=== PATIENT | female | born 1945 | race Caucasian/White ===

== ENCOUNTER 2017-07-04 23:52 | Inpatient (IN) | payer MEDICARE ==
[2017-07-05 00:59] LABS: Bilirubin Negative (Negative); Blood, Urine Negative (Negative); Clarity CLEAR (Clear); Glucose, Urine (Dipstick) Negative (Negative); Leukocyte Small (Negative); Nitrite Positive (Negative); Protein, Urine (Dipstick) Negative (Neg-Trace); Specific Gravity, Urine 1.017 (1.002-1.036); Urobilinogen 0.2 mg/dL (0.2-1.0); pH, Urine 5.5 (5.0-9.0)
[2017-07-05 01:02] LABS: Bacteria/HPF 4+ HPF (None Seen); Hyaline Casts/LPF 0-3 HYALINE CAST LPF (0-3 Hyaline); RBC/HPF 0-3 HPF (0-3); Squamous Epithelial None Seen HPF (0-3); WBC/HPF 0-3 HPF (0-3)
[2017-07-05] MEDS ORDERED: Dextrose 5% in Water 1,000 ML IV PRN (02:03)
[2017-07-05] MEDS ORDERED: HumaLOG 300 UNITS/3 ML VIAL SC PRN (02:03)
[2017-07-05] MEDS ORDERED: Dextrose 50% Abboject 50 ML SYRINGE SLOW IVP PRN ×2 (02:03)
[2017-07-05] MEDS ORDERED: Ondansetron ODT 4 MG TAB PO PRN (02:03)
[2017-07-05] MEDS ORDERED: Ondansetron HCl/PF 4 MG/2 ML Vial IVP PRN ×2 (02:03→17:43)
[2017-07-05] MEDS ORDERED: Acetaminophen 1,000 MG in Premix Bag 1 BAG IVPB SCH (02:03)
[2017-07-05] MEDS ORDERED: Ketorolac Tromethamine 30 MG/ML VIAL IVP SCH (02:03)
[2017-07-05 02:21] VITALS: BMI 56.6
[2017-07-05 02:21] LABS: #Lymphocytes 0.7 thou/uL (1.20-3.40); #Monocytes 1.2 thou/uL (0.11-0.59); %Basophils 0.1 % (0.0-1.0); %Eosinophils 0.2 % (0.0-10.0); %Lymphocytes 3.8 % (21.0-51.0); %Monocytes 6.8 % (0.0-10.0); %Neutrophils 89.1 % (42.0-75.0); Hemoglobin 11.3 g/dL (12.0-16.0); Mean Corpuscular HGB CONC 32.8 g/dL (32.0-36.0); Mean Corpuscular Hemoglobin 30.3 pg (27.0-31.0); Mean Corpuscular Volume 92.6 fl (81.0-99.0); Mean Platelet Volume 6.5 fL (7.4-10.4); Platelet Count 178 thou/uL (130-400); RBC Distribution Width 13.4 % (11.5-14.5); Red Blood Cell (RBC) Count 3.73 mill/uL (4.20-5.40)
--- NOTE | 2017-07-05 02:22 | HP ---
DATE OF ADMISSION: 07/04/2017 REQUESTING PHYSICIAN: Dr. Claudine Banerjee. ATTENDING SURGEON: Dr. Adam. CONSULTATIONS: Orthopedics, Dr. Lazaro. HISTORY OF PRESENT ILLNESS: Patient is a 72-year-old woman who was at home who ambulates w ith a walker when she was getting out of her chair to move to her walker. She was unable to get her feet properly when she fell, landing on her left lower extremity. The patient experienced immediate pain to her left ankle and knee. She was able to summon her son, who was in the house with her, who called EMS and the patient was brought to [facility] in [place], where she underwent evaluation and examination was noted to have a distal femur fracture on the left and a left bimalleolar ankle fr acture, at which time she was transferred to our facility for admission by the Trauma Service and [facility] evaluation. The patient denied loss of consciousness, shortness of breath, chest pain, or sy ncopal symptoms causing her fall. ALLERGIES: No drug allergies. CURRENT MEDICATIONS: 81 mg aspirin, biotin, Coreg, vitamin B12, ergocalciferol, iron supplement, Las ix, lisinopril, MiraLax, tramadol, vitamin D3. PAST MEDICAL HISTORY: Hyperlipidemia, heart murmur, polyarticular osteoarthritis, chronic leg pain, morbid obesity, tricuspid valve regurgitation, thyroid nodule, hypertension, hypertriglyceridemia, se asonal allergies, menopause, fibrocystic breast disease, heart valvular disease, coronary artery dise ase, and aortic stenosis. PAST SURGICAL HISTORY: Tonsillectomy and adenoidectomy, aortic valve replacement, cardiac pacemaker placement. SOCIAL HISTORY: Patient denies smoking, alcohol, or drug use. She currently lives at home with ernestina moran and ambulates with a walker. FAMILY HISTORY: Coronary artery disease. REVIEW OF SYSTEMS: Ten-point review of systems negative as otherwise stated. PHYSICAL EXAMINATION: VITAL SIGNS: Blood pressure 160/54, heart rate 82, respirations 20, temperature is 98.3, oxygen satu ration is 93% on 2 liters via nasal cannula. GENERAL: The patient is resting comfortably in bed. She is awake, alert, and oriented x3. Jessica coma scale is 15. HEENT: Head is normocephalic, atraumatic. Eyes: Extraocular motion intact. PERRLA bilaterally. E ars are atraumatic without discharge. Nose atraumatic without discharge. Oropharynx is clear. NECK: Nontender. Trachea is midline. No JVD. CHEST: Clear to auscultation with good inspiratory and expiratory effort. HEART: Regular rate and rhythm. ABDOMEN: Soft, flat, nontender with active bowel sounds. Pelvis is stable. EXTREMITIES: Bilateral upper extremities are neurovascularly intact and show full range of motion. There is a small contusion to the left wrist with minimal tenderness to palpation. Left lower extrem ity tenderness to palpation to the left knee consistent with her distal femur fracture. Remainder of her lower extremities immobilized in a posterior splint. She is able to wiggle her toes and has sen sation distally. The right lower extremity is unremarkable and neurovascularly intact. BACK: By history is reported as nontender and atraumatic. LABORATORY FINDINGS: White blood cell count 8.4, hemoglobin 12.6, hematocrit 40.7, platelets 207. I NR 1.0. Sodium 140, potassium 5.8, chloride 111, CO2 of 17, BUN 51, creatinine 1.47. LFTs are unrem arkable. Glucose 216. Cardiac enzymes are pending. RADIOGRAPHIC REPORTS: Two views of the left hip showed no acute left hip abnormality. Two views of the left ankle showed an acute minimally displaced fracture of the left distal fibula and medial mall eolus. Three views of the left knee showed acute comminuted fracture of the left distal femur fractu re. AP chest x-ray here shows no acute abnormalities. ASSESSMENT AND PLAN: 1. Status post ground level fall. 2. Acute pain secondary to trauma. 3. Closed distal left femur fracture. 4. Closed left bimalleolar fracture. 5. Hyperglycemia. 6. History of coronary artery disease. PLAN: We will be to admit the patient to the surgical floor for pain management. She will remain n. p.o. pulmonary toilet, gastritis prophylaxis, mechanical DVT prophylaxis. Orthopedic evaluation in t morning, Dr. Lazaro was notified prior to the patient's arrival. Patient will remain splinted. We will have physical and occupational therapy evaluate the patient postoperatively and most likely the patient will require inpatient rehabilitation. The evaluation, examination, radiographic, and la boratory findings will be discussed with Dr. Adam after this dictation.
[2017-07-05] MEDS: Sodium Chloride 0.9% 1,000 ML IV SCH ×3 (02:37→20:16)
[2017-07-05 02:46] LABS: CKMB 3.3 ng/mL (0-6.6); Troponin I Less than 0.010 ng/mL (< 0.028)
[2017-07-05 03:35] LABS: Anion Gap 12 mmol/L (10-20); BUN (Urea Nitrogen) 50 mg/dL (9.8-20.1); Calc. Creatinine Clearance 106 mL/min (70-130); Calcium 8.9 mg/dL (7.8-10.44); Carbon Dioxide 22 mmol/L (23-31); Chloride 112 mmol/L (98-107); Estimated GFR-MDRD 43; Glucose 196 mg/dL (83-110); Potassium 5.4 mmol/L (3.5-5.1); Sodium 141 mmol/L (136-145)
[2017-07-05] MEDS: Ketorolac Tromethamine 30 MG/ML VIAL IVP SCH ×3 (05:30→18:39)
--- NOTE | 2017-07-05 07:39 | RAD ---
CHEST 1 VIEW: Date: 07/05/17 HISTORY: Injury. COMPARISON: Chest 1 view dated 12/25/13. FINDINGS: The heart size is upper limits of normal. Mild pulmonary venous congestion. Mild prominence of the hi lum bilaterally. No pneumothorax. Dual lead pacer is similar. IMPRESSION: Cardiac silhouette upper limits of normal with mild prominence of the hilum bilaterally suggesting pu lmonary arterial hypertension. POS: [facility]
[2017-07-05] MEDS ORDERED: ePHEDrine/0.9% NaCl/PF SYRINGE 50 mg/10 ml ONE (07:41)
[2017-07-05] MEDS ORDERED: Lidocaine 1% PF 5 ML VIAL ONE (07:41)
[2017-07-05] MEDS ORDERED: Propofol 200 MG/20 ML VIAL ONE (07:41)
[2017-07-05] MEDS ORDERED: PHENYLEPHRINE-NS 100 MCG/ML 10 ML SYRINGE ONE (07:41)
[2017-07-05] MEDS ORDERED: Ondansetron HCl/PF 4 MG/2 ML Vial ONE (07:41)
[2017-07-05] MEDS ORDERED: CEFAZOLIN/Water 2 GM/20 ML SYRINGE SLOW IVP SCH (08:00)
--- NOTE | 2017-07-05 08:12 | CON ---
DATE OF CONSULTATION: 07/05/2017 CONSULTING PHYSICIAN: Dr. Shon Lazaro We were asked by ER and Trauma to see the patient. The patient was seen in [facility] found to have a distal left femur fracture and a left bimalleolar fracture of the ankle. The nestor ent states that she was in her normal state of health, but she has very bad knees. She states she zamarripa s to get up and lock her knees to get moving. She was unable to do so and fell. She was not able to walk after the fall because of pain. She denies hitting her head or any loss of consciousness. She has some good sensations in her legs. She is able to move both legs, obviously right better than le ft, due to the pain and because of the fracture. She did have a cardiac procedure a few years ago, b ct now sees her waitangi tribunal member once a year, so her cardiac health is improved. She does have a primar y doctor at [facility]. ALLERGIES: P[place]APP[place]. CURRENT MEDICATIONS: Biotin, carvedilol, vitamin B12, ergocalciferol, ferrous gluconate, Lasix, dax nopril, Nitrostat, MiraLax, tramadol, and vitamin D. PAST MEDICAL HISTORY: Hyperlipidemia, heart murmur, polyarticular osteoarthritis, leg pain, obesity, tricuspid valve regurg, thyroid nodules, hypertension, hypertriglyceridemia, allergies and menopause , fibrocystic breast disease, valvular disease, coronary artery disease, heart block, aortic stenosis . PAST SURGICAL HISTORY: Tonsils, adenoids, aortic valve replacement, cardiac pacemaker placement. SOCIAL HISTORY: Resides in [place]. No alcohol or nicotine or drug use. ACTIVITIES: The patient is in the water 5 days a week, but due to her significant knee pain she is u nable to do a lot of walking around. She has gotten deconditioned over time. REVIEW OF SYSTEMS: Denies any chest pain, shortness of breath. She is very pleasant, happy, until w e move that left lower extremity. Her left lower extremity is the main positive review of systems. PHYSICAL EXAMINATION: GENERAL: Well-nourished female. Family at bedside. Speech clear, fluent, oriented x3. HEENT: Normal exam. NECK: Supple. EXTREMITIES: Upper extremities, IV in the right hand. Otherwise extremities, bilateral upper extrem ities well. They are equal size, shape, symmetry, normal bulk and tone. Right lower extremity movin g well. DP, PT pulses intact. Left lower extremity, not in a knee immobilizer, but leg is bent and shortened. This is comfortable for her. She does have a splint on her left lower extremity. Sensat ions to the toes are intact and she is moving well. ASSESSMENT: Fall with ensuing left distal femur fracture and left bimalleolar fracture of the ankle. PLAN: I spoke with patient and family. Would like to get her set up for ORIF of both today. We hav e discussed risks and benefits of surgery and the patient is amenable to go forth with surgery as is family. The plan is to put a plate on the distal fibula and plate and screws at the ankle. We are w marking for Trauma to see if patient is medically cleared via Trauma and she may possibly need to see Cardiology.
[2017-07-05] MEDS: Famotidine 20 MG TAB PO SCH ×2 (10:10→20:17)
--- NOTE | 2017-07-05 10:11 | RAD ---
THREE VIEWS LEFT KNEE: Date: 07-05-17 History: Fracture. FINDINGS: There is a comminuted fracture involving the distal left femoral metadiaphysis with apex lateral and dorsal angulation of the fracture fragments. On the AP projection, the distal fracture fragment is di splaced laterally by approximately 3 cm. Osseous detail is limited on the AP and obliquely oriented v iews as these images were obtained with cross table imaging. There is osteoarthritis involving the le ft knee. There is narrowing of the medial joint compartment. Dense vascular calcifications are seen posterior to the knee. IMPRESSION: 1. Comminuted angulated and displaced fracture involving the distal left femoral metadiaphysis. 2. Diffuse osteopenia. 3. Osteoarthritis left knee. 4. Dense vascular calcifications. POS: [facility]
[2017-07-05] MEDS: Acetaminophen 1,000 MG in Premix Bag 1 BAG IVPB SCH ×3 (10:16→20:16)
--- NOTE | 2017-07-05 10:21 | RAD ---
LEFT ANKLE THREE VIEWS: History: Ankle injury. FINDINGS: Bones are demineralized. There is a obliquely oriented distal fibular shaft fracture which is nondisp laced. There also appears to be a posterior malleolar fracture and there is an obliquely oriented med ial malleolar fracture present. Overlying splint is seen. There are vascular and skin calcifications seen. IMPRESSION: Diffuse bony demineralization with a nondisplaced trimalleolar fracture. POS: [facility]
--- NOTE | 2017-07-05 10:56 | RAD ---
TWO VIEWS OF THE LEFT FEMUR: Date: 07-05-17 History: Trauma. Fracture left femur. FINDINGS: As noted on views of the left knee also obtained on this date, there is a comminuted fracture involvi ng the distal left femoral metadiaphysis with separation and displacement of fracture fragments, also described on views of the left knee. There is osteoarthritis involving the left knee with diffuse os teopenia. No additional fracture is appreciated. Dense vascular calcifications are seen in the iliac, femoral, and popliteal arteries. IMPRESSION: 1. Comminuted, displaced, and fracture involving the distal left femoral metadiaphysis. 2. Osteoarthritis left knee. POS: [facility]
[2017-07-05] MEDS ORDERED: CEFAZOLIN/Water 2 GM/20 ML SYRINGE ONE (12:27)
[2017-07-05] MEDS ORDERED: Fentanyl 250 MCG/5 ML VIAL ONE (12:51)
[2017-07-05] MEDS ORDERED: Atracurium 100 MG/10 ML VIAL ONE (12:52)
[2017-07-05] MEDS ORDERED: Levofloxacin 500 mg/D5W 100 ml Premix Bag ONE (13:27)
[2017-07-05] MEDS ORDERED: Albumin 25% 100 ML ONE (16:16)
[2017-07-05 16:42] LABS: #Monocytes 1.3 thou/uL (0.11-0.59); #Neutrophils 9.5 thou/uL (1.40-6.50); %Basophils 0.1 % (0.0-1.0); %Eosinophils 0.4 % (0.0-10.0); %Lymphocytes 8.7 % (21.0-51.0); %Monocytes 11.1 % (0.0-10.0); %Neutrophils 79.7 % (42.0-75.0); Mean Corpuscular HGB CONC 31.8 g/dL (32.0-36.0); Mean Corpuscular Hemoglobin 29.5 pg (27.0-31.0); Mean Corpuscular Volume 92.7 fl (81.0-99.0); Mean Platelet Volume 7.1 fL (7.4-10.4); Platelet Count 162 thou/uL (130-400); RBC Distribution Width 13.3 % (11.5-14.5); White Blood Cell (WBC) Count 11.9 thou/uL (4.8-10.8)
[2017-07-05 16:53] LABS: Anion Gap 11 mmol/L (10-20); BUN (Urea Nitrogen) 54 mg/dL (9.8-20.1); Calc. Creatinine Clearance 95 mL/min (70-130); Calcium 7.9 mg/dL (7.8-10.44); Carbon Dioxide 22 mmol/L (23-31); Chloride 113 mmol/L (98-107); Estimated GFR-MDRD 38; Glucose 187 mg/dL (83-110); Potassium 5.7 mmol/L (3.5-5.1); Sodium 140 mmol/L (136-145)
--- NOTE | 2017-07-05 16:58 | PRG ---
DATE OF SERVICE: 07/05/2017 ATTENDING PHYSICIAN: Dr. Jakob Adam. SUBJECTIVE: The patient is a 72-year-old female who was at home when she suffered a ground level fal l leading to a left bimalleolar ankle fracture and a left distal femur fracture. She was transferred to [place] on 07/04/2017 and admitted by Trauma Service and evaluated by Orthopedics. She is madhuri eduled to go to the OR today. On exam this morning, she vocalizes no complaints and reports that her pain is adequately controlled. OBJECTIVE: VITAL SIGNS: BP 124/67, pulse 89, temperature 98.5, respirations 20, O2 saturation 97% on room air. GENERAL: Patient is an elderly adult female resting in bed in no acute distress. HEENT: Normocephalic and atraumatic. LUNGS: Clear to auscultation bilaterally with normal effort respiration. CARDIOVASCULAR: Has a regular rate and rhythm. ABDOMEN: Soft and nontender with normal bowel sounds. EXTREMITIES: She is neurovascularly intact x4. LABORATORY DATA: Hematology: White blood cells 18.0, hemoglobin 11.3, hematocrit 34.5, platelets 17 8. Chemistry: Sodium 141, potassium 5.4, chloride 112, bicarbonate 22, BUN 50, creatinine 1.23. Ur inalysis positive for urine nitrites and leukocyte esterase with 4+ bacteria. Microbiology: Her uri ne culture was positive for presumably E. coli with greater than 100,000 colony forming units per mL. ASSESSMENT: 1. Status post ground level fall. 2. Acute traumatic pain. 3. Distal left femur fracture. 4. Left bimalleolar fracture. 5. Urinary tract infection. 6. Hyperglycemia. 7. History of coronary artery disease. PLAN: 1. OR today for surgical fixation of her left bimalleolar fracture and left distal femur fracture. 2. Patient will be started on Bactrim-DS for urinary tract infection. We will do a.m. labs to trend her white blood cell count. 2. Patient will have her pain control optimized postoperatively. We will encourage pulmonary toilet ing and begin a chemical deep venous prophylaxis as appropriate per orthopedic recommendations. 3. Rehab screen postoperatively. This patient was seen and examined along with Dr. Jakob Adam on rounds and agrees with the assessm ent and plan.
--- NOTE | 2017-07-05 17:35 | RAD ---
LEFT ANKLE INTRAOPERATIVE FLUOROSCOPY THREE VIEWS: 07/05/17 HISTORY: Left ankle fracture. FINDINGS/IMPRESSION: Intraoperative fluoroscopy was provided for internal fixation as performed by Dr. Lazaro. Spot fluo roscopic images show compression plate and multiple screws transfixing the lateral malleolus and a si ngle long screw transfixing the lateral malleolus. Alignment is anatomic. Skin rere are in place. There is dense calcifications of the arterial structures. FLUORO TIME: 6 seconds. POS: [facility]
--- NOTE | 2017-07-05 17:36 | RAD ---
LEFT FEMUR INTRAOPERATIVE FLUOROSCOPY TWO VIEWS 07/05/17 HISTORY: Fracture. FINDINGS/IMPRESSION: Intraoperative fluoroscopy was provided for internal fixation as performed by Dr. Lazaro. Spot fluo roscopic images show long lateral side plate transfixing the distal femur, in anatomic alignment. Mul tiple screws are in place. POS: [facility]
[2017-07-05] MEDS ORDERED: Nitroglycerin 0.4 MG TAB (25 Tab Bottle) SL PRN (17:48)
[2017-07-05 19:37] LABS: Hemoglobin 8.6 g/dL (12.0-16.0)
[2017-07-05] MEDS: Sulfameth/Trimethoprim DS 800-160mg TAB PO SCH (20:17)
[2017-07-05] MEDS: Ferrous Sulfate 325 MG TAB PO SCH (20:17)
[2017-07-05] MEDS: CEFAZOLIN/Water 2 GM/20 ML SYRINGE SLOW IVP SCH (20:23)
[2017-07-05] MEDS ORDERED: Carvedilol 6.25 MG TAB PO SCH (21:00)
[2017-07-05] MEDS: traMADol HCl 50 MG TAB PO SCH (23:53)
[2017-07-06] MEDS: Acetaminophen 1,000 MG in Premix Bag 1 BAG IVPB SCH (03:28)
[2017-07-06] MEDS: CEFAZOLIN/Water 2 GM/20 ML SYRINGE SLOW IVP SCH ×2 (03:28→13:11)
[2017-07-06] MEDS: traMADol HCl 50 MG TAB PO SCH ×3 (05:41→18:15)
[2017-07-06 05:52] LABS: Anion Gap 11 mmol/L (10-20); BUN (Urea Nitrogen) 56 mg/dL (9.8-20.1); Calc. Creatinine Clearance 81 mL/min (70-130); Calcium 7.6 mg/dL (7.8-10.44); Carbon Dioxide 23 mmol/L (23-31); Chloride 112 mmol/L (98-107); Estimated GFR-MDRD 32; Glucose 137 mg/dL (83-110); Magnesium 2.2 mg/dL (1.6-2.6); Phosphorus 4.9 mg/dL (2.3-4.7); Potassium 5.4 mmol/L (3.5-5.1); Sodium 141 mmol/L (136-145)
[2017-07-06 06:21] LABS: #Eosinphils 0.1 thou/uL (0.0-0.7); #Lymphocytes 1.2 thou/uL (1.20-3.40); #Monocytes 1.5 thou/uL (0.11-0.59); #Neutrophils 10.5 thou/uL (1.40-6.50); %Basophils 0.1 % (0.0-1.0); %Eosinophils 0.6 % (0.0-10.0); %Lymphocytes 8.8 % (21.0-51.0); %Monocytes 11.4 % (0.0-10.0); %Neutrophils 79.1 % (42.0-75.0); Hemoglobin 7.5 g/dL (12.0-16.0); Mean Corpuscular HGB CONC 32.3 g/dL (32.0-36.0); Mean Corpuscular Hemoglobin 31.1 pg (27.0-31.0); Mean Corpuscular Volume 96.4 fl (81.0-99.0); Mean Platelet Volume 7.5 fL (7.4-10.4); Platelet Count 120 thou/uL (130-400); RBC Distribution Width 13.5 % (11.5-14.5); Red Blood Cell (RBC) Count 2.39 mill/uL (4.20-5.40); White Blood Cell (WBC) Count 13.2 thou/uL (4.8-10.8)
[2017-07-06] MEDS ORDERED: Sodium Chloride 0.9% 500 ML IV ONE (08:10)
[2017-07-06] MEDS: Cyanocobalamin (Vitamin B-12) 1,000 MCG TAB PO SCH (08:35)
[2017-07-06] MEDS: Acetaminophen 500 MG TAB PO SCH ×3 (08:35→20:45)
[2017-07-06] MEDS: Famotidine 20 MG TAB PO SCH ×2 (08:36→20:45)
[2017-07-06] MEDS: Ferrous Sulfate 325 MG TAB PO SCH ×2 (08:36→20:45)
[2017-07-06] MEDS: Sulfameth/Trimethoprim DS 800-160mg TAB PO SCH ×2 (08:44→20:45)
[2017-07-06] MEDS: Heparin 5,000 UNITS/ML VIAL SC SCH ×3 (08:55→20:45)
[2017-07-06] MEDS ORDERED: Biotin [Biotin] 2,500 MCG PO SCH (09:00)
[2017-07-06] MEDS ORDERED: Lisinopril 20 MG TAB PO SCH (09:00)
[2017-07-06] MEDS ORDERED: Polyethylene Glycol 3350 17 GM Packet PO SCH ×2 (09:00→12:45)
[2017-07-06] MEDS: Ascorbic Acid 500 mg Chewable Tablet PO SCH ×2 (11:18→20:45)
[2017-07-06] MEDS: Senokot S 8.6-50 MG TAB PO SCH ×2 (11:19→20:45)
[2017-07-06] MEDS: Sodium Chloride 0.9% 1,000 ML IV SCH ×2 (16:52→20:44)
--- NOTE | 2017-07-06 16:57 | PRG ---
DATE OF SERVICE: 07/06/2017 ATTENDING PHYSICIAN: Jakob Adam DO SUBJECTIVE: The patient is a 72-year-old female who was at home when she suffered a ground level fal l leading to a left bimalleolar ankle fracture and a left distal femur fracture. She is now postop d ay #1 status post open reduction internal fixation. She has been tolerating a solid diet and voices no complaints this morning. She reports that her pain control is currently adequate. OBJECTIVE: VITAL SIGNS: BP 133/62, pulse 84, temperature 97.6, respirations 16, O2 sat 100% on room air. GENERAL: The patient is an elderly adult female, resting in bed, in no acute distress. HEENT: Normocephalic and atraumatic. LUNGS: Breath sounds are clear to auscultation bilaterally with normal effort. CARDIOVASCULAR: Has regular rate and rhythm. ABDOMEN: Soft, nontender with normal bowel sounds. EXTREMITIES: She is neurovascularly intact x4. LABORATORY DATA: Hematology: WBC is 13.2, hemoglobin 7.5, hematocrit 23.1, platelets 120. Chemistr y: Sodium 141, potassium 5.4, chloride 112, bicarbonate 23, BUN 56, creatinine 1.6, glucose 137, susana cium 7.6, phosphorus 4.9. Microbiology: Urine culture significant for E. coli. RADIOGRAPHIC FINDINGS: There are no images to review today. ASSESSMENT: 1. Status post ground level fall. 2. Acute traumatic pain. 3. Distal left femur fracture. 4. Left bimalleolar fracture. 5. Urinary tract infection. 6. Hyperglycemia. 7. Acute blood loss anemia. 8. Acute kidney injury. 9. History of coronary artery disease. PLAN: 1. Continue pain control as currently ordered. 2. We will get the patient one 500 mL bolus of fluid this morning as well as a unit of packed red bl ood cells. We will also continue to trend labs and monitor strict I's and O's. 3. Continue Bactrim-DS for urinary tract infection. 4. Patient has been evaluated by rehab and judged to be a good candidate for long term. Case management following to assist in placement and discharge planning. This patient was seen and examined along with Dr. Jakob Adam on rounds, who agrees with the assess ment and plan.
[2017-07-06] MEDS ORDERED: CEFAZOLIN SLOW IVP SCH (20:00)
[2017-07-06] MEDS ORDERED: STERILE WATER SLOW IVP SCH (20:00)
[2017-07-07] MEDS: Acetaminophen 500 MG TAB PO SCH ×5 (00:55→21:52)
[2017-07-07] MEDS: traMADol HCl 50 MG TAB PO SCH ×4 (00:55→18:05)
[2017-07-07] MEDS: Sodium Chloride 0.9% 1,000 ML IV SCH (05:33)
[2017-07-07 06:03] LABS: #Eosinphils 0.3 thou/uL (0.0-0.7); #Monocytes 1.4 thou/uL (0.11-0.59); #Neutrophils 7.5 thou/uL (1.40-6.50); %Basophils 0.3 % (0.0-1.0); %Eosinophils 2.5 % (0.0-10.0); %Lymphocytes 10.1 % (21.0-51.0); %Monocytes 13.9 % (0.0-10.0); %Neutrophils 73.2 % (42.0-75.0); Hemoglobin 7.6 g/dL (12.0-16.0); Mean Corpuscular HGB CONC 32.9 g/dL (32.0-36.0); Mean Corpuscular Hemoglobin 30.5 pg (27.0-31.0); Mean Corpuscular Volume 92.6 fl (81.0-99.0); Mean Platelet Volume 7.1 fL (7.4-10.4); Platelet Count 102 thou/uL (130-400); RBC Distribution Width 13.5 % (11.5-14.5); White Blood Cell (WBC) Count 10.3 thou/uL (4.8-10.8)
[2017-07-07 06:34] LABS: Anion Gap 9 mmol/L (10-20); BUN (Urea Nitrogen) 48 mg/dL (9.8-20.1); Calc. Creatinine Clearance 87 mL/min (70-130); Calcium 7.6 mg/dL (7.8-10.44); Carbon Dioxide 24 mmol/L (23-31); Chloride 112 mmol/L (98-107); Estimated GFR-MDRD 34; Glucose 126 mg/dL (83-110); Magnesium 2.2 mg/dL (1.6-2.6); Phosphorus 3.5 mg/dL (2.3-4.7); Sodium 140 mmol/L (136-145)
[2017-07-07] MEDS: Polyethylene Glycol 3350 17 GM Packet PO SCH (08:24)
[2017-07-07] MEDS: Ascorbic Acid 500 mg Chewable Tablet PO SCH ×2 (08:24→21:53)
[2017-07-07] MEDS: Senokot S 8.6-50 MG TAB PO SCH ×2 (08:25→21:53)
[2017-07-07] MEDS: Cyanocobalamin (Vitamin B-12) 1,000 MCG TAB PO SCH (08:26)
[2017-07-07] MEDS: Famotidine 20 MG TAB PO SCH ×2 (08:26→21:52)
[2017-07-07] MEDS: Ferrous Sulfate 325 MG TAB PO SCH ×2 (08:26→21:53)
[2017-07-07] MEDS: Sulfameth/Trimethoprim DS 800-160mg TAB PO SCH ×2 (08:26→21:53)
[2017-07-07] MEDS: Heparin 5,000 UNITS/ML VIAL SC SCH ×3 (08:26→21:53)
--- NOTE | 2017-07-07 11:53 | PRG ---
DATE OF SERVICE: 07/07/2017 ATTENDING PHYSICIAN: Dr. Salomon. SUBJECTIVE: The patient is a 72-year-old female who was diagnosed with a left bimalleolar ankle frac ture and left distal femur fracture after suffering a ground level fall 2 days ago. She is now posto p day #2 status post open reduction and internal fixation. She has been tolerating a solid diet and reports adequate pain control this morning. She voices no other complaints this morning. OBJECTIVE: VITAL SIGNS: BP 120/67, pulse 80, temperature 98.2, respirations 18, O2 sat 92% on 1 liter. GENERAL APPEARANCE: Patient is an elderly adult female resting in bed in no acute distress. HEENT: Normocephalic, atraumatic. RESPIRATORY: Breath sounds are clear to auscultation bilaterally with normal effort. CARDIOVASCULAR: She has regular rate and rhythm with no murmurs, gallops or rubs. ABDOMEN: Soft, nontender and nondistended. She has normal bowel sounds. EXTREMITIES: She is neurovascularly intact x4. LABORATORY DATA: Hematology; WBC is 10.3, hemoglobin 7.6, hematocrit 23.1, and platelets 102. Chemi stry: Sodium 140, potassium 5.0, chloride 112, bicarbonate 24, BUN 48, creatinine 1.5, glucose 126, and calcium 7.6. IMAGING: There are no images to review today. ASSESSMENT: 1. Status post ground level fall. 2. Distal left femur fracture. 3. Left bimalleolar fracture. 4. Urinary tract infection. 5. Acute blood loss anemia. 6. Acute kidney injury. 7. Acute traumatic pain. 8. Hyperglycemia. 9. History of coronary artery disease, present on admission. PLAN: 1. We will continue current pain control regimen which is adequate. The patient's urinary output zamarripa s improved since yesterday. She has put out a liter over the last 24 hours, which is double which deepti padilla put out the day before. We will continue maintenance IV fluids and monitor her urine output. Flui d boluses as appropriate. Continue to trend her kidney function. 2. We will hold off on further blood products this morning until the patient works with PT and OT. If she becomes symptomatic during this activity, then we will consider giving her an additional unit of PRBCs. 3. Continue Bactrim DS for urinary tract infection. 4. Case management following to assist with discharge planning. The [facility] next week. This patient was discussed over the phone with Dr. Jakob Adam who agrees with the assessment and p
[2017-07-08] MEDS: traMADol HCl 50 MG TAB PO SCH ×4 (00:42→17:51)
[2017-07-08] MEDS: Acetaminophen 500 MG TAB PO SCH ×4 (03:59→21:40)
[2017-07-08 05:17] LABS: #Eosinphils 0.3 thou/uL (0.0-0.7); #Monocytes 1.4 thou/uL (0.11-0.59); #Neutrophils 7.3 thou/uL (1.40-6.50); %Basophils 0.2 % (0.0-1.0); %Eosinophils 2.8 % (0.0-10.0); %Lymphocytes 9.9 % (21.0-51.0); %Monocytes 13.6 % (0.0-10.0); %Neutrophils 73.5 % (42.0-75.0); Hemoglobin 7.3 g/dL (12.0-16.0); Mean Corpuscular Hemoglobin 30.1 pg (27.0-31.0); Mean Corpuscular Volume 94.1 fl (81.0-99.0); Mean Platelet Volume 7.2 fL (7.4-10.4); Platelet Count 129 thou/uL (130-400); RBC Distribution Width 13.5 % (11.5-14.5); Red Blood Cell (RBC) Count 2.42 mill/uL (4.20-5.40)
[2017-07-08 05:37] LABS: Anion Gap 8 mmol/L (10-20); BUN (Urea Nitrogen) 42 mg/dL (9.8-20.1); Calc. Creatinine Clearance 101 mL/min (70-130); Calcium 7.8 mg/dL (7.8-10.44); Carbon Dioxide 23 mmol/L (23-31); Chloride 112 mmol/L (98-107); Estimated GFR-MDRD 41; Glucose 120 mg/dL (83-110); Magnesium 2.3 mg/dL (1.6-2.6); Phosphorus 2.9 mg/dL (2.3-4.7); Potassium 5.3 mmol/L (3.5-5.1); Sodium 138 mmol/L (136-145)
[2017-07-08] MEDS: Heparin 5,000 UNITS/ML VIAL SC SCH ×3 (09:00→21:43)
[2017-07-08] MEDS: Polyethylene Glycol 3350 17 GM Packet PO SCH (09:00)
[2017-07-08] MEDS: Sulfameth/Trimethoprim DS 800-160mg TAB PO SCH ×2 (09:03→21:44)
[2017-07-08] MEDS: Ferrous Sulfate 325 MG TAB PO SCH ×2 (09:03→21:44)
[2017-07-08] MEDS: Cyanocobalamin (Vitamin B-12) 1,000 MCG TAB PO SCH (09:03)
[2017-07-08] MEDS: Senokot S 8.6-50 MG TAB PO SCH ×2 (09:03→21:43)
[2017-07-08] MEDS: Famotidine 20 MG TAB PO SCH ×2 (09:04→21:44)
[2017-07-08] MEDS: Ascorbic Acid 500 mg Chewable Tablet PO SCH ×2 (09:05→21:44)
[2017-07-08] MEDS: Sodium Chloride 0.9% 1,000 ML IV SCH (10:30)
--- NOTE | 2017-07-08 17:19 | PRG ---
DATE OF SERVICE: 07/08/2017 ATTENDING PHYSICIAN: Dr. Salomon. SUBJECTIVE: The patient is a 72-year-old female with a left bimalleolar fracture and left distal fem ur fracture. She got after suffering a ground level fall on 07/05/2017. She is now postop day #3 st atus post open reduction internal fixation. She has been tolerating solid diet and reports adequate pain control. She reports no complaints on exam this morning. OBJECTIVE: VITAL SIGNS: BP 143/62, pulse 88, temperature 98.7, respirations 16, O2 sat 93% on room air. GENERAL: The patient is an elderly adult female resting in bed in no acute distress. HEENT: Normocephalic, atraumatic. RESPIRATORY: Her breath sounds are clear to auscultation bilaterally with normal effort. CARDIOVASCULAR: She has a regular rate and rhythm with no murmurs, gallops or rubs. ABDOMEN: Soft, nontender, nondistended. She has normal bowel sounds. EXTREMITIES: She is neurovascularly intact x4. LABORATORY DATA: WBC is 4.0, hemoglobin 7.3, hematocrit 22.8, platelets 129. Chemistry: Sodium 138 , potassium 5.3, chloride 112, bicarbonate 23, BUN 42, creatinine 1.29, glucose 120, calcium 7.8, ingrid sphorus 2.9, magnesium 2.3. IMAGING: There are no images to review today. ASSESSMENT: 1. Status post ground level fall. 2. Distal left femur fracture. 3. Left bimalleolar fracture. 4. Urinary tract infection. 5. Acute blood loss anemia. 6. Acute kidney injury. 7. Acute traumatic pain. 8. Hyperglycemia. 9. History of coronary artery disease, present on admission. PLAN: 1. Continue pain control as currently ordered. 2. The patient continues to have good urine output. We will continue to hold Lasix given her acute kidney injury; however, this seems to be improving. 3. Continue Bactrim for UTI. 4. The patient has a stable hemoglobin and hematocrit. These values are low, but given that she is asymptomatic, we will hold off on repeating blood products for the moment. 5. Case management following this discharge planning. The patient will be discharged to [facility] early next week. The patient was discussed over the phone with Dr. Jakob Adam who agrees with the assessment and pl an.
[2017-07-09] MEDS: traMADol HCl 50 MG TAB PO SCH ×4 (00:16→17:46)
[2017-07-09] MEDS: Acetaminophen 500 MG TAB PO SCH ×4 (03:16→22:04)
[2017-07-09 05:40] LABS: #Basophils 0.1 thou/uL (0.0-0.2); #Eosinphils 0.3 thou/uL (0.0-0.7); #Monocytes 1.4 thou/uL (0.11-0.59); #Neutrophils 7.5 thou/uL (1.40-6.50); %Basophils 0.6 % (0.0-1.0); %Eosinophils 2.6 % (0.0-10.0); %Lymphocytes 9.6 % (21.0-51.0); %Monocytes 13.6 % (0.0-10.0); %Neutrophils 73.6 % (42.0-75.0); Hemoglobin 7.7 g/dL (12.0-16.0); Mean Corpuscular HGB CONC 30.9 g/dL (32.0-36.0); Mean Platelet Volume 6.9 fL (7.4-10.4); Platelet Count 200 thou/uL (130-400); RBC Distribution Width 13.2 % (11.5-14.5); Red Blood Cell (RBC) Count 2.65 mill/uL (4.20-5.40); White Blood Cell (WBC) Count 10.2 thou/uL (4.8-10.8)
[2017-07-09 06:05] LABS: Anion Gap 10 mmol/L (10-20); BUN (Urea Nitrogen) 32 mg/dL (9.8-20.1); Calc. Creatinine Clearance 114 mL/min (70-130); Calcium 8.3 mg/dL (7.8-10.44); Carbon Dioxide 24 mmol/L (23-31); Chloride 111 mmol/L (98-107); Estimated GFR-MDRD 47; Glucose 128 mg/dL (83-110); Magnesium 2.2 mg/dL (1.6-2.6); Phosphorus 2.5 mg/dL (2.3-4.7); Potassium 5.5 mmol/L (3.5-5.1); Sodium 139 mmol/L (136-145)
[2017-07-09] MEDS: Polyethylene Glycol 3350 17 GM Packet PO SCH (08:21)
[2017-07-09] MEDS: Cyanocobalamin (Vitamin B-12) 1,000 MCG TAB PO SCH (08:22)
[2017-07-09] MEDS: Furosemide 20 MG TAB PO SCH (08:22)
[2017-07-09] MEDS: Senokot S 8.6-50 MG TAB PO SCH ×2 (08:23→22:05)
[2017-07-09] MEDS: Sulfameth/Trimethoprim DS 800-160mg TAB PO SCH ×2 (08:24→22:05)
[2017-07-09] MEDS: Heparin 5,000 UNITS/ML VIAL SC SCH ×3 (08:24→22:05)
[2017-07-09] MEDS: Famotidine 20 MG TAB PO SCH ×2 (08:24→22:04)
[2017-07-09] MEDS: Ascorbic Acid 500 mg Chewable Tablet PO SCH ×2 (08:24→22:04)
[2017-07-09] MEDS: Ferrous Sulfate 325 MG TAB PO SCH ×2 (08:24→22:05)
[2017-07-09] MEDS: Bisacodyl 10 MG SUPP PR SCH (09:10)
--- NOTE | 2017-07-09 17:11 | PRG ---
DATE OF SERVICE: 07/09/2017 ATTENDING PHYSICIAN: Jakob Adam DO SUBJECTIVE: The patient is a 72-year-old female with a left bimalleolar fracture, left distal femur fracture, which she received after suffering a ground level fall on 07/05/2017. She is now postop da y #4 status post open reduction internal fixation. She is tolerating a solid diet and reports adequa te pain control. She has had her Post catheter out now and her home meds restarted. She voices no complaints this morning on exam. OBJECTIVE: VITAL SIGNS: BP 162/71, pulse 99, temperature 98.6, respirations 20, O2 sat 93% on room air. GENERAL APPERANCE: The patient is an elderly adult female resting in bed in no acute distress. HEENT: Normocephalic and atraumatic. RESPIRATORY: Breath sounds clear to auscultation bilaterally with normal effort. CARDIOVASCULAR: She has regular rate and rhythm with no murmurs, gallops, or rubs. ABDOMEN: Soft, nontender, nondistended. She has normal bowel sounds. EXTREMITIES: She is neurovascularly intact x4. NEUROLOGIC: Her GCS is 15. LABORATORY DATA: Hematology: WBC is 10.2, hemoglobin 7.7, hematocrit 24.9, platelets 200. Chemistr y: Sodium 139, potassium 5.5, chloride 111, bicarbonate 24, BUN 32, creatinine 1.14, glucose 128. IMAGING: There are no images to review today. ASSESSMENT: 1. Status post ground level fall. 2. Distal left femur fracture. 3. Left bimalleolar ankle fracture. 4. Urinary tract infection. 5. Acute blood loss anemia. 6. Acute kidney injury. 7. Acute traumatic pain. 8. Hyperglycemia. 9. History of coronary artery disease, present on admission. PLAN: 1. Continue pain control as currently ordered. 2. The patient has been making good urine and her creatinine has improved this morning. We will res tart her home Lasix. 3. Continue Bactrim for urinary tract infection. 4. The patient's hematocrit and hemoglobin are stable, but low. 5. Case management following for discharge planning. The patient will be discharged to a skilled [facility] facility pending approval. This patient was seen and examined along with Dr. Jakob Adam at rounds, who agrees with the assess ment and plan.
--- NOTE | 2017-07-09 20:30 | OP ---
DATE OF SURGERY: 07/05/2017 PREOPERATIVE DIAGNOSES: 1. Left supracondylar/intercondylar distal femur fracture. 2. Left trimalleolar ankle fracture. POSTOPERATIVE DIAGNOSES: 1. Left supracondylar/intercondylar distal femur fracture. 2. Left trimalleolar ankle fracture. SURGICAL PROCEDURES: 1. Open reduction and internal fixation of left supracondylar/intercondylar distal femur fracture. 2. Open reduction and internal fixation of left ankle. ANESTHESIA: General. SURGEON: Shon Lazaro M.D. INDUSTRIAL ARTS TEACHER: Antonio Wetzel PA-C ESTIMATED BLOOD LOSS: One liter. IMPLANTS: 1. Synthes 12-hole distal lateral femoral plate with combination of 5.0 and 4.5 mm screws. 2. Synthes 1/3 tubular 8-hole plate with small fragment screws for the left ankle. COMPLICATIONS: None. DRAINS: None. SPECIMEN: None. OUTCOME: Satisfactory. INDICATIONS: The patient is a 72-year-old lady status post fracture of left distal femur and left an kle. Both fractures displaced. The patient is also morbidly obese. After discussion with the patie nt including risks and benefits, we decided to proceed with open reduction and internal fixation of b oth fractures. Informed consent has been obtained. All questions answered. PROCEDURE IN DETAIL: The patient was brought to the operating room and a timeout performed followed by the induction of general anesthesia. The patient was positioned supine on the OR table then a radha rile prep and drape was performed of this left lower extremity. Next, a lateral incision was made at the knee. After the skin was sharply incised, dissection was carried down to the underlying IT band . This was split in line with the skin incision reflected anteriorly and posteriorly gaining access to the lateral aspect of the lateral femoral condyle. The surgical extension was then made further p roximally given the size of the leg. Next, with longitudinal traction, a femoral distractor was appl ied with pin placed in the femur and another into the tibia to apply traction, which resulted in reas onably good alignment of the fracture. A 12-hole plate was then passed along the lateral cortex of t he femur in a sub and periosteal fashion. Next, an attempt was made to apply a K-wire into the proxi mal most limb of the plate; however, due to the girth of the leg, percutaneous technique was not poss ible and the jig for the proximal screw placement could not fit outside the skin due to the girth of the leg. As such, this jig was removed and then the incision made proximally to allow for palpation of the lateral cortex of the femur. Once this was accomplished, an initial pin was placed through th e center hole distally in the epicondylar axis and then a second pin was applied proximally. Next, a cortical screw was applied proximally to get compression of the plate against the femur. This was t hen followed by placement of multiple locking screws distally and then additional cortical screws pro ximally through this rather sizeable incision. Once all hardware was placed, she was found to have a natomic alignment on the AP view, but a slight step off on lateral view; however, it is felt to be ac ceptable given the size of this leg and the difficulty in achieving an anatomic reduction. Next, the wound was irrigated with 3 liters of normal saline using Pulsavac and then closed in layers with #1 Vicryl for the IT band, and tensor fascia, 0 Vicryl for Sonido's fascia, 2-0 Vicryl and rere for t he skin. Next, attention was placed at the left ankle. She did have a trimalleolar ankle fracture. First, at tention was placed laterally. An incision was made over the distal fibula. After skin was sharply i ncised, dissection was carried down bluntly to the underlying fracture. The fracture was reduced and held in place with bone tenaculum and then an 8-hole 1/3 tubular plate was applied to the lateral co rtex of the distal fibula. This was held in place with a combination of 3.5 mm cortical screws and f ully threaded cancellous screws. At the completion of this, AP and lateral C-arm images were obtaine d, which showed good alignment of the fracture on AP view and the small posterior malleolar fragment felt to be acceptably aligned. Next, attention was placed medially. A second incision was made over the medial malleolus. Open reduction was performed of the malleolar fragment and then a single scre w was placed in this fragment due to the significant comminution more posteriorly. Final AP, lateral and mortise x-rays were obtained in the operating room and then these wounds were closed as well aft er bulb syringe was used for irrigation. They were closed in layers with 0 Vicryl deep followed by 2 -0 Vicryl and then rere for the skin. Xeroform gauze, Webril, and a sugar tong splint was applied to the ankle. The thigh was dressed with Xeroform gauze and Webril with an Dave wrap overwrapping. At the completion of this, the patient was transferred to recovery room in stable condition. There w ere no complications. She tolerated the procedure well.
[2017-07-10] MEDS: traMADol HCl 50 MG TAB PO SCH ×4 (01:01→18:14)
[2017-07-10] MEDS: Acetaminophen 500 MG TAB PO SCH ×4 (05:16→20:48)
[2017-07-10 05:48] LABS: Anion Gap 9 mmol/L (10-20); BUN (Urea Nitrogen) 29 mg/dL (9.8-20.1); Calc. Creatinine Clearance 127 mL/min (70-130); Calcium 8.2 mg/dL (7.8-10.44); Carbon Dioxide 25 mmol/L (23-31); Chloride 109 mmol/L (98-107); Estimated GFR-MDRD 53; Glucose 140 mg/dL (83-110); Magnesium 1.9 mg/dL (1.6-2.6); Phosphorus 2.4 mg/dL (2.3-4.7); Potassium 4.8 mmol/L (3.5-5.1); Sodium 138 mmol/L (136-145)
[2017-07-10] MEDS: Ascorbic Acid 500 mg Chewable Tablet PO SCH ×2 (08:01→20:48)
[2017-07-10] MEDS: Famotidine 20 MG TAB PO SCH ×2 (08:01→20:48)
[2017-07-10] MEDS: Cyanocobalamin (Vitamin B-12) 1,000 MCG TAB PO SCH (08:02)
[2017-07-10] MEDS: Ferrous Sulfate 325 MG TAB PO SCH ×2 (08:02→20:47)
[2017-07-10] MEDS: Furosemide 20 MG TAB PO SCH (08:02)
[2017-07-10] MEDS: Sulfameth/Trimethoprim DS 800-160mg TAB PO SCH ×2 (08:02→20:48)
[2017-07-10] MEDS: Bisacodyl 10 MG SUPP PR SCH (08:03)
[2017-07-10] MEDS: Polyethylene Glycol 3350 17 GM Packet PO SCH (08:03)
[2017-07-10] MEDS: Senokot S 8.6-50 MG TAB PO SCH ×2 (08:03→20:49)
[2017-07-10] MEDS: Heparin 5,000 UNITS/ML VIAL SC SCH ×3 (08:03→20:49)
--- NOTE | 2017-07-10 08:06 | RAD ---
AP VIEW OF CHEST: Date: 07/10/17 INDICATION: Atelectasis. COMPARISON: Prior study dated 07/05/17. FINDINGS: Mild cardiomegaly and dual lead pacemaker is unchanged. No air space consolidation or pleural effusio n is evident. Diffuse interstitial prominence is stable. No acute osseous abnormality is evident. IMPRESSION: Stable exam. POS: CLAIR
--- NOTE | 2017-07-10 18:41 | PRG ---
DATE OF SERVICE: 07/10/2017 ATTENDING PHYSICIAN: Dr. Jakob Adam. SUBJECTIVE: The patient is a 72-year-old female status post ORIF of left bimalleolar and left distal femur fracture. She has had adequate pain control. She is tolerating a regular diet and she is working with physical and occupational therapy. OBJECTIVE: VITAL SIGNS: Temperature 99.7, pulse 104, respirations 16, O2 sat 92% on room air, blood pressure 119/47. GENERAL: Elderly female sitting in the bed in no acute distress. HEENT: Normocephalic, atraumatic. RESPIRATORY: No respiratory distress. Even unlabored. CARDIOVASCULAR: Regular rate and rhythm. No complaints of chest pain. ABDOMEN: Soft, nontender, nondistended. EXTREMITIES: Splint left lower extremity. All extremities are neurovascularly intact. Cap refill brisk. NEUROLOGIC: Awake, alert, oriented x3. GCS 15. LABORATORY DATA: Chemistry: Sodium 138, potassium 4.8 down from 5.5 yesterday , chloride 109, carbon dioxide 25, BUN 29, down from 32 yesterday, creatinine is 1.02 down from 1.14 yesterday. Glucose is 140. ASSESSMENT: 1. Status post ground level fall. 2. Status post ORIF left bimalleolar ankle fracture, left distal femur fracture. 3. Urinary tract infection, treated with Bactrim. 4. Acute kidney injury, resolving. 5. Acute traumatic pain, well controlled. PLAN: 1. Continue current oral analgesia as ordered. 2. Continue mobilizing with PT, OT. 3. Bactrim for urinary tract infection, we will stop tonight after 2100 dose as she has been on it for a total of 5 days. 4. Case management following for discharge planning. The patient pending insurance approval for SNF placement. The patient was seen and examined with Dr. Adam who agrees with the assessment and plan. [facility]
[2017-07-10] MEDS ORDERED: Magnesium 2 GM/NS 0.9% 100 ML 2 GM in Premix Bag 1 BAG IVPB SCH (19:30)
[2017-07-11] MEDS: traMADol HCl 50 MG TAB PO SCH ×4 (00:04→17:20)
[2017-07-11] MEDS: Acetaminophen 500 MG TAB PO SCH ×4 (05:52→21:21)
[2017-07-11 06:08] LABS: Band 1 % (5-11); Eosinophils 2 % (0-10); Hemoglobin 8.5 g/dL (12.0-16.0); Lymphocytes 4 % (21-51); MDiff Complete? YES; Mean Corpuscular Hemoglobin 30.3 pg (27.0-31.0); Mean Corpuscular Volume 94.7 fl (81.0-99.0); Mean Platelet Volume 7.1 fL (7.4-10.4); Monocytes 17 % (0-10); Neutrophil 76 % (42-75); Platelet Count 270 thou/uL (130-400); RBC Distribution Width 13.5 % (11.5-14.5); Red Blood Cell (RBC) Count 2.82 mill/uL (4.20-5.40); White Blood Cell (WBC) Count 10.7 thou/uL (4.8-10.8)
[2017-07-11] MEDS ORDERED: Furosemide 20 MG/2 ML VIAL SLOW IVP SCH (08:15)
[2017-07-11 08:38] LABS: Anion Gap 10 mmol/L (10-20); BUN (Urea Nitrogen) 23 mg/dL (9.8-20.1); Calc. Creatinine Clearance 143 mL/min (70-130); Calcium 8.7 mg/dL (7.8-10.44); Carbon Dioxide 26 mmol/L (23-31); Chloride 105 mmol/L (98-107); Estimated GFR-MDRD 61; Glucose 146 mg/dL (83-110); Magnesium 1.9 mg/dL (1.6-2.6); Phosphorus 2.7 mg/dL (2.3-4.7); Potassium 4.5 mmol/L (3.5-5.1); Sodium 136 mmol/L (136-145)
[2017-07-11] MEDS: Lisinopril 20 MG TAB PO SCH (09:10)
[2017-07-11] MEDS: Bisacodyl 10 MG SUPP PR SCH (09:11)
[2017-07-11] MEDS: Polyethylene Glycol 3350 17 GM Packet PO SCH (09:11)
[2017-07-11] MEDS: Senokot S 8.6-50 MG TAB PO SCH ×2 (09:12→21:22)
[2017-07-11] MEDS: Famotidine 20 MG TAB PO SCH ×2 (09:12→21:21)
[2017-07-11] MEDS: Ascorbic Acid 500 mg Chewable Tablet PO SCH ×2 (09:13→21:21)
[2017-07-11] MEDS: Cyanocobalamin (Vitamin B-12) 1,000 MCG TAB PO SCH (09:13)
[2017-07-11] MEDS: Ferrous Sulfate 325 MG TAB PO SCH ×2 (09:13→21:21)
[2017-07-11] MEDS: Sulfameth/Trimethoprim DS 800-160mg TAB PO SCH ×2 (09:14→21:22)
[2017-07-11] MEDS: Heparin 5,000 UNITS/ML VIAL SC SCH ×3 (09:26→21:21)
[2017-07-11] MEDS ORDERED: Magnesium 2 GM/NS 0.9% 100 ML 2 GM in Premix Bag 1 BAG IVPB SCH (12:15)
--- NOTE | 2017-07-11 17:00 | PRG ---
DATE OF SERVICE: 07/11/2017 ATTENDING PHYSICIAN: Dr. Jakob Adam. SUBJECTIVE: The patient is a 72-year-old female status post ORIF of left bimalleolar and left distal femur fracture. She reports adequate pain control. She is tolerating a regular diet. She is mobil izing with physical and occupational therapy.
--- NOTE | 2017-07-11 17:28 | PRG ---
DATE OF SERVICE: 07/11/2017 ATTENDING PHYSICIAN: Jakob Adam DO SUBJECTIVE: The patient is a 72-year-old female status post ORIF of the left bimalleolar and left di stal femur fracture. She has reported adequate pain control and tolerating a regular diet. She is w orking with physical and occupational therapy while lying in bed. Last night, I was called to the me omt because the patient had tachycardia into the 120s. EKG was obtained, which showed sinus tachycar joaquina. EKG showed a bundle branch block, same as previous. She had no symptoms. She had no chest herminio n, no shortness of breath. She was transfused 1 unit of PRBCs. Magnesium was replaced. Her heart r ate subsequently came down to approximately 100. She reported no other problems through the night. OBJECTIVE: VITAL SIGNS: Temperature 98.5, pulse 100, O2 sats 95% on room air, respirations 14. GENERAL: Elderly female lying in bed in no acute distress. HEENT: Normocephalic, atraumatic. RESPIRATORY: No respiratory distress. Respirations are even and unlabored. Breath sounds are leonarda l. CARDIOVASCULAR: Regular rate and rhythm. No complaints of chest pain. Heart sounds are normal. ABDOMEN: Soft, nontender, nondistended. EXTREMITIES: Splint in left lower extremity. All extremities are neurovascularly intact. Cap refil l is brisk. NEUROLOGIC: Awake, alert, oriented x3. GCS 15. LABORATORY DATA: Hematology: WBC 10.7; RBC 2.82; hemoglobin 8.5, up from 7.7 yesterday; hematocrit 26.7, up from 24.9 yesterday; platelets 270. Chemistry: Sodium 136, potassium 4.5, chloride 105, ca rbon dioxide 26, BUN 23, creatinine 0.91, glucose 146, phosphorus 2.7, magnesium 1.9 from 1.9 yesterd ay. ASSESSMENT: 1. Status post ground level fall. 2. Status post open reduction internal fixation of left malleolar ankle fracture, left distal femur fracture. 3. Acute blood loss anemia. 4. Acute traumatic pain, well controlled. 5. Hypomagnesemia. PLAN: 1. Continue current oral analgesia as ordered. 2. Continue mobilizing with physical and occupational therapy. 3. Heparin 5000 mg t.i.d. should be increased to heparin 8000 mg t.i.d. based on patient's BMI. 4. Pepcid for PUD prophylaxis. 5. Case management following for discharge planning. The patient is pending insurance approval for SNF placement. ADDENDUM: This afternoon, I was notified of the patient's heart rate to the 130s. Magnesium has bee n replaced. The patient is completely asymptomatic. She denies chest pain, shortness of breath, or palpitations. She will be transferred to telemetry floor to monitor for paroxysmal atrial fibrillati on. The patient was seen and examined with Dr. Adam, who agrees with the assessment and plan.
[2017-07-12] MEDS: traMADol HCl 50 MG TAB PO SCH ×3 (00:12→12:54)
[2017-07-12] MEDS: Acetaminophen 500 MG TAB PO SCH ×2 (03:04→09:58)
[2017-07-12] MEDS ORDERED: Furosemide 20 MG/2 ML VIAL SLOW IVP SCH (06:00)
--- NOTE | 2017-07-12 06:21 | CON ---
DATE OF CONSULTATION: 07/11/2017 REASON FOR CONSULTATION: Tachycardia. HISTORY OF PRESENT ILLNESS: Ms. Phoenix is a very pleasant 72-year-old woman. She recently suff ered a fracture of her left ankle and had had repair. She has been here for several days. They were about to let her go home when they noted that her heart rate was variable, sometimes in the 120s and sometimes back to 90 or 100. Because of the variation in the heart rates, she was sent to telemetry for observation. She is not having chest pain or pressure. No shortness of breath. PAST MEDICAL HISTORY: The patient had transcutaneous aortic valve replacement done at [facility] in [place] about 2 years ago. Shortly after that, she required pacemaker insertion related to the tra nscutaneous aortic valve replacement. She has done well since then. She sees Dr. Kimb[place] and has done well. She said she does not think she has had an echocardiogram done in the last yea r or two. The pacemaker has been followed by Dr. Mensah at [facility]. MEDICATIONS AT HOME: 1. Tramadol. 2. Furosemide. 3. Carvedilol. 4. Lisinopril. ALLERGIES: PINEAPPLE. REVIEW OF SYSTEMS: Constitutional: No significant weight gain or loss. Vision: No changes. Heari ng: No changes. Pulmonary: No cough or wheezing. Gastrointestinal: No nausea, vomiting, diarrhea . Skin: No rashes. Neurologic: No unilateral weakness or numbness. Psychiatric: No unusual depr ession or anxiety. PHYSICAL EXAMINATION: GENERAL: This is a pleasant patient in no distress. VITAL SIGNS: Blood pressure 153/69, pulse has been variable at 100-125. HEENT: Eyes, sclerae are nonicteric. Mouth, mucous membranes moist. NECK: Supple. No lymphadenopathy. LUNGS: Clear. No wheezing, rales, or rhonchi. CARDIAC: Normal S1, normal S2. There is no murmur, rub, or gallop. ABDOMEN: Soft, nontender. No hepatosplenomegaly. EXTREMITIES: Warm, dry. No clubbing or cyanosis. There is 1+ edema. DIAGNOSTIC DATA: EKG revealed sinus rhythm with a left bundle branch block pattern. ASSESSMENT: 1. Recent orthopedic repair of ankle fracture as outlined above. 2. Intermittent tachycardia. 3. Previous transcutaneous aortic valve replacement. 4. Left bundle branch block. 5. Hypertension. PLAN: 1. Probably still somewhat volume overloaded. We will give her one more dose of furosemide in the m orning. 2. Echocardiogram. 3. Monitor overnight. 4. Have the [employer] people interrogate the device to see if she is having any significant tachycar joaquina; it may all be sinus tachycardia. We are going to monitor to see if there was any atrial arrhyth oralia.
[2017-07-12] MEDS ORDERED: Potassium Chloride 20 MEQ TAB PO SCH (08:00)
--- NOTE | 2017-07-12 09:02 | PRG ---
DATE OF SERVICE: 07/12/2017 Ms. Phoenix is doing better. She feels fine. No chest pain or pressure. PHYSICAL EXAMINATION: VITAL SIGNS: Blood pressure 146/67, pulse is 90. LUNGS: Clear. CARDIAC: Normal S1, normal S2, somewhat distant. ABDOMEN: Obese. EXTREMITIES: No significant edema. The pacemaker was checked it is functioning normally. She has intermittent complete heart block. Sh e has occasional SVT more than 6 seconds at a time. Otherwise, the patient is in paced rhythm or sin us rhythm. ASSESSMENT: 1. Previous transcutaneous aortic valve replacement. 2. Pacemaker working normally. 3. No significant supraventricular tachycardia. PLAN: Echocardiogram today. Can be released back to the [facility] to follow up with her primary hand slitter, Dr. Shankar.
[2017-07-12] MEDS: Sulfameth/Trimethoprim DS 800-160mg TAB PO SCH (09:56)
[2017-07-12] MEDS: Cyanocobalamin (Vitamin B-12) 1,000 MCG TAB PO SCH (09:57)
[2017-07-12] MEDS: Ferrous Sulfate 325 MG TAB PO SCH (09:58)
[2017-07-12] MEDS: Famotidine 20 MG TAB PO SCH (09:58)
[2017-07-12] MEDS: Senokot S 8.6-50 MG TAB PO SCH (09:58)
[2017-07-12] MEDS: Bisacodyl 10 MG SUPP PR SCH (09:59)
[2017-07-12] MEDS: Lisinopril 20 MG TAB PO SCH (09:59)
[2017-07-12] MEDS: Heparin 5,000 UNITS/ML VIAL SC SCH (09:59)
[2017-07-12] MEDS: Ascorbic Acid 500 mg Chewable Tablet PO SCH (09:59)
[2017-07-12] MEDS: Polyethylene Glycol 3350 17 GM Packet PO SCH (10:00)
--- NOTE | 2017-07-12 10:51 | PRG ---
DATE OF SERVICE: 07/12/2017 SUBJECTIVE: Ms. Phoenix is a 72-year-old woman who is postoperative day #7 status post open redu ction and internal fixation of her left supracondylar distal femur fracture and open reduction and in ternal fixation of left ankle. Yesterday, patient developed episodes of tachycardia in 130s. She wa s transferred to telemetry for monitoring. Pacemaker was interrogated this morning and finding of a normal functioning pacemaker. Overnight, the patient did not have any significant arrhythmias. This morning, she remains awake and alert. She reports adequate pain control. She denies any dyspne a, syncope or chest pain. She has been evaluated by Cardiology and released to be returned back to [facility] for inpatient rehabilitation. The patient is currently tolerating general diet and having nor mal bowel and urinary function. OBJECTIVE: VITAL SIGNS: This morning includes blood pressure 146/67, pulse 93, respiratory rate is 18, temperat ure is 98 degrees Fahrenheit, oxygen saturation 94% on room air. HEENT: Examination reveals normocephalic and atraumatic. HEART: Reveals regular rate and rhythm. No murmurs or gallops auscultated. LUNGS: Clear to auscultation bilaterally. Her breathing is regular and unlabored. ABDOMEN: Soft, nontender, nondistended. EXTREMITIES: Reveals 2+ radial and pedal pulses bilaterally. She has no ankle edema present. NEUROLOGIC: Examination reveals no focal deficits present. IMPRESSION AND PLAN: 1. Postop day 7, status post open reduction and internal fixation of distal femur and left ankle fra ctures. 2. Stable acute blood loss anemia. 3. Paroxysmal sinus tachycardia which is hemodynamically insignificant. The patient is otherwise he modynamically stable. She will be transferred to [facility] today for inpatient rehabilitation followin g completion of 2D echocardiogram sequestered by Cardiology. Both findings and plan discussed with t bud patient who indicates understanding of the information given. I have answered her questions.
[2017-07-12 12:37] VITALS: BP 151/68; TEMP 98.1
--- NOTE | 2017-07-12 17:38 | EKG ---
Test Reason : Blood Pressure : / mmHG Vent. Rate : 117 BPM Atrial Rate : 117 BPM P-R Int : 156 ms QRS Dur : 142 ms QT Int : 358 ms P-R-T Axes : 047 005 136 degrees QTc Int : 499 ms Sinus tachycardia Left bundle branch block Abnormal ECG When compared with ECG of 05-JUL-2017 00:12, Questionable change in QRS axis T wave inversion no longer evident in Inferior leads T wave inversion now evident in Lateral leads Confirmed by DR. Lynda CHÁVEZ ([id number]) on 07/12/2017 5:37:56 PM Referred By: JAQUI Confirmed By:DR. Lynda CHÁVEZ
--- NOTE | 2017-07-12 17:40 | EKG ---
Test Reason : Blood Pressure : / mmHG Vent. Rate : 095 BPM Atrial Rate : 095 BPM P-R Int : 160 ms QRS Dur : 150 ms QT Int : 394 ms P-R-T Axes : 062 015 129 degrees QTc Int : 495 ms Normal sinus rhythm Left bundle branch block Abnormal ECG When compared with ECG of 10-JUL-2017 18:27, (Unconfirmed) No significant change was found Confirmed by DR. Lynda CHÁVEZ ([id number]) on 07/12/2017 5:40:06 PM Referred By: KRYSTIN Confirmed By:DR. Lynda CHÁVEZ
--- NOTE | 2017-07-13 15:43 | DIS ---
DATE OF ADMISSION: 07/05/2017 DATE OF DISCHARGE: 07/12/2017 ADMITTING PHYSICIAN: Dr. Adam. DISCHARGING PHYSICIAN: Dr. Adam. CONSULTATION: Dr. Lazaro, Orthopedics. REASON FOR HOSPITALIZATION: Ground level fall with distal femur fracture. HOSPITAL DIAGNOSES: 1. Closed left distal femur fracture. 2. Closed left bimalleolar fracture. PROCEDURES: 1. ORIF left supracondylar intercondylar distal femur fracture. 2. ORIF left ankle. DATE OF SURGERY: 07/05/2017 SURGEON: Dr. Lazaro. DISCHARGE CONDITION: Good. DISCHARGE DISPOSITION: Discharged to Long-Term Facility. DISCHARGE MEDICATIONS: Acetaminophen 1000 mg every 6 hours, vitamin C 500 mg twice daily, Dulcolax 1 0 mg daily as needed, Pepcid 20 mg oral daily, heparin 8000 units subcutaneous 3 times daily, DuoNeb 3 mL nebulizer q.8 hours, Zestril 20 mg oral daily, MiraLax 17 grams oral daily, Senokot-S 2 tabs ora l daily, tramadol 100 mg oral q.6 hours. The patient may also continue all home medications, which i nclude AZO Cranberry tablets, vitamin D3, biotin, furosemide 20 mg oral every morning, iron 325 mg or al.
== END 2017-07-12 15:04 | DRG 481 ==
LOC: ERS 23:52 → SURG A 07-05 01:45 → 2NO 07-11 17:56
PROVIDERS: ADMIT Specialist; ATTEND Specialist
PROC: 0QSC04Z Reposition Left Lower Femur with Internal Fixation Device, Open Approach (ICD-10-PCS; principal; 2017-07-05)
PROC: 0QSK04Z Reposition Left Fibula with Internal Fixation Device, Open Approach (ICD-10-PCS; 2017-07-05)
PROC: 30233N1 Transfusion of Nonautologous Red Blood Cells into Peripheral Vein, Percutaneous Approach (ICD-10-PCS; 2017-07-10)
DX: S72.462A Displaced supracondylar fracture with intracondylar extension of lower end of left femur, initial encounter for closed fracture (principal); D62 Acute posthemorrhagic anemia; N17.9 Acute kidney failure, unspecified; Z68.43 Body mass index [BMI] 50.0-59.9, adult; D64.9 Anemia, unspecified; I44.7 Left bundle-branch block, unspecified; E66.01 Morbid (severe) obesity due to excess calories; N39.0 Urinary tract infection, site not specified; E83.42 Hypomagnesemia; I10 Essential (primary) hypertension; S82.402A Unspecified fracture of shaft of left fibula, initial encounter for closed fracture; I25.10 Atherosclerotic heart disease of native coronary artery without angina pectoris; S82.842A Displaced bimalleolar fracture of left lower leg, initial encounter for closed fracture; R00.0 Tachycardia, unspecified; Z95.2 Presence of prosthetic heart valve; Z95.0 Presence of cardiac pacemaker; R73.9 Hyperglycemia, unspecified; S82.852A Displaced trimalleolar fracture of left lower leg, initial encounter for closed fracture
CPT/HCPCS: 36415; 36416; 36430; 51702; 71045; 76001; 80048; 81003; 81015; 82553; 83735; 84100; 84484; 85025; 86850; 86900; 86901; 87077; 87086; 87186; 93005; 93010; 93306; 94640; 96374; A4216; C1713; G0390; G8978-GP-CL; G8978-GP-CN; G8979-GP-CJ; G8979-GP-CL; G8987-GO-CL; G8988-GO-CJ; J0131; J0690; J1644; J1885; J1940; J1956; J2001; J2270; J2405; J2704; J3010; J3475; J7620; P9016; P9047

== ENCOUNTER 2017-07-20 08:04 | Inpatient (IN) | payer MEDICARE ==
[2017-07-20 08:59] LABS: Mean Corpuscular HGB CONC 30.3 g/dL (32.0-36.0); Mean Corpuscular Hemoglobin 29.3 pg (27.0-31.0); Mean Corpuscular Volume 96.8 fl (81.0-99.0); Mean Platelet Volume 6.4 fL (7.4-10.4); Platelet Count 570 thou/uL (130-400); White Blood Cell (WBC) Count 34.5 thou/uL (4.8-10.8)
[2017-07-20] MEDS ORDERED: Clindamycin/D5W 900 mg/50 ml Premix Bag ONE (09:02)
[2017-07-20] MEDS ORDERED: Acetaminophen 500 MG TAB ONE (09:11)
--- NOTE | 2017-07-20 09:12 | RAD ---
PORTABLE CHEST 1 VIEW: Date: 07/20/17 Time: 0851 hours HISTORY: Fever. FINDINGS: Comparison made with exam of 07/10/17. The heart size is normal. Left-sided pacemaker device remains in place. No focal areas of consolidati on, pneumothoraces, alan pulmonary edema, or pleural effusions are seen. IMPRESSION: No acute process. POS: OFF
[2017-07-20] MEDS ORDERED: Piperacillin/Tazobactam 4.5 GM in Sodium Chloride 0.9% 100 ML IVPB SCH (09:15)
[2017-07-20 09:18] LABS: ALT (SGPT) 26 U/L (8-55); AST (SGOT) 19 U/L (5-34); Albumin 3.1 g/dL (3.4-4.8); Alkaline Phosphatase 125 U/L (40-150); Anion Gap 13 mmol/L (10-20); BUN (Urea Nitrogen) 15 mg/dL (9.8-20.1); Bilirubin, Total 0.8 mg/dL (0.2-1.2); Calc. Creatinine Clearance 0 mL/min (70-130); Carbon Dioxide 25 mmol/L (23-31); Chloride 100 mmol/L (98-107); Estimated GFR-MDRD 58; Globulin 3.3 g/dL (2.4-3.5); Glucose 147 mg/dL (83-110); Potassium 4.7 mmol/L (3.5-5.1); Protein, Total 6.4 g/dL (6.0-8.3); Sodium 133 mmol/L (136-145)
[2017-07-20 09:21] LABS: Band 4 % (5-11); Lymphocytes 4 % (21-51); MDiff Complete? YES; Monocytes 5 % (0-10); Neutrophil 86 % (42-75); PLT Morphology Comment Appears Increased; Polychromasia SLIGHT = 2-3 cells (100X) (0-2/hpf)
[2017-07-20 09:41] LABS: Bilirubin Negative (Negative); Blood, Urine Negative (Negative); Clarity CLEAR (Clear); Glucose, Urine (Dipstick) Negative (Negative); Leukocyte Negative (Negative); Nitrite Negative (Negative); Protein, Urine (Dipstick) Negative (Neg-Trace); Specific Gravity, Urine 1.016 (1.002-1.036); Urobilinogen 0.2 mg/dL (0.2-1.0)
--- NOTE | 2017-07-20 11:57 | CON ---
DATE OF CONSULTATION: 07/20/2017 CONSULTING PHYSICIAN: Vipin Delatorre M.D. HISTORY OF PRESENT ILLNESS: This is a 72-year-old white female who presented to the emergency depart ment today for complaints of fever and chills. She is status post left femur ORIF on 07/09/2017. Rivera padilla was discharged to [facility]. She states she has been at this facility since discha rge. She notes drainage from the left lateral wound since her discharge. She reports a fever starti ng last night around 8:00 p.m. with 102 fever. She also reports chills and dizziness starting last n ight. She denies any urinary symptoms, sore throat, flu-like symptoms or cough. She was initially s een and evaluated today at the bedside in the emergency department. ALLERGIES: PINEAPPLE. CURRENT MEDICATIONS: Biotin, carvedilol, vitamin B12, ergocalciferol, ferrous gluconate, Lasix, dax nopril, Nitrostat, MiraLax, tramadol, and vitamin D. PAST MEDICAL HISTORY: Significant for hyperlipidemia, heart murmur, polyarticular osteoarthritis, le g pain, obesity, tricuspid valve regurgitation, thyroid nodules, hypertension, hypertriglyceridemia, fibrocystic breast disease, valvular disease, coronary artery disease, heart block and aortic stenosi s. PAST SURGICAL HISTORY: Includes tonsils, adenoids aortic valve replacement, cardiac pacemaker placem ent and most recently ORIF to the left femur and left ankle. SOCIAL HISTORY: Patient resides in [place]. No alcohol or nicotine or drug use. REVIEW OF SYSTEMS: The patient denies any chest pain or shortness of breath. She denies any flu-lik e symptoms. She is very pleasant and cooperative with exam today. Her main complaints today are rel ated to her left lower extremity. PHYSICAL EXAMINATION: VITAL SIGNS: Blood pressure 105/43, pulse of 90, respiratory rate of 20, temperature of 99.6, and pa in level of 2 with oxygen saturation of 97 on 2 liters of oxygen. GENERAL: This is a well-nourished female. Daughter at bedside. She is awake, alert, and oriented x 3. HEENT: Head is normocephalic, atraumatic. NECK: Supple. EXTREMITIES: Left lower extremity shows surgical rere in the medial and lateral aspect of the lef t ankle. There are no signs concerning for wound infection, no surrounding erythema, no wound dehisc ence and no wound drainage. With regards to the left thigh, lateral surgical wound. There are stapl es intact. There does appear to be some surrounding erythema, more concentrated at the proximal aspe ct with some drainage visible on the bandage. Family states this was placed earlier today. No palpa ble fluid collection in the thigh. Distal neurovascular status is intact in the left lower extremity . LABORATORY FINDINGS: Include white blood cell count of 34.5, hemoglobin of 10.0, hematocrit of 33.0 and platelets of 570. Urinalysis is negative. Chest x-ray is negative for acute process. ASSESSMENT: Postoperative leukocytosis with fever and concerning infection to the left femur, status post open reduction and internal fixation. The patient will be taken directly to the operating room for incision and drainage of the left femur with Dr. Delatorre. PLAN: I have spoken with the patient and family. The patient was examined at bedside with Dr. Marlin wilkins as well. We will get her set up for this I and D today. We have discussed risks and benefits of s sujata and the patient is amenable to go forward with surgery as is the family. She will be admitted to the Medicine Service for continued IV antibiotic therapy.
[2017-07-20] MEDS ORDERED: Fentanyl 250 MCG/5 ML VIAL ONE (12:01)
--- NOTE | 2017-07-20 12:16 | HP ---
PRIMARY CARE PHYSICIAN: [facility] Call Admission. REASON FOR ADMISSION: Sepsis, post-surgical site infection. HISTORY OF PRESENT ILLNESS: A 72-year-old female who has underlying morbid obesity. She had distal left femur fracture and left bimalleolar fracture, which was diagnosed on 07/05/2017 that happened after mechanical fall. At that time, the patient was admitted under Trauma Service. The patient underwent surgery on 07/09/[address] Lazaro. The patient required open reduction and internal fixation of left supracondylar and intercondylar distal femur fracture as well as open reduction internal fixation of left ankle. The patient was discharged to inpatient rehab facility on 07/13/2017. On 07/18/2017, the patient had echocardiography which showed LVH, bioprosthetic aortic valve, and pulmonary hypertension. At rehabilitation, the patient was having on and off fever since yesterday. She was feeling chills, rigors, and that is why she was sent to emergency room for evaluation. Routine blood test in the emergency room showed sepsis. She was tachycardic with pulse 121, temperature 101.5 and WBC count was 34,000 with bandemia. The patient denies any UTI symptoms. She denies any cough, shortness of breath. She denies any flu-like illness. She denies any diarrhea. She denies any nausea, vomiting, or chest pain. The patient noticed that at rehab they were returning from one position to other, and she started noticing drainage at surgical site and surgical site was bothering her as well. At this point, the patient is being admitted to telemetry floor. REVIEW OF SYSTEMS: Please see my HPI for pertinent positive and negative. All other review of systems reviewed and negative except as mentioned in the HPI. Constitutional: Weight loss or gain, ability to conduct usual activities. Skin: Rash, itching. Eyes: Double vision, pain. ENT/Mouth: Nose bleeding, neck stiffness, pain, tenderness. Cardiovascular: Palpitations, dyspnea on exertion, orthopnea. Respiratory: Shortness of breath, wheezing, cough, hemoptysis, fever or night sweats. Gastrointestinal: Poor appetite, abdominal pain, heartburn, nausea, vomiting, constipation, or diarrhea. Genitourinary: Urgency, frequency, dysuria, nocturia. Musculoskeletal: Pain, swelling. Neurologic/Psychiatric: Anxiety, depression. Allergy/Immunologic: Skin rash, bleeding tendency. ALLERGIES: No known drug allergy, but patient is allergic to PINEAPPLE. CURRENT HOME MEDICATIONS: Following our scheduled medications: Vitamin C 500 mg twice daily, Pepcid 20 mg twice daily, vitamin D3 5000 units 3 times daily, Biotin 2500 mcg daily, ferrous sulfate 325 mg twice daily, aspirin 81 mg daily, Folic acid with vitamin B12 one tablet daily, Coreg 6.25 mg twice daily, lisinopril 10 mg daily, MiraLax 17 grams p.o. daily, DuoNeb as needed basis. Following are p.r.n. medications: Heparin 5000 units subcu three times daily, Dulcolax 10 mg per rectally p.r.n., nitroglycerin p.r.n., tramadol 200 mg q.6 hourly p.r.n., Tylenol p.r.n. basis. PAST MEDICAL HISTORY: Hypertension, morbid obesity, coronary artery disease, dyslipidemia, polyarticular arthritis, pulmonary hypertension. PAST SURGICAL HISTORY: Transcutaneous aortic valve replacement, pacemaker placement, tonsillectomy, left supracondylar and intercondylar distal femur fracture required open reduction internal fixation, open reduction internal fixation for left trimalleolar ankle fracture. PAST PSYCHIATRIC HISTORY: Reviewed and negative. SOCIAL HISTORY: The patient currently lives at rehabilitation. She does not have any tobacco, alcohol or illicit drug abuse. FAMILY HISTORY: Positive for coronary artery disease. EMERGENCY ROOM COURSE: The patient has received IV fluid, vancomycin, Zosyn, and clindamycin, Tylenol and IV fluid. PHYSICAL EXAMINATION: VITAL SIGNS: On arrival, blood pressure 138/62, pulse 121, respiratory rate 24 , temperature 101.5, saturation 94% on room air. Currently, blood pressure 105/ 43, weight 165 pounds. GENERAL: The patient is currently alert, awake, no acute distress. HEENT: Normocephalic, atraumatic. EYES: Pupils round, reactive to light. Extraocular muscle intact. ENT: Oropharynx within normal limits. Moist mucous membranes. No oral lesion , no pharyngeal erythema, no exudate. NECK: Supple, no JVD, no thyromegaly, no carotid bruit, no jugular venous distention. LUNGS: Clear to auscultation without any rhonchi or rales. CARDIAC: S1 and S2 regular without any murmur. ABDOMEN: Morbid obesity limiting examination. Bowel sounds present, nontender , nondistended. No organomegaly, no mass, no suprapubic tenderness. BACK: Unremarkable, no CVA tenderness. EXTREMITIES: Upper extremity: Passive movements of all joints are normal. Lower extremities: Left lower extremity has surgical site which is slightly erythematous and tender with rere in place both at ankle as well as femur level. SKIN: No skin rash other than mild erythema surrounding the surgical incision site. NEUROLOGIC: Nonfocal examination. The patient moves all 4 limbs. Plantar bilateral flexor. PSYCHIATRIC: Normal affect. SIGNIFICANT LABORATORY DATA: EKG showing sinus tachycardia LBBB. No change from previous. Recent echocardiography showed bioprosthetic aortic valve in place for pulmonary hypertension and LVH. Chest x-ray based on my review, no acute cardiopulmonary process. CBC: WBC is 34.5, hemoglobin 10.0, platelet 570 with bandemia. BMP: Sodium 133, potassium 4.7, chloride 100, carbon dioxide 25, anion gap 13, BUN 15, creatinine 0.95, glucose 147, calcium 9.0. LFT: AST 19, ALT 26, alkaline phosphatase 125, albumin 3.1. Lactic acid 1.3. Urinalysis normal. ASSESSMENT AND PLAN: 1. Sepsis, likely due to soft tissue infection after surgical site infection. 2. Surgical site infection. 3. Morbid obesity. 4. History of aortic stenosis, status post transcutaneous aortic valve replacement with bioprosthetic valve. 5. History of hypertension, but currently low blood pressure. 6. Sinus tachycardia due to sepsis. 7. Coronary artery disease. 8. Recent distal femur fracture and trimalleolar ankle fracture. 9. Anemia, normocytic normochromic. PLAN: Full admission to telemetry floor. Resume selected home medication. Hold blood pressure medication because of relatively low blood pressure. Continue IV fluid. Consult orthopedic physician for assessment. Continue broad -spectrum antibiotic therapy with vancomycin, Zosyn, and levofloxacin. If diarrhea, then check stool for C. diff, send urine culture. Monitor on telemetry floor for any hemodynamic compromise. DVT prophylaxis is with heparin 5000 units subcu 3 times daily. Gastrointestinal prophylaxis with Pepcid 20 mg b.i.d. CODE STATUS: The patient is DNR that was discussed with the patient and patient 's daughter is surrogate decision maker. Disposition and plan based on clinical course. Plan of care discussed with the patient's family member at bedside in the emergency room. KALANI
[2017-07-20] MEDS ORDERED: Bisacodyl 5 MG TAB PO PRN (13:45)
[2017-07-20] MEDS ORDERED: HYDROcodone/Acetaminophen 10/325 mg Tablet PO PRN ×2 (13:45)
[2017-07-20] MEDS ORDERED: Sodium Chloride 0.9% 1,000 ML IV SCH (13:45)
[2017-07-20] MEDS ORDERED: Zolpidem Tartrate 5 MG TAB PO PRN ×2 (13:45→17:24)
[2017-07-20] MEDS ORDERED: Ondansetron ODT 4 MG TAB PO PRN ×2 (13:45→17:24)
--- NOTE | 2017-07-20 14:07 | OP ---
PREOPERATIVE DIAGNOSIS: Infected left femur fracture. POSTOPERATIVE DIAGNOSIS: Infected left femur fracture. PROCEDURES: Irrigation and debridement of left femur. SURGEON: Vipin Delatorre M.D. BIOMETRIC SCREENER: Antonio Wetzel PA-C. BLOOD LOSS: 100. SPECIMEN: Cultures of tissue and fluid. DRAINS: None. COMPLICATIONS: None. DESCRIPTION OF PROCEDURE: The patient was taken to the operating room where general anesthesia was i nduced. Left leg was prepped and draped in the usual sterile fashion. I opened up the rere. Dis section was carried down to the fascia. I did my best to remove all the foreign material that was vi sible, cut all the way down to the bone and the plate. The hardware was stable. There was just some brown liquid with a very overly content to it. I irrigated this with a total of 1000 mL of pulsatil e lavage irrigation. Wound was packed open. Sterile dressing was applied. Plan is for postoperativ e application of a wound VAC tomorrow after the bleeding stops.
[2017-07-20] MEDS ORDERED: Senokot 8.6 MG TAB PO PRN (17:24)
[2017-07-20] MEDS ORDERED: Eucerin (Mineral Oil/Petrolatum,White) 30 gm Jar TOP PRN (17:24)
[2017-07-20] MEDS ORDERED: Sodium Chloride 0.65% Nasal 44 ML BOT EA NARE PRN (17:24)
[2017-07-20] MEDS ORDERED: Milk Of Magnesia 30 ML UDCUP PO PRN (17:24)
[2017-07-20] MEDS ORDERED: Artificial Tear Sol 15 ML BOT EA EYE PRN (17:24)
[2017-07-20] MEDS ORDERED: Mag-Al 1200 mg/1200 mg/30 ML UDCUP PO PRN (17:24)
[2017-07-20] MEDS ORDERED: Loperamide HCl 2 MG CAP PO PRN (17:24)
[2017-07-20] MEDS ORDERED: Loratadine 10 MG TAB PO PRN (17:24)
[2017-07-20] MEDS ORDERED: Ondansetron HCl/PF 4 MG/2 ML Vial IVP PRN (17:24)
[2017-07-20] MEDS ORDERED: Chloraseptic Spray 180 ml Bottle PO PRN (17:24)
[2017-07-20] MEDS ORDERED: HYDROcodone/Acetaminophen 5/325 mg Tablet PO PRN (17:24)
[2017-07-20] MEDS ORDERED: Acetaminophen 325 MG TAB PO PRN (17:24)
[2017-07-20] MEDS ORDERED: hydrALAZINE 20 MG/ML VIAL SLOW IVP PRN (17:24)
[2017-07-20] MEDS ORDERED: Diabetic Tussin 200 MG/10 ML UDCUP PO PRN (17:24)
[2017-07-20] MEDS ORDERED: Heparin 5,000 UNITS/ML VIAL SC SCH (18:00)
[2017-07-20] MEDS ORDERED: ePHEDrine/0.9% NaCl/PF SYRINGE 50 mg/10 ml ONE (18:12)
[2017-07-20] MEDS ORDERED: Glycopyrrolate 0.2 MG/ML 5 ML SYRINGE ONE (18:12)
[2017-07-20] MEDS ORDERED: Succinylcholine Chloride 20 MG/ML 10 ml SYRINGE FS ONE (18:12)
[2017-07-20] MEDS ORDERED: PROPOFOL 200 MG/20 ML VIAL ONE (18:12)
[2017-07-20] MEDS ORDERED: PHENYLEPHRINE-NS 100 MCG/ML 10 ML SYRINGE ONE (18:12)
[2017-07-20] MEDS ORDERED: Lidocaine 1% PF 5 ML VIAL ONE (18:12)
[2017-07-20] MEDS: Sodium Chloride 0.9% 1,000 ML IV SCH (18:26)
[2017-07-20 18:27] VITALS: BMI 58.7
[2017-07-20] MEDS: traMADol HCl 50 MG TAB PO SCH (18:48)
[2017-07-20] MEDS: Piperacillin/Tazobactam 4.5 GM in Sodium Chloride 0.9% 100 ML IVPB SCH (18:48)
--- NOTE | 2017-07-20 19:47 | ULT ---
BILATERAL LOWER EXTREMITY VENOUS DOPPLER ULTRASOUND: 07/20/17 COMPARISON: None. HISTORY: Left lower extremity surgery today, evaluate for deep venous thrombosis. TECHNIQUE: Multiplanar garcia scale sonographic imaging of the venous structures of bilateral lower extremities ob tained with color flow and spectral analysis. FINDINGS: Of note, it is difficult to visualize the venous structures of bilateral lower extremities secondary to body habitus. On garcia scale imaging, the left common femoral vein, greater saphenous vein, profund a femoral vein, femoral vein, and popliteal vein are faintly seen. Doppler imaging suggests patency o f left popliteal vein, femoral vein, profunda femoral vein, common femoral vein, greater saphenous ve in and posterior tibial vein. Similarly it is difficult to visualize the venous structures of the rig ht lower extremity on color doppler imaging suggests patency of right common femoral vein, femoral i n, popliteal vein and posterior tibial vein. Augmentation could not be performed secondary to body habitus. IMPRESSION: Limited venous doppler ultrasound of bilateral lower extremities demonstrate no evidence for DVT on e ither side. POS: CLAIR
[2017-07-20] MEDS ORDERED: Vancomycin HCl 1.25 GM in Sodium Chloride 0.9% 250 ML 250 ML IVPB SCH (21:00)
[2017-07-20] MEDS ORDERED: Famotidine/PF 20 mg/2ml Vial SLOW IVP SCH (21:00)
[2017-07-20] MEDS: Ferrous Sulfate 325 MG TAB PO SCH (21:28)
[2017-07-20] MEDS: Famotidine 20 MG TAB PO SCH (21:28)
[2017-07-20] MEDS: Docusate 100 MG CAP PO SCH (21:28)
[2017-07-20] MEDS: Vancomycin HCl 1.75 GM in Sodium Chloride 0.9% 500 ML IVPB SCH (21:28)
[2017-07-20] MEDS: Senokot S 8.6-50 MG TAB PO SCH (21:28)
[2017-07-20] MEDS: Ascorbic Acid 500 mg Chewable Tablet PO SCH (21:28)
[2017-07-21] MEDS: traMADol HCl 50 MG TAB PO SCH ×4 (00:41→18:30)
[2017-07-21] MEDS: Piperacillin/Tazobactam 4.5 GM in Sodium Chloride 0.9% 100 ML IVPB SCH ×4 (00:41→18:30)
[2017-07-21] MEDS: Sodium Chloride 0.9% 1,000 ML IV SCH ×3 (04:58→17:08)
[2017-07-21 05:55] LABS: ALT (SGPT) 22 U/L (8-55); AST (SGOT) 27 U/L (5-34); Albumin 2.5 g/dL (3.4-4.8); Alkaline Phosphatase 103 U/L (40-150); Anion Gap 14 mmol/L (10-20); BUN (Urea Nitrogen) 17 mg/dL (9.8-20.1); Bilirubin, Total 0.7 mg/dL (0.2-1.2); Calc. Creatinine Clearance 127 mL/min (70-130); Calcium 7.8 mg/dL (7.8-10.44); Carbon Dioxide 20 mmol/L (23-31); Chloride 106 mmol/L (98-107); Estimated GFR-MDRD 53; Glucose 132 mg/dL (83-110); Potassium 4.8 mmol/L (3.5-5.1); Protein, Total 5.5 g/dL (6.0-8.3); Sodium 135 mmol/L (136-145)
[2017-07-21 06:07] LABS: #Eosinphils 0.1 thou/uL (0.0-0.7); #Lymphocytes 0.8 thou/uL (1.20-3.40); #Monocytes 2.1 thou/uL (0.11-0.59); #Neutrophils 13.6 thou/uL (1.40-6.50); %Eosinophils 0.4 % (0.0-10.0); %Monocytes 12.8 % (0.0-10.0); %Neutrophils 81.9 % (42.0-75.0); Hemoglobin 7.7 g/dL (12.0-16.0); Mean Corpuscular HGB CONC 30.4 g/dL (32.0-36.0); Mean Corpuscular Volume 95.4 fl (81.0-99.0); Mean Platelet Volume 6.5 fL (7.4-10.4); Platelet Count 450 thou/uL (130-400); RBC Distribution Width 15.7 % (11.5-14.5); Red Blood Cell (RBC) Count 2.67 mill/uL (4.20-5.40); White Blood Cell (WBC) Count 16.6 thou/uL (4.8-10.8)
[2017-07-21] MEDS: Ascorbic Acid 500 mg Chewable Tablet PO SCH ×2 (08:52→21:09)
[2017-07-21] MEDS: Docusate 100 MG CAP PO SCH ×2 (08:53→21:10)
[2017-07-21] MEDS: Heparin 5,000 UNITS/ML VIAL SC SCH ×3 (08:53→21:10)
[2017-07-21] MEDS: Famotidine 20 MG TAB PO SCH ×2 (08:53→21:10)
[2017-07-21] MEDS: Ferrous Sulfate 325 MG TAB PO SCH ×2 (08:53→21:10)
[2017-07-21] MEDS: Senokot S 8.6-50 MG TAB PO SCH ×2 (08:53→21:10)
[2017-07-21] MEDS: Saccharomyces boulardii 250 MG CAP PO SCH (08:53)
[2017-07-21] MEDS: Polyethylene Glycol 3350 17 GM Packet PO SCH (08:53)
[2017-07-21] MEDS: Vancomycin HCl 1.75 GM in Sodium Chloride 0.9% 500 ML IVPB SCH (08:58)
[2017-07-21] MEDS ORDERED: Famotidine 40 MG/4 ML VIAL IV SCH (09:00)
[2017-07-21] MEDS: Cyanocobalamin (Vitamin B-12) 1,000 MCG TAB PO SCH (09:01)
[2017-07-21] MEDS ORDERED: Sodium Chloride 0.9% 500 ML IV SCH (09:45)
--- NOTE | 2017-07-21 19:55 | PDOC.PN ---
- Subjective Encounter Start Date: 07/21/17 Encounter Start Time: 10:00 Patient seen and examined. No new complaints. No overnight events. Discomfort over the surgical site - Objective Resuscitation Status: Resuscitation Status FULL:Full Resuscitation MAR Reviewed: Yes Vital Signs & Weight: Vital Signs (12 hours) Temp Pulse Resp BP Pulse Ox 07/21/17 15:52 98.9 F 95 20 98/40 L 92 L 07/21/17 11:35 98.4 F 94 20 100/43 L 93 L 07/21/17 08:51 98.8 F 95 20 92 L 07/21/17 08:47 98.8 F 95 20 79/35 L 92 L Weight Admit Weight 363 lb 12.203 oz Weight 363 lb 12.203 oz I&O: 07/20/17 07/21/17 07/22/17 06:59 06:59 06:59 Intake Total 580 900 Output Total 700 350 Balance -120 550 Result Diagrams: 07/22/17 04:47 07/22/17 04:47 Radiology Reviewed by me: No (Venous doppler - neg) EKG Reviewed by me: Yes (Tele SR) Phys Exam - Physical Examination Constitutional: NAD Neck: no JVD Respiratory: no wheezing, no rales, no rhonchi Dec AE at bases Cardiovascular: RRR, no rub no heaves/pulsations Gastrointestinal: soft, non-tender, no distention, positive bowel sounds Musculoskeletal: edema present wound vac Neurological: non-focal, normal sensation, moves all 4 limbs Psychiatric: normal affect, A&O x 3 Dx/Plan - Plan continue antibiotics, PT/OT, DVT proph w/heparin, DVT proph w/SCDs IMPRESSION: 1. Sepsis prob due to surgical site infection. s/p I&D 2. Morbid obesity BMI 58 3. HTN 4. CKD 3 5. Anemia prob due to hemodilution 6. Other issues per previous notes PLAN: * Increase IVF to 125 ml/hr after 500 ml bolus * Cont Atbx * Consult ID in AM * Pain control * Cont wound care * DVT prophylaxis * Venous doppler negative * Close monitoring Review of Systems - Review of Systems Respiratory: negative: Cough, Dry, Shortness of Breath, Hemoptysis, SOB with Excertion, Pleuritic Pain, Sputum, Wheezing Cardiovascular: negative: chest pain, palpitations, orthopnea, paroxysmal nocturnal dyspnea, edema, light headedness - Medications/Allergies Allergies/Adverse Reactions: Allergies Allergy/AdvReac Type Severity Reaction Status Date / Time pineapple [Pineapple] Allergy Verified 07/05/17 02:21 Medications: Current Medications Acetaminophen (Tylenol) 650 mg PO Q4H PRN PRN Reason: Headache/Fever or Pain Hydrocodone Bitart/Acetaminophen ([place] 10/325) 1 tab PO Q4H PRN PRN Reason: Moderate Pain (4-6) Hydrocodone Bitart/Acetaminophen ([place] 10/325) 2 tab PO Q4H PRN PRN Reason: Severe Pain (7-10) Hydrocodone Bitart/Acetaminophen ([place] 5/325) 1 tab PO Q4H PRN PRN Reason: Moderate Pain (4-6) Al Hydroxide/Mg Hydroxide (Maalox) 30 ml PO Q6H PRN PRN Reason: Heartburn or Indigestion Artificial Tears (Tears Renewed 15ml Bottle) 0 drop EA EYE PRN PRN PRN Reason: Dry Eyes Ascorbic Acid (Vitamin C) 500 mg PO BID [facility] Last Admin: 07/21/17 08:52 Dose: 500 mg Aspirin (Aspirin Chewable) 81 mg PO DAILY [facility] Last Admin: 07/21/17 08:52 Dose: 81 mg Bisacodyl (Dulcolax) 10 mg PO DAILYPRN PRN PRN Reason: Constipation Cholecalciferol (Vitamin D3) 5,000 units PO DAILY [facility] Last Admin: 07/21/17 08:52 Dose: 5,000 units Cyanocobalamin (Vitamin B-12) 2,500 mcg PO QAM [facility] Last Admin: 07/21/17 09:01 Dose: 2,500 mcg Docusate Sodium (Colace) 100 mg PO BID [facility] Last Admin: 07/21/17 08:53 Dose: 100 mg Famotidine (Pepcid) 20 mg PO BID [facility] Last Admin: 07/21/17 08:53 Dose: 20 mg Ferrous Sulfate (Feosol) 325 mg PO BID [facility] Last Admin: 07/21/17 08:53 Dose: 325 mg Guaifenesin (Robitussin Sf) 200 mg PO Q4H PRN PRN Reason: Cough Heparin Sodium (Porcine) (Heparin) 5,000 units SC TID [facility] Last Admin: 07/21/17 15:49 Dose: 5,000 units Hydralazine HCl (Apresoline) 10 mg SLOW IVP Q4H PRN PRN Reason: Systolic BP > 180 Levofloxacin 750 mg/ Device 150 mls @ 100 mls/hr IVPB Q24HR@1800 [facility] Last Admin: 07/21/17 17:08 Dose: 150 mls Piperacillin Sod/Tazobactam (Sod 4.5 gm/ Sodium Chloride) 100 mls @ 200 mls/hr IVPB Q6HR [facility] Last Admin: 07/21/17 18:30 Dose: 100 mls Sodium Chloride (Normal Saline 0.9%) 1,000 mls @ 125 mls/hr IV .Q8H [facility] Last Admin: 07/21/17 17:08 Dose: 1,000 mls Loperamide HCl (Imodium) 2 mg PO PRN PRN PRN Reason: Diarrhea/Loose Stools Loratadine (Claritin) 10 mg PO DAILYPRN PRN PRN Reason: Sinus Symptoms Magnesium Hydroxide (Milk Of Magnesium) 30 ml PO DAILYPRN PRN PRN Reason: Constipation Mineral Oil/White Petrolatum (Eucerin Cream) 0 gm TOP BIDPRN PRN PRN Reason: Dry Skin Miscellaneous Medication (Pharmacy To Dose) 1 each IVPB PRN PRN PRN Reason: Pharmacy to dose Ondansetron HCl (Zofran Odt) 4 mg PO Q6H PRN PRN Reason: Nausea/Vomiting Ondansetron HCl (Zofran) 4 mg IVP Q6H PRN PRN Reason: Nausea/Vomiting Phenol (Chloraseptic [place] 180 Ml Bot) 0 ml PO PRN PRN PRN Reason: Sore Throat Polyethylene Glycol (Miralax) 17 gm PO DAILY [facility] Last Admin: 07/21/17 08:53 Dose: 17 gm Saccharomyces Boulardii (Florastor) 250 mg PO DAILY [facility] Last Admin: 07/21/17 08:53 Dose: 250 mg Senna (Senokot) 2 tab PO HSPRN PRN PRN Reason: Constipation Senna/Docusate Sodium (Senokot S) 2 tab PO BID [facility] Last Admin: 07/21/17 08:53 Dose: 2 tab Sodium Chloride ([place] Nasal [place] 0.65%) 0 ml EA NARE QIDPRN PRN PRN Reason: Nasal Congestion Tramadol HCl (Ultram) 100 mg PO Q6HR [facility] Last Admin: 07/21/17 18:30 Dose: 100 mg Zolpidem Tartrate (Ambien) 5 mg PO HSPRN PRN PRN Reason: Insomnia
[2017-07-22] MEDS: Piperacillin/Tazobactam 4.5 GM in Sodium Chloride 0.9% 100 ML IVPB SCH ×2 (00:35→05:22)
[2017-07-22] MEDS: traMADol HCl 50 MG TAB PO SCH ×4 (00:37→17:54)
[2017-07-22] MEDS: Sodium Chloride 0.9% 1,000 ML IV SCH ×3 (03:56→17:54)
[2017-07-22 05:43] LABS: ALT (SGPT) 18 U/L (8-55); AST (SGOT) 16 U/L (5-34); Albumin 2.5 g/dL (3.4-4.8); Alkaline Phosphatase 103 U/L (40-150); Anion Gap 12 mmol/L (10-20); BUN (Urea Nitrogen) 27 mg/dL (9.8-20.1); Bilirubin, Total 0.5 mg/dL (0.2-1.2); Calc. Creatinine Clearance 107 mL/min (70-130); Calcium 7.9 mg/dL (7.8-10.44); Carbon Dioxide 20 mmol/L (23-31); Chloride 108 mmol/L (98-107); Estimated GFR-MDRD 43; Globulin 2.9 g/dL (2.4-3.5); Glucose 125 mg/dL (83-110); Magnesium 1.8 mg/dL (1.6-2.6); Potassium 4.6 mmol/L (3.5-5.1); Protein, Total 5.4 g/dL (6.0-8.3); Sodium 135 mmol/L (136-145)
[2017-07-22 05:50] LABS: Band 1 % (5-11); Eosinophils 4 % (0-10); Hemoglobin 7.6 g/dL (12.0-16.0); Lymphocytes 6 % (21-51); MDiff Complete? YES; Mean Corpuscular HGB CONC 30.4 g/dL (32.0-36.0); Mean Corpuscular Hemoglobin 29.9 pg (27.0-31.0); Mean Corpuscular Volume 98.5 fl (81.0-99.0); Mean Platelet Volume 6.4 fL (7.4-10.4); Monocytes 12 % (0-10); Neutrophil 77 % (42-75); Platelet Count 420 thou/uL (130-400); RBC Distribution Width 15.3 % (11.5-14.5); Red Blood Cell (RBC) Count 2.55 mill/uL (4.20-5.40); White Blood Cell (WBC) Count 12.1 thou/uL (4.8-10.8)
[2017-07-22] MEDS: Ascorbic Acid 500 mg Chewable Tablet PO SCH ×2 (09:03→22:03)
[2017-07-22] MEDS: Cyanocobalamin (Vitamin B-12) 1,000 MCG TAB PO SCH (09:03)
[2017-07-22] MEDS: Ferrous Sulfate 325 MG TAB PO SCH ×2 (09:04→22:03)
[2017-07-22] MEDS: Saccharomyces boulardii 250 MG CAP PO SCH (09:04)
[2017-07-22] MEDS: Docusate 100 MG CAP PO SCH ×2 (09:04→22:19)
[2017-07-22] MEDS: Polyethylene Glycol 3350 17 GM Packet PO SCH (09:04)
[2017-07-22] MEDS: Heparin 5,000 UNITS/ML VIAL SC SCH ×3 (09:04→22:04)
[2017-07-22] MEDS: Famotidine 20 MG TAB PO SCH ×2 (09:04→22:03)
[2017-07-22] MEDS: Senokot S 8.6-50 MG TAB PO SCH ×2 (09:04→22:19)
[2017-07-22] MEDS: Piperacillin/Tazobactam 3.375 GM in Sodium Chloride 0.9% 100 ML IVPB SCH ×2 (12:22→17:53)
--- NOTE | 2017-07-22 16:51 | CON ---
DATE OF CONSULTATION: 07/22/2017 REASON FOR CONSULTATION: Inflammatory process, open reduction and internal fixation site, left lower extremity. HISTORY OF PRESENT ILLNESS: A 72-year-old with a history of obesity, hypertension, coronary artery d isease, and previous aortic valve replacement, which was a percutaneous replacement in [place], [place], who sustained a left distal femur and left ankle fracture after falling while transferring from her walker to a chair. This occurred in June, and she underwent open reduction and fixation. Actual ly, the procedure was on 07/09/2017, not in June. After that, the patient was transferred to [facility] in [place]. Procedure notes were reviewed. The first procedure was a left supracondylar femur fracture and trimalleolar ankle fracture. She had a plate in the distal femoral area with scre ws and then a plate with screws in the left ankle. The patient subsequently developed fever, initial ly felt to be possibly due to UTI, but that was not confirmed, sent to the emergency room after CBC s howed elevated white cell count. She had tachycardia, temperature 101.5. On exam, there was obvious evidence of inflammatory changes at the left lateral distal thigh operative site with erythema and t enderness and she underwent surgical evaluation and I and D by Dr. Delatorre on 07/20/2017. Dissection carried out to the fascia and all foreign material that was visible was removed. Hardware was felt t o be stable. There was some brown liquid with no other abnormalities noted. Irrigation was performe d and then patient transferred to the floor. Currently, she is awake and alert. Denies headaches, v isual symptoms, sore throat, odynophagia, dysphagia, no back pain, no dyspnea or chest pain, no abdom inal pain. Had a bowel movement, which is a little bit soft and she is voiding with the assistance o f a Post catheter. No neurological symptoms. PAST MEDICAL HISTORY: Obesity; aortic valve replacement, percutaneous; hypertension; coronary artery disease; dyslipidemia; DJD; pulmonary hypertension; pacemaker placement; and a recent fracture, whic h required distal femur and ankle ORIF. SOCIAL HISTORY: Never smoker. FAMILY HISTORY: Coronary artery disease. CURRENT MEDICATIONS: [place], Maalox, vitamin C, aspirin, Dulcolax, Colace, Pepcid, Feosol, Levaquin, Zosyn. PHYSICAL EXAMINATION: VITAL SIGNS: Temperature max 99.2 at this time, BP 99/35, pulse 84, respirations 16, O2 sat 93%. SKIN: Appears in no distress, chronically ill-appearing, left leg with a long area of debridement wi th negative pressure dressing on top along the lateral aspect of the left thigh all the way from the knee to the proximal third lateral aspect. The medial ankle incision with stitches in place with are a of erythema surrounding it, but with widths about 2 cm. No drainage. Peripheral IV access and ind welling Post catheter. HEENT: Ocular movements conjugate. Oral cavity with still quite a few teeth in place with marked de franca and gum disease and desiccation. Oral cavity otherwise somewhat dry. NECK: Supple, jugular vein distention. Pacer pocket site without inflammatory changes. LUNGS: With symmetric clear breath sounds. HEART: S1 and S2, regular rate with a soft 2/6 murmur at the second IC space left and right of the s ternum. ABDOMEN: With a very prominent panniculus. No tenderness. Soft. No organomegaly or ascites. No b ladder distention. EXTREMITIES: Groin area was normal and no pain elicited in the left ankle. Range of motion. Pulses are 1+ in dorsalis pedis. Cap refill less than 3 seconds. Plantar responses are flexor. NEUROLOGIC: Cognitive function appears to be intact. LABORATORY DATA: White cell count down to 12,000, hemoglobin 7.6, platelets 420, 77% neutrophils. S odium 135, creatinine up from 0.95-1.22. Liver profile normal. Albumin 2.5. Urinalysis was not rem arkable. Microbiology with preliminary thigh Gram stain with moderate gram-negative rods. Previous urine cultures with E. coli with a broad susceptibility profile. ASSESSMENT: 1. Obesity. 2. Coronary artery disease. 3. Previous aortic valve replacement, percutaneous. 4. Fall with a fractured distal femur and ankle, left side, with open reduction and internal fixatio n earlier this month. 5. Inflammatory process noticeable at the femur open reduction and internal fixation site, status po st I and D. There are some inflammatory changes noticeable too in the left ankle open reduction and internal fixation site. DISCUSSION: The Gram stain indicates a gram-negative reynaldo that could be related to the organism manuel martino from urinary tract. There is clinical and laboratory response thus far, and we will continue the regimen prescribed. Wait on final identification and we will need a PICC line placement and protrac gunner IV antimicrobial therapy administration, probably we will need suppressive therapy after that in view of the presence of hardware and the likelihood of colonization of the hardware with a biofilm fo rmation.
--- NOTE | 2017-07-22 22:15 | PDOC.PN ---
- Subjective Encounter Start Date: 07/22/17 Encounter Start Time: 12:00 Patient seen and examined. No new complaints. No overnight events - Objective Resuscitation Status: Resuscitation Status FULL:Full Resuscitation MAR Reviewed: Yes Vital Signs & Weight: Vital Signs (12 hours) Temp Pulse Resp BP Pulse Ox 07/22/17 16:45 97.8 F 121 H 22 H 141/65 H 94 L 07/22/17 11:30 99.1 F 84 16 99/35 L 93 L Weight Admit Weight 363 lb 12.203 oz Weight 363 lb 12.203 oz I&O: 07/21/17 07/22/17 07/23/17 06:59 06:59 06:59 Intake Total 580 1150 2292 Output Total 700 850 50 Balance -411 123 6479 Result Diagrams: 07/22/17 04:47 07/22/17 04:47 EKG Reviewed by me: Yes (Tele SR) Phys Exam - Physical Examination Constitutional: NAD Respiratory: no wheezing, no rhonchi Cardiovascular: RRR, no rub Gastrointestinal: soft, non-tender, positive bowel sounds Musculoskeletal: edema present Dx/Plan - Plan continue antibiotics, DVT proph w/heparin, DVT proph w/SCDs IMPRESSION: 1. Sepsis prob due to surgical site infection. s/p I&D 2. Morbid obesity BMI 58 3. HTN 4. CKD 3 5. Anemia prob due to hemodilution 6. Other issues per previous notes PLAN: * Cont IVF * Cont Atbx * ID input appreciated * Cont wound care/wound vac * DVT prophylaxis with SQ heparin * Check Cortisol in AM Review of Systems - Review of Systems Respiratory: negative: Cough, Dry, Shortness of Breath, Hemoptysis, SOB with Excertion, Pleuritic Pain, Sputum, Wheezing Cardiovascular: negative: chest pain, palpitations, orthopnea, paroxysmal nocturnal dyspnea, edema, light headedness - Medications/Allergies Allergies/Adverse Reactions: Allergies Allergy/AdvReac Type Severity Reaction Status Date / Time pineapple [Pineapple] Allergy Verified 07/05/17 02:21 Medications: Current Medications Acetaminophen (Tylenol) 650 mg PO Q4H PRN PRN Reason: Headache/Fever or Pain Hydrocodone Bitart/Acetaminophen ([place] 10/325) 1 tab PO Q4H PRN PRN Reason: Moderate Pain (4-6) Hydrocodone Bitart/Acetaminophen ([place] 10/325) 2 tab PO Q4H PRN PRN Reason: Severe Pain (7-10) Hydrocodone Bitart/Acetaminophen ([place] 5/325) 1 tab PO Q4H PRN PRN Reason: Moderate Pain (4-6) Al Hydroxide/Mg Hydroxide (Maalox) 30 ml PO Q6H PRN PRN Reason: Heartburn or Indigestion Artificial Tears (Tears Renewed 15ml Bottle) 0 drop EA EYE PRN PRN PRN Reason: Dry Eyes Ascorbic Acid (Vitamin C) 500 mg PO BID [facility] Last Admin: 07/22/17 09:03 Dose: 500 mg Aspirin (Aspirin Chewable) 81 mg PO DAILY [facility] Last Admin: 07/22/17 09:03 Dose: 81 mg Bisacodyl (Dulcolax) 10 mg PO DAILYPRN PRN PRN Reason: Constipation Cholecalciferol (Vitamin D3) 5,000 units PO DAILY [facility] Last Admin: 07/22/17 09:03 Dose: 5,000 units Cyanocobalamin (Vitamin B-12) 2,500 mcg PO QAM [facility] Last Admin: 07/22/17 09:03 Dose: 2,500 mcg Docusate Sodium (Colace) 100 mg PO BID [facility] Last Admin: 07/22/17 09:04 Dose: 100 mg Famotidine (Pepcid) 20 mg PO BID [facility] Last Admin: 07/22/17 09:04 Dose: 20 mg Ferrous Sulfate (Feosol) 325 mg PO BID [facility] Last Admin: 07/22/17 09:04 Dose: 325 mg Guaifenesin (Robitussin Sf) 200 mg PO Q4H PRN PRN Reason: Cough Heparin Sodium (Porcine) (Heparin) 5,000 units SC TID [facility] Last Admin: 07/22/17 15:36 Dose: 5,000 units Hydralazine HCl (Apresoline) 10 mg SLOW IVP Q4H PRN PRN Reason: Systolic BP > 180 Sodium Chloride (Normal Saline 0.9%) 1,000 mls @ 125 mls/hr IV .Q8H [facility] Last Admin: 07/22/17 17:54 Dose: 1,000 mls Levofloxacin 750 mg/ Device 150 mls @ 100 mls/hr IVPB Q48H [facility] Piperacillin Sod/Tazobactam (Sod 3.375 gm/ Sodium Chloride) 100 mls @ 200 mls/ hr IVPB Q6HR [facility] Last Admin: 07/22/17 17:53 Dose: 100 mls Loperamide HCl (Imodium) 2 mg PO PRN PRN PRN Reason: Diarrhea/Loose Stools Loratadine (Claritin) 10 mg PO DAILYPRN PRN PRN Reason: Sinus Symptoms Magnesium Hydroxide (Milk Of Magnesium) 30 ml PO DAILYPRN PRN PRN Reason: Constipation Mineral Oil/White Petrolatum (Eucerin Cream) 0 gm TOP BIDPRN PRN PRN Reason: Dry Skin Miscellaneous Medication (Pharmacy To Dose) 1 each IVPB PRN PRN PRN Reason: Pharmacy to dose Miscellaneous Medication (Pharmacy To Dose) 1 each IVPB ONE PRN PRN Reason: Pharmacy to dose Stop: 08/01/17 06:09 Ondansetron HCl (Zofran Odt) 4 mg PO Q6H PRN PRN Reason: Nausea/Vomiting Ondansetron HCl (Zofran) 4 mg IVP Q6H PRN PRN Reason: Nausea/Vomiting Phenol (Chloraseptic [place] 180 Ml Bot) 0 ml PO PRN PRN PRN Reason: Sore Throat Polyethylene Glycol (Miralax) 17 gm PO DAILY [facility] Last Admin: 07/22/17 09:04 Dose: 17 gm Saccharomyces Boulardii (Florastor) 250 mg PO DAILY [facility] Last Admin: 07/22/17 09:04 Dose: 250 mg Senna (Senokot) 2 tab PO HSPRN PRN PRN Reason: Constipation Senna/Docusate Sodium (Senokot S) 2 tab PO BID [facility] Last Admin: 07/22/17 09:04 Dose: 2 tab Sodium Chloride ([place] Nasal [place] 0.65%) 0 ml EA NARE QIDPRN PRN PRN Reason: Nasal Congestion Tramadol HCl (Ultram) 100 mg PO Q6HR [facility] Last Admin: 07/22/17 17:54 Dose: 100 mg Zolpidem Tartrate (Ambien) 5 mg PO HSPRN PRN PRN Reason: Insomnia
[2017-07-23] MEDS: traMADol HCl 50 MG TAB PO SCH ×5 (00:17→23:34)
[2017-07-23] MEDS: Piperacillin/Tazobactam 3.375 GM in Sodium Chloride 0.9% 100 ML IVPB SCH ×5 (00:18→23:34)
[2017-07-23] MEDS: Sodium Chloride 0.9% 1,000 ML IV SCH ×2 (03:04→11:05)
[2017-07-23 05:38] LABS: #Eosinphils 0.3 thou/uL (0.0-0.7); #Lymphocytes 1.1 thou/uL (1.20-3.40); #Monocytes 1.3 thou/uL (0.11-0.59); #Neutrophils 6.5 thou/uL (1.40-6.50); %Basophils 0.4 % (0.0-1.0); %Eosinophils 2.7 % (0.0-10.0); %Monocytes 14.5 % (0.0-10.0); %Neutrophils 70.3 % (42.0-75.0); Hemoglobin 7.9 g/dL (12.0-16.0); Mean Corpuscular HGB CONC 30.7 g/dL (32.0-36.0); Mean Corpuscular Hemoglobin 29.7 pg (27.0-31.0); Mean Corpuscular Volume 96.7 fl (81.0-99.0); Mean Platelet Volume 6.7 fL (7.4-10.4); Platelet Count 479 thou/uL (130-400); RBC Distribution Width 15.4 % (11.5-14.5); Red Blood Cell (RBC) Count 2.67 mill/uL (4.20-5.40); White Blood Cell (WBC) Count 9.2 thou/uL (4.8-10.8)
[2017-07-23 06:03] LABS: Anion Gap 14 mmol/L (10-20); BUN (Urea Nitrogen) 23 mg/dL (9.8-20.1); Calc. Creatinine Clearance 140 mL/min (70-130); Calcium 8.1 mg/dL (7.8-10.44); Carbon Dioxide 18 mmol/L (23-31); Chloride 109 mmol/L (98-107); Estimated GFR-MDRD 59; Glucose 114 mg/dL (83-110); Magnesium 1.8 mg/dL (1.6-2.6); Potassium 4.6 mmol/L (3.5-5.1); Sodium 136 mmol/L (136-145)
--- NOTE | 2017-07-23 10:08 | PQF ---
CLINICAL DOCUMENTATION IMPROVEMENT CLARIFICATION FORM: ICD-10 Updated PLEASE DO AN ADDENDUM TO THE PROGRESS NOTE WITH ANY DOCUMENTATION UPDATES OR ADDITIONS AND CARRY THROUGH TO DC SUMMARY. THANK YOU. DATE: 07/23 ATTN: DR. DESHAUN BARBOSA Please exercise your independent, professional judgment in responding to the clarification form. Clinical indicators are provided on the bottom of this form for your review. Please check appropriate box(s): [ ] Excisional Debridement: [ ] Excised [ ] Cut away [ ] Other: Depth / layer: (deepest layer of debridement): [ ] Skin [ ] Sub Q Tissue [ ] Fascia [ ] Muscle [ ] Tendon [ ] Bone Appearance of wound: (e.g., down to fresh bleeding tissue, etc.)___ Margins: (please specify): / x x Instruments used: [ ] Scissors [ ] Scalpel [ ] Curette [ ] Soft tissue clipper [ ] Other: [ ] Non-excisional Debridement: (Removal by flushing, brushing, chemical, or washing) Depth / layer: (deepest layer of debridement): [ ] Skin [ ] Subcutaneous [ ] Fascia [ ] Muscle [ ] Tendon [ ] Bone [ ] Incision and Drainage only (No Debridement): Depth:[ ] Skin [ ] Subcutaneous [ ] Fascia [ ] Muscle [ ] Tendon [ ] Bone [ ] Other procedure diagnosis [ ] Unable to determine For continuity of documentation, please document condition throughout progress notes and discharge summary. Thank You. CLINICAL INDICATORS - SIGNS / SYMPTOMS / LABS OPERATIVE NOTE 07/20: PROCEDURES: IRRIGATION AND DEBRIDEMENT OF LEFT FEMUR "DISSECTION WAS CARRIED DOWN TO THE FASCIA. I DID MY BEST TO REMOVE ALL THE FOREIGN MATERAL THAT WAS VISIBLE, CUT ALL THE WAY DOWN TO THE BONE AND THE PLATE ". RISK FACTORS: ORIF L FEMUR (07/09/2017) SEPSIS 2/2 SURGICAL SITE INFECTION MORBID OBESITY TREATMENTS: IRRIGATION & DEBRIDEMENT L FEMUR WOUND VAC THANK YOU! Jenny (This form is maintained as a part of the permanent medical record) 2014 [employer]. All Rights Reserved Jenny Floyd RN, BSN [email or web address] Office: [phone] [facility]
[2017-07-23] MEDS: Heparin 5,000 UNITS/ML VIAL SC SCH ×3 (10:54→21:25)
[2017-07-23] MEDS: Cyanocobalamin (Vitamin B-12) 1,000 MCG TAB PO SCH (10:55)
[2017-07-23] MEDS: Ascorbic Acid 500 mg Chewable Tablet PO SCH ×2 (10:55→21:25)
[2017-07-23] MEDS: Saccharomyces boulardii 250 MG CAP PO SCH (10:55)
[2017-07-23] MEDS: Famotidine 20 MG TAB PO SCH ×2 (10:56→21:25)
[2017-07-23] MEDS: Ferrous Sulfate 325 MG TAB PO SCH ×2 (10:56→21:25)
[2017-07-23] MEDS: Docusate 100 MG CAP PO SCH ×2 (10:56→21:25)
[2017-07-23] MEDS: Polyethylene Glycol 3350 17 GM Packet PO SCH ×3 (10:57)
[2017-07-23] MEDS: Senokot S 8.6-50 MG TAB PO SCH ×2 (10:57→21:25)
--- NOTE | 2017-07-23 15:17 | PDOC.PN ---
- Subjective Encounter Start Date: 07/23/17 Encounter Start Time: 15:16 Subjective: feels much better.still not bale to move around much - Objective Resuscitation Status: Resuscitation Status FULL:Full Resuscitation MAR Reviewed: Yes Vital Signs & Weight: Vital Signs (12 hours) Temp Pulse Pulse Pulse Resp BP BP 07/23/17 12:12 98 F 87 20 07/23/17 09:04 94 94 139/56 L 132/52 L 07/23/17 07:45 98 F 87 20 07/23/17 05:15 98.1 F 90 16 BP Pulse Ox 07/23/17 12:12 113/65 07/23/17 09:04 07/23/17 07:45 106/45 L 92 L 07/23/17 05:15 136/63 95 Weight Admit Weight 363 lb 12.203 oz Weight 363 lb 12.203 oz I&O: 07/22/17 07/23/17 07/24/17 06:59 06:59 06:59 Intake Total 1150 4192 Output Total 850 1050 Balance 300 3142 Result Diagrams: 07/23/17 04:25 07/23/17 04:25 Additional Labs: Microbiology 07/22/17 14:15 Stool C. difficile GDH Antigen & Toxins - Final 07/20/17 13:14 Thigh - Left Bacterial Culture - Final 07/20/17 13:14 Thigh - Left Anaerobic Culture - Final 07/20/17 08:37 Venous blood - Right Arm Blood Culture - Preliminary NO GROWTH AT 48 HOURS 07/20/17 08:35 Venous blood - Left Arm Blood Culture - Preliminary NO GROWTH AT 48 HOURS Radiology Reviewed by me: Yes Phys Exam - Physical Examination Constitutional: NAD HEENT: PERRLA, moist MMs, sclera anicteric, oral pharynx no lesions Neck: no nodes, no JVD, supple, full ROM Respiratory: no wheezing, no rales, no rhonchi, clear to auscultation bilateral Cardiovascular: RRR, no significant murmur Gastrointestinal: soft, non-tender, no distention, positive bowel sounds Musculoskeletal: pulses present, edema present (+3 LLE) Wound vac Left thigh.left ankle w rere w surrounding erythema Neurological: non-focal, normal sensation, moves all 4 limbs Psychiatric: normal affect, A&O x 3 Skin: no rash Dx/Plan (1) Sepsis Code(s): A41.9 - SEPSIS, UNSPECIFIED ORGANISM Status: Acute (2) Surgical site infection Code(s): T81.4XXA - INFECTION FOLLOWING A PROCEDURE, INITIAL ENCOUNTER Status : Acute Qualifiers: Encounter type: initial encounter Qualified Code(s): T81.4XXA - Infection following a procedure, initial encounter Comment: Left ORIF infection (3) Hyperlipidemia Code(s): E78.5 - HYPERLIPIDEMIA, UNSPECIFIED Status: Chronic (4) Hypertension Code(s): I10 - ESSENTIAL (PRIMARY) HYPERTENSION Status: Chronic (5) Morbid obesity Code(s): E66.01 - MORBID (SEVERE) OBESITY DUE TO EXCESS CALORIES Status: Chronic - Plan continue antibiotics, PT/OT, out of bed/ambulate, DVT proph w/SCDs cont Empiric ABx. 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 Wound vac in place -: cont OT,PT as tolerated.follow final Cx results. -: final ABx per ID .Can be Dced back to rehab for IV ABx -: WBC back to NL.No DVT in left leg.DC IVF & monitor for swelling * .on zosyn & levaquin for now. * am labs Review of Systems - Review of Systems Constitutional: weakness, malaise. negative: fever, chills, sweats, other ENT: negative: Ear Pain, Ear Discharge, Nose Pain, Nose Discharge, Nose Congestion, Mouth Pain, Mouth Swelling, Throat Pain, Throat Swelling, Other Respiratory: negative: Cough, Dry, Shortness of Breath, Hemoptysis, SOB with Excertion, Pleuritic Pain, Sputum, Wheezing Cardiovascular: edema. negative: chest pain, palpitations, orthopnea, paroxysmal nocturnal dyspnea, light headedness, other Gastrointestinal: negative: Nausea, Vomiting, Abdominal Pain, Diarrhea, Constipation, Melena, Hematochezia, Other Genitourinary: negative: Dysuria, Frequency, Incontinence, Hematuria, Retention , Other Musculoskeletal: Leg Pain. negative: Neck Pain, Shoulder Pain, Arm Pain, Back Pain, Hand Pain, Foot Pain, Other Skin: negative: Rash, Lesions, [place], Bruising, Other Neurological: negative: Weakness, Numbness, Incoordination, Change in Speech, Confusion, Seizures, Other - Medications/Allergies Allergies/Adverse Reactions: Allergies Allergy/AdvReac Type Severity Reaction Status Date / Time pineapple [Pineapple] Allergy Verified 07/05/17 02:21 Medications: Current Medications Acetaminophen (Tylenol) 650 mg PO Q4H PRN PRN Reason: Headache/Fever or Pain Hydrocodone Bitart/Acetaminophen ([place] 10/325) 1 tab PO Q4H PRN PRN Reason: Moderate Pain (4-6) Hydrocodone Bitart/Acetaminophen ([place] 10/325) 2 tab PO Q4H PRN PRN Reason: Severe Pain (7-10) Hydrocodone Bitart/Acetaminophen ([place] 5/325) 1 tab PO Q4H PRN PRN Reason: Moderate Pain (4-6) Al Hydroxide/Mg Hydroxide (Maalox) 30 ml PO Q6H PRN PRN Reason: Heartburn or Indigestion Artificial Tears (Tears Renewed 15ml Bottle) 0 drop EA EYE PRN PRN PRN Reason: Dry Eyes Ascorbic Acid (Vitamin C) 500 mg PO BID [facility] Last Admin: 07/23/17 10:55 Dose: 500 mg Aspirin (Aspirin Chewable) 81 mg PO DAILY [facility] Last Admin: 07/23/17 10:56 Dose: 81 mg Bisacodyl (Dulcolax) 10 mg PO DAILYPRN PRN PRN Reason: Constipation Cholecalciferol (Vitamin D3) 5,000 units PO DAILY [facility] Last Admin: 07/23/17 10:54 Dose: 5,000 units Cyanocobalamin (Vitamin B-12) 2,500 mcg PO QAM [facility] Last Admin: 07/23/17 10:55 Dose: 2,500 mcg Docusate Sodium (Colace) 100 mg PO BID [facility] Last Admin: 07/23/17 10:56 Dose: Not Given Famotidine (Pepcid) 20 mg PO BID [facility] Last Admin: 07/23/17 10:56 Dose: 20 mg Ferrous Sulfate (Feosol) 325 mg PO BID [facility] Last Admin: 07/23/17 10:56 Dose: 325 mg Guaifenesin (Robitussin Sf) 200 mg PO Q4H PRN PRN Reason: Cough Heparin Sodium (Porcine) (Heparin) 5,000 units SC TID [facility] Last Admin: 07/23/17 10:54 Dose: 5,000 units Hydralazine HCl (Apresoline) 10 mg SLOW IVP Q4H PRN PRN Reason: Systolic BP > 180 Levofloxacin 750 mg/ Device 150 mls @ 100 mls/hr IVPB Q48H [facility] Piperacillin Sod/Tazobactam (Sod 3.375 gm/ Sodium Chloride) 100 mls @ 200 mls/ hr IVPB Q6HR [facility] Last Admin: 07/23/17 12:14 Dose: 100 mls Loperamide HCl (Imodium) 2 mg PO PRN PRN PRN Reason: Diarrhea/Loose Stools Loratadine (Claritin) 10 mg PO DAILYPRN PRN PRN Reason: Sinus Symptoms Magnesium Hydroxide (Milk Of Magnesium) 30 ml PO DAILYPRN PRN PRN Reason: Constipation Mineral Oil/White Petrolatum (Eucerin Cream) 0 gm TOP BIDPRN PRN PRN Reason: Dry Skin Miscellaneous Medication (Pharmacy To Dose) 1 each IVPB PRN PRN PRN Reason: Pharmacy to dose Miscellaneous Medication (Pharmacy To Dose) 1 each IVPB ONE PRN PRN Reason: Pharmacy to dose Stop: 08/01/17 06:09 Ondansetron HCl (Zofran Odt) 4 mg PO Q6H PRN PRN Reason: Nausea/Vomiting Ondansetron HCl (Zofran) 4 mg IVP Q6H PRN PRN Reason: Nausea/Vomiting Phenol (Chloraseptic [place] 180 Ml Bot) 0 ml PO PRN PRN PRN Reason: Sore Throat Polyethylene Glycol (Miralax) 17 gm PO DAILY [facility] Last Admin: 07/23/17 10:57 Dose: Not Given Polyethylene Glycol (Miralax) 17 gm PO DAILY [facility] Last Admin: 07/23/17 10:57 Dose: Not Given Polyethylene Glycol (Miralax) 17 gm PO DAILY [facility] Last Admin: 07/23/17 10:57 Dose: Not Given Saccharomyces Boulardii (Florastor) 250 mg PO DAILY [facility] Last Admin: 07/23/17 10:55 Dose: 250 mg Senna (Senokot) 2 tab PO HSPRN PRN PRN Reason: Constipation Senna/Docusate Sodium (Senokot S) 2 tab PO BID [facility] Last Admin: 07/23/17 10:57 Dose: Not Given Sodium Chloride ([place] Nasal [place] 0.65%) 0 ml EA NARE QIDPRN PRN PRN Reason: Nasal Congestion Tramadol HCl (Ultram) 100 mg PO Q6HR [facility] Last Admin: 07/23/17 12:15 Dose: 100 mg Zolpidem Tartrate (Ambien) 5 mg PO HSPRN PRN PRN Reason: Insomnia
[2017-07-24] MEDS: Piperacillin/Tazobactam 3.375 GM in Sodium Chloride 0.9% 100 ML IVPB SCH ×3 (05:08→17:48)
[2017-07-24] MEDS: traMADol HCl 50 MG TAB PO SCH ×3 (05:09→17:51)
[2017-07-24 05:55] LABS: Anion Gap 13 mmol/L (10-20); BUN (Urea Nitrogen) 18 mg/dL (9.8-20.1); Calc. Creatinine Clearance 154 mL/min (70-130); Calcium 8.7 mg/dL (7.8-10.44); Carbon Dioxide 20 mmol/L (23-31); Chloride 109 mmol/L (98-107); Estimated GFR-MDRD 66; Glucose 114 mg/dL (83-110); Potassium 4.5 mmol/L (3.5-5.1); Sodium 137 mmol/L (136-145)
[2017-07-24 05:58] LABS: MDiff Complete? YES; Mean Corpuscular Hemoglobin 29.4 pg (27.0-31.0); Mean Corpuscular Volume 94.9 fl (81.0-99.0); Mean Platelet Volume 6.1 fL (7.4-10.4); Platelet Count 484 thou/uL (130-400); RBC Distribution Width 15.2 % (11.5-14.5); Red Blood Cell (RBC) Count 2.72 mill/uL (4.20-5.40); White Blood Cell (WBC) Count 8.1 thou/uL (4.8-10.8)
[2017-07-24 05:59] LABS: Band 1 % (5-11); Eosinophils 3 % (0-10); Lymphocytes 18 % (21-51); Monocytes 15 % (0-10); Neutrophil 63 % (42-75); PLT Morphology Comment Appears Increased
[2017-07-24] MEDS: Saccharomyces boulardii 250 MG CAP PO SCH (08:50)
[2017-07-24] MEDS: Famotidine 20 MG TAB PO SCH ×2 (08:50→20:34)
[2017-07-24] MEDS: Cyanocobalamin (Vitamin B-12) 1,000 MCG TAB PO SCH (08:51)
[2017-07-24] MEDS: Ferrous Sulfate 325 MG TAB PO SCH ×2 (08:51→20:34)
[2017-07-24] MEDS: Ascorbic Acid 500 mg Chewable Tablet PO SCH ×2 (08:51→20:33)
[2017-07-24] MEDS: Polyethylene Glycol 3350 17 GM Packet PO SCH ×3 (08:52)
[2017-07-24] MEDS: Docusate 100 MG CAP PO SCH ×2 (08:52→20:34)
[2017-07-24] MEDS: Heparin 5,000 UNITS/ML VIAL SC SCH ×3 (08:52→20:34)
[2017-07-24] MEDS: Senokot S 8.6-50 MG TAB PO SCH ×2 (08:53→20:34)
--- NOTE | 2017-07-24 13:51 | PQF ---
CLINICAL DOCUMENTATION IMPROVEMENT CLARIFICATION FORM: ICD-10 Updated PLEASE DO AN ADDENDUM TO THE PROGRESS NOTE WITH ANY DOCUMENTATION UPDATES OR ADDITIONS AND CARRY THROUGH TO DC SUMMARY. THANK YOU. DATE: 07/23 ATTN: DR. DESHAUN BARBOSA Please exercise your independent, professional judgment in responding to the clarification form. Clinical indicators are provided on the bottom of this form for your review. Please check appropriate box(s): [ ] Excisional Debridement: [ ] Excised [ ] Cut away [ ] Other: Depth / layer: (deepest layer of debridement): [ ] Skin[ ] Sub Q Tissue [ ] Fascia [ ] Muscle [ ] Tendon [ ] Bone Appearance of wound: (e.g., down to fresh bleeding tissue, etc.)___ Margins: (please specify): / x x Instruments used: [ ] Scissors [ ] Scalpel [ ] Curette [ ] Soft tissue clipper [ ] Other: [ ] Non-excisional Debridement: (Removal by flushing, brushing, chemical, or washing) Depth / layer: (deepest layer of debridement): [ ] Skin [ ] Subcutaneous [ ] Fascia [ ] Muscle [ ] Tendon [ ] Bone [ ] Incision and Drainage only (No Debridement): Depth: [ ] Skin [ ] Subcutaneous [ ] Fascia [ ] Muscle [ ] Tendon [ ] Bone [ ] Other procedure diagnosis [ ] Unable to determine For continuity of documentation, please document condition throughout progress notes and discharge summary. Thank You. CLINICAL INDICATORS - SIGNS / SYMPTOMS / LABS OPERATIVE NOTE 07/20: PROCEDURES: IRRIGATION AND DEBRIDEMENT OF LEFT FEMUR "DISSECTION WAS CARRIED DOWN TO THE FASCIA. I DID MY BEST TO REMOVE ALL THE FOREIGN MATERIAL THAT WAS VISIBLE, CUT ALL THE WAY DOWN TO THE BONE AND THE PLATE". RISK FACTORS: ORIF L FEMUR (07/09/2017) SEPSIS 2/2 SURGICAL SITE INFECTION MORBID OBESITY TREATMENTS: IRRIGATION & DEBRIDEMENT L FEMUR WOUND VAC THANK YOU! Jenny (This form is maintained as a part of the permanent medical record) 2014 [employer]. All Rights Reserved Jenny Floyd RN, BSN [email or web address] Office: [phone] [email or web address]
--- NOTE | 2017-07-24 15:00 | PDOC.PN ---
- Subjective Encounter Start Date: 07/24/17 Encounter Start Time: 14:58 Subjective: feels much better. no new complaints -: working w PT - Objective Resuscitation Status: Resuscitation Status FULL:Full Resuscitation MAR Reviewed: Yes Vital Signs & Weight: Vital Signs (12 hours) Temp Pulse Pulse Resp BP BP Pulse Ox 07/24/17 11:58 98.0 F 85 16 126/54 L 94 L 07/24/17 10:04 83 136/63 07/24/17 07:57 99.5 F 93 16 134/60 94 L 07/24/17 04:00 98.0 F 86 20 119/52 L 94 L Weight Admit Weight 363 lb 12.203 oz Weight 363 lb 12.203 oz I&O: 07/23/17 07/24/17 07/25/17 06:59 06:59 06:59 Intake Total 4192 2823 521 Output Total 1050 1975 950 Balance 3142 848 -429 Result Diagrams: 07/24/17 04:43 07/24/17 04:43 Additional Labs: Microbiology 07/22/17 14:15 Stool C. difficile GDH Antigen & Toxins - Final 07/20/17 13:14 Thigh - Left Bacterial Culture - Final 07/20/17 13:14 Thigh - Left Anaerobic Culture - Final 07/20/17 08:37 Venous blood - Right Arm Blood Culture - Preliminary NO GROWTH AT 48 HOURS 07/20/17 08:35 Venous blood - Left Arm Blood Culture - Preliminary NO GROWTH AT 48 HOURS Phys Exam - Physical Examination Constitutional: NAD HEENT: PERRLA, moist MMs, sclera anicteric, TM's clear, oral pharynx no lesions , 2+ tonsils Neck: no nodes, no JVD, supple, full ROM Respiratory: no wheezing, no rales, no rhonchi, wheezing present, clear to auscultation bilateral Cardiovascular: RRR, no significant murmur, no rub, gallop, irregular Gastrointestinal: soft, non-tender, no distention, positive bowel sounds Musculoskeletal: pulses present, edema present Left lateral thigh wound vac.left ankle rere w some redness around Neurological: non-focal, normal sensation, moves all 4 limbs Psychiatric: normal affect, A&O x 3 Skin: no rash Dx/Plan (1) Sepsis Code(s): A41.9 - SEPSIS, UNSPECIFIED ORGANISM Status: Acute (2) Surgical site infection Code(s): T81.4XXA - INFECTION FOLLOWING A PROCEDURE, INITIAL ENCOUNTER Status : Acute Qualifiers: Encounter type: initial encounter Qualified Code(s): T81.4XXA - Infection following a procedure, initial encounter Comment: Left ORIF infection (3) Hyperlipidemia Code(s): E78.5 - HYPERLIPIDEMIA, UNSPECIFIED Status: Chronic (4) Hypertension Code(s): I10 - ESSENTIAL (PRIMARY) HYPERTENSION Status: Chronic (5) Morbid obesity Code(s): E66.01 - MORBID (SEVERE) OBESITY DUE TO EXCESS CALORIES Status: Chronic - Plan continue antibiotics, PT/OT, out of bed/ambulate, DVT proph w/SCDs IV ABx per ID. all Cx remain negative.PICC to be placed today -: Ortho to remove rere today.OK to DC from ortho stand point -: Lucio DC to rehab in am on IV ABx,PT,OT -: Pt requesting to be DCed w nupur till she is ambulating better -: am labs * . Review of Systems - Review of Systems Constitutional: negative: fever, chills, sweats, weakness, malaise, other ENT: negative: Ear Pain, Ear Discharge, Nose Pain, Nose Discharge, Nose Congestion, Mouth Pain, Mouth Swelling, Throat Pain, Throat Swelling, Other Respiratory: negative: Cough, Dry, Shortness of Breath, Hemoptysis, SOB with Excertion, Pleuritic Pain, Sputum, Wheezing Cardiovascular: negative: chest pain, palpitations, orthopnea, paroxysmal nocturnal dyspnea, edema, light headedness, other Gastrointestinal: negative: Nausea, Vomiting, Abdominal Pain, Diarrhea, Constipation, Melena, Hematochezia, Other Genitourinary: negative: Dysuria, Frequency, Incontinence, Hematuria, Retention , Other Musculoskeletal: negative: Neck Pain, Shoulder Pain, Arm Pain, Back Pain, Hand Pain, Leg Pain, Foot Pain, Other Skin: negative: Rash, Lesions, [place], Bruising, Other Neurological: negative: Weakness, Numbness, Incoordination, Change in Speech, Confusion, Seizures, Other - Medications/Allergies Allergies/Adverse Reactions: Allergies Allergy/AdvReac Type Severity Reaction Status Date / Time pineapple [Pineapple] Allergy Verified 07/05/17 02:21 Medications: Current Medications Acetaminophen (Tylenol) 650 mg PO Q4H PRN PRN Reason: Headache/Fever or Pain Hydrocodone Bitart/Acetaminophen ([place] 10/325) 1 tab PO Q4H PRN PRN Reason: Moderate Pain (4-6) Last Admin: 07/24/17 09:24 Dose: 1 tab Hydrocodone Bitart/Acetaminophen ([place] 10/325) 2 tab PO Q4H PRN PRN Reason: Severe Pain (7-10) Hydrocodone Bitart/Acetaminophen ([place] 5/325) 1 tab PO Q4H PRN PRN Reason: Moderate Pain (4-6) Al Hydroxide/Mg Hydroxide (Maalox) 30 ml PO Q6H PRN PRN Reason: Heartburn or Indigestion Artificial Tears (Tears Renewed 15ml Bottle) 0 drop EA EYE PRN PRN PRN Reason: Dry Eyes Ascorbic Acid (Vitamin C) 500 mg PO BID [facility] Last Admin: 07/24/17 08:51 Dose: 500 mg Aspirin (Aspirin Chewable) 81 mg PO DAILY [facility] Last Admin: 07/24/17 08:51 Dose: 81 mg Bisacodyl (Dulcolax) 10 mg PO DAILYPRN PRN PRN Reason: Constipation Cholecalciferol (Vitamin D3) 5,000 units PO DAILY [facility] Last Admin: 07/24/17 08:51 Dose: 5,000 units Cyanocobalamin (Vitamin B-12) 2,500 mcg PO QAM [facility] Last Admin: 07/24/17 08:51 Dose: 2,500 mcg Docusate Sodium (Colace) 100 mg PO BID [facility] Last Admin: 07/24/17 08:52 Dose: Not Given Famotidine (Pepcid) 20 mg PO BID [facility] Last Admin: 07/24/17 08:50 Dose: 20 mg Ferrous Sulfate (Feosol) 325 mg PO BID [facility] Last Admin: 07/24/17 08:51 Dose: 325 mg Guaifenesin (Robitussin Sf) 200 mg PO Q4H PRN PRN Reason: Cough Heparin Sodium (Porcine) (Heparin) 5,000 units SC TID [facility] Last Admin: 07/24/17 08:52 Dose: 5,000 units Hydralazine HCl (Apresoline) 10 mg SLOW IVP Q4H PRN PRN Reason: Systolic BP > 180 Levofloxacin 750 mg/ Device 150 mls @ 100 mls/hr IVPB Q48H [facility] Last Admin: 07/23/17 17:28 Dose: 150 mls Piperacillin Sod/Tazobactam (Sod 3.375 gm/ Sodium Chloride) 100 mls @ 200 mls/ hr IVPB Q6HR [facility] Last Admin: 07/24/17 12:04 Dose: 100 mls Loperamide HCl (Imodium) 2 mg PO PRN PRN PRN Reason: Diarrhea/Loose Stools Loratadine (Claritin) 10 mg PO DAILYPRN PRN PRN Reason: Sinus Symptoms Magnesium Hydroxide (Milk Of Magnesium) 30 ml PO DAILYPRN PRN PRN Reason: Constipation Mineral Oil/White Petrolatum (Eucerin Cream) 0 gm TOP BIDPRN PRN PRN Reason: Dry Skin Miscellaneous Medication (Pharmacy To Dose) 1 each IVPB PRN PRN PRN Reason: Pharmacy to dose Miscellaneous Medication (Pharmacy To Dose) 1 each IVPB ONE PRN PRN Reason: Pharmacy to dose Stop: 08/01/17 06:09 Ondansetron HCl (Zofran Odt) 4 mg PO Q6H PRN PRN Reason: Nausea/Vomiting Ondansetron HCl (Zofran) 4 mg IVP Q6H PRN PRN Reason: Nausea/Vomiting Phenol (Chloraseptic [place] 180 Ml Bot) 0 ml PO PRN PRN PRN Reason: Sore Throat Polyethylene Glycol (Miralax) 17 gm PO DAILY [facility] Last Admin: 07/24/17 08:52 Dose: Not Given Polyethylene Glycol (Miralax) 17 gm PO DAILY [facility] Last Admin: 07/24/17 08:52 Dose: Not Given Polyethylene Glycol (Miralax) 17 gm PO DAILY [facility] Last Admin: 07/24/17 08:52 Dose: Not Given Saccharomyces Boulardii (Florastor) 250 mg PO DAILY [facility] Last Admin: 07/24/17 08:50 Dose: 250 mg Senna (Senokot) 2 tab PO HSPRN PRN PRN Reason: Constipation Senna/Docusate Sodium (Senokot S) 2 tab PO BID [facility] Last Admin: 07/24/17 08:53 Dose: Not Given Sodium Chloride ([place] Nasal [place] 0.65%) 0 ml EA NARE QIDPRN PRN PRN Reason: Nasal Congestion Tramadol HCl (Ultram) 100 mg PO Q6HR [facility] Last Admin: 07/24/17 12:04 Dose: 100 mg Zolpidem Tartrate (Ambien) 5 mg PO HSPRN PRN PRN Reason: Insomnia
--- NOTE | 2017-07-24 15:42 | SPC ---
FLUOROSCOPIC AND ULTRASOUND GUIDED PICC LINE PLACEMENT: Date: 07/24/17 HISTORY: Need for long-term IV access. COMPARISON: None. TECHNIQUE/FINDINGS: The patient was brought to the [facility]. All questions were answered. Informed consent was already obtained. Time-out was performed. The left basilic vein was accessed using ultrasound guidance and a Micropuncture set. Over a wire, an d through a peel-away sheath, a 49.5 cm single lumen PICC was placed with tip at the inferior SVC. Th e patient tolerated the procedure well and without complication. IMPRESSION: Technically successful left basilic PICC line placement, tip in good position without complication. FLUORO TIME: 1.8 minutes. POS: [facility]
--- NOTE | 2017-07-24 20:19 | EKG ---
Test Reason : Blood Pressure : / mmHG Vent. Rate : 119 BPM Atrial Rate : 119 BPM P-R Int : 000 ms QRS Dur : 142 ms QT Int : 396 ms P-R-T Axes : 094 037 130 degrees QTc Int : 557 ms Electronic ventricular pacemaker Confirmed by EZ JUSTIN ([id number]) on 07/24/2017 8:19:39 PM Referred By: NANNETTE Confirmed By:EZ JUSTIN
[2017-07-25] MEDS ORDERED: Clopidogrel Bisulfate 75 MG TAB ONE (00:07)
[2017-07-25] MEDS: traMADol HCl 50 MG TAB PO SCH ×3 (00:10→12:10)
[2017-07-25] MEDS: Piperacillin/Tazobactam 3.375 GM in Sodium Chloride 0.9% 100 ML IVPB SCH ×3 (00:10→12:11)
[2017-07-25] MEDS: Famotidine 20 MG TAB PO SCH (08:57)
[2017-07-25] MEDS: Saccharomyces boulardii 250 MG CAP PO SCH (08:57)
[2017-07-25] MEDS: Cyanocobalamin (Vitamin B-12) 1,000 MCG TAB PO SCH (08:57)
[2017-07-25] MEDS: Ascorbic Acid 500 mg Chewable Tablet PO SCH (08:57)
[2017-07-25] MEDS: Heparin 5,000 UNITS/ML VIAL SC SCH ×2 (08:58→14:50)
[2017-07-25] MEDS: Ferrous Sulfate 325 MG TAB PO SCH (08:58)
[2017-07-25] MEDS: Polyethylene Glycol 3350 17 GM Packet PO SCH (08:58)
[2017-07-25] MEDS: Senokot S 8.6-50 MG TAB PO SCH (08:58)
[2017-07-25] MEDS: Docusate 100 MG CAP PO SCH (08:58)
--- NOTE | 2017-07-25 14:49 | DIS ---
DATE OF ADMISSION: 07/20/2017 DATE OF DISCHARGE: 07/25/2017 CONDITION AT THE TIME OF DISCHARGE: Stable and improved. DISCHARGE DISPOSITION: Back to [facility] where the patient presented f rom. PRIMARY CARE PHYSICIAN: Marilynn Portillo M.D. DISCHARGE MEDICATIONS: 1. Meropenem 1 g every 8 hours for next 30 days, 2. Lasix 20 mg in the morning. 3. Pepcid 20 mg p.o. b.i.d. 4. Carvedilol 1 tablet p.o. b.i.d. 5. Lisinopril 20 mg daily. 6. Loratadine as needed. 7. Milk of Magnesia as needed. 8. Nitroglycerin as needed. 9. Florastor 250 mg daily. 10. Zofran p.r.n. every 4 hours as needed. 11. Tramadol as needed. 12. Senokot as needed. 13. Coreg 6.25 mg p.o. b.i.d. DISCHARGE DIAGNOSES: 1. Sepsis. 2. Postoperative infection after total hip replacement. 3. History of aortic stenosis status post transcutaneous aortic valve replacement with bioprosthetic valve. 4. Morbid obesity. 5. History of hypertension. 6. Coronary artery disease. 7. Recent distal femur fracture and trimalleolar ankle fracture status post open reduction and inter nal fixation. 8. Normocytic normochromic anemia. CONSULTATIONS INHOUSE: Include, 1. Infectious Disease, Dr. Fuentes. 2. Orthopedics, Dr. Vipin Delatorre PROCEDURES DONE IN THE HOSPITAL: Include, 1. Placement of a wound VAC. 2. I&D of the left femur by Dr. Delatorre. 3. Placement of a PICC line. HISTORY OF PRESENTING ILLNESS: Ms. Phoenix is a pleasant 72-year-old female who is status post O RIF of distal left femur fracture and left bimalleolar fracture undergoing surgery on 07/09/2017 and being discharged to rehabilitation; came back to the emergency room after she was having on and off f ever with chills and rigors. Upon presentation, she was found to be septic with tachycardia, tempera ture of 101.5 and leukocytosis with bandemia. She was admitted with presumptive diagnosis of surgica l site infection. On her examination, she was found to have redness around the surgical site incisio n. Orthopedics and ID was consulted with regards to that. Please see admission history and physical for further details. HOSPITAL COURSE: Dr. Delatorre saw the patient and took her to the OR the next day for I&D. It was don e and wound VAC was placed and she was continued on IV antibiotics. ID was consulted with regards to the choice of antibiotics. She got a PICC line placed and was set up to receive broad spectrum IV a ntibiotics for a protracted period of time as all of her cultures remained negative. Her thigh cultu re has been negative as well as her blood culture. She was initially thought to be going on Invanz, but because of the cost issues; it was changed to meropenem. manager professional development helped in assisting with t he wound VAC and IV antibiotics at her prior rehab facility. After this was done, she is being disch arged today back to the facility for rehabilitation. She is otherwise clinically stable and back to her baseline and working with physical therapy while she is here and remains hemodynamically stable. She was seen and examined prior to discharge. PHYSICAL EXAMINATION: VITAL SIGNS: Include temperature 98.1, pulse 96, respirations 20, saturating 96% on room air, blood pressure 142/63. GENERAL: No acute distress, awake, alert, oriented x3. CHEST: Clear to auscultation bilaterally without any wheezing, rales or rhonchi. Rate and rhythm is regular. ABDOMEN: Morbidly obese, soft, nontender, nondistended. EXTREMITIES: Left thigh wound VAC on the lateral side. There is mild erythema to the left ankle whe re she had her rere which are now removed prior to discharge. At this time, she is ready for discharge to the next site of care. She will finish her rehabilitatio n at [facility] where she came from. Discharge plan was discussed with the patient in detail who verbalized understanding. Total time spent in the discharge of this patient is 35 minutes.
[2017-07-25 16:27] VITALS: BP 145/58; TEMP 98.4
--- NOTE | 2017-07-27 11:56 | EKG ---
Test Reason : SEPSIS ALERT Blood Pressure : / mmHG Vent. Rate : 115 BPM Atrial Rate : 115 BPM P-R Int : 158 ms QRS Dur : 148 ms QT Int : 362 ms P-R-T Axes : 030 004 128 degrees QTc Int : 500 ms Sinus tachycardia Possible Left atrial enlargement Left bundle branch block Abnormal ECG Confirmed by TERESA HURTADO M.D. ([id number]), editorial specialist MELISSA ANGEL ([id number]) on 07/27/2017 11:56:03 AM Referred By: Confirmed By:TERESA HURTADO M.D.
== END 2017-07-25 17:12 | disposition home or self-care (01) | DRG 856 ==
LOC: ERS 08:04 → SDC 11:28 → 2NO 11:30 → SURG A 15:19 → 2NO 16:19
PROVIDERS: ADMIT Internal Medicine; ATTEND Internal Medicine
PROC: 0QB70ZZ Excision of Left Upper Femur, Open Approach (ICD-10-PCS; principal; 2017-07-20)
DX: Z95.2 Presence of prosthetic heart valve; A41.9 Sepsis, unspecified organism; T81.4XXA Infection following a procedure, initial encounter; Z68.43 Body mass index [BMI] 50.0-59.9, adult; E66.01 Morbid (severe) obesity due to excess calories; Z91.018 Allergy to other foods; D64.9 Anemia, unspecified; E78.5 Hyperlipidemia, unspecified; Z66 Do not resuscitate; N18.3 Chronic kidney disease, stage 3 (moderate); Z95.0 Presence of cardiac pacemaker; Z79.899 Other long term (current) drug therapy; Z79.82 Long term (current) use of aspirin; Y83.1 Surgical operation with implant of artificial internal device as the cause of abnormal reaction of the patient, or of later complication, without mention of misadventure at the time of the procedure; I12.9 Hypertensive chronic kidney disease with stage 1 through stage 4 chronic kidney disease, or unspecified chronic kidney disease; I27.20 Pulmonary hypertension, unspecified; I25.10 Atherosclerotic heart disease of native coronary artery without angina pectoris
CPT/HCPCS: 36415; 36569; 51702; 71045; 80048; 80053; 81003; 82533; 83605; 83735; 85025; 85652; 86140; 87040; 87070; 87205; 87324; 87449; 93005; 93010; 93970; 96361; 96365; 96368; C1751; G8981-GP-CN; G8982-GP-CL; G8987-GO-CK; G8988-GO-CJ; J1644; J1956; J2001; J2543; J2704; J3010; J3370; J3490; J7050

== ENCOUNTER 2017-08-14 12:22 | Inpatient (IN) | payer MEDICARE ==
[2017-08-14] MEDS ORDERED: Ondansetron HCl/PF 4 MG/2 ML Vial IVP PRN ×3 (12:54→17:22)
[2017-08-14] MEDS ORDERED: CEFAZOLIN/Water 2 GM/20 ML SYRINGE SLOW IVP SCH (13:15)
[2017-08-14 13:16] LABS: Hemoglobin 12.5 g/dL (12.0-16.0); Mean Corpuscular HGB CONC 30.4 g/dL (32.0-36.0); Mean Corpuscular Hemoglobin 27.7 pg (27.0-31.0); Mean Corpuscular Volume 91.3 fl (81.0-99.0); Platelet Count 540 thou/uL (130-400); RBC Distribution Width 16.3 % (11.5-14.5); Red Blood Cell (RBC) Count 4.49 mill/uL (4.20-5.40); White Blood Cell (WBC) Count 20.7 thou/uL (4.8-10.8)
[2017-08-14 13:26] LABS: Anion Gap 17 mmol/L (10-20); BUN (Urea Nitrogen) 20 mg/dL (9.8-20.1); Calc. Creatinine Clearance 0 mL/min (70-130); Calcium 9.7 mg/dL (7.8-10.44); Carbon Dioxide 26 mmol/L (23-31); Chloride 98 mmol/L (98-107); Estimated GFR-MDRD 66; Glucose 107 mg/dL (83-110); Potassium 4.8 mmol/L (3.5-5.1); Sodium 136 mmol/L (136-145)
[2017-08-14 13:33] LABS: Band 2 % (5-11); Eosinophils 2 % (0-10); Lymphocytes 6 % (21-51); MDiff Complete? YES; Monocytes 9 % (0-10); Neutrophil 81 % (42-75); PLT Morphology Comment Appears Increased; RBC Morphology Normal
--- NOTE | 2017-08-14 13:35 | RAD ---
SINGLE VIEW CHEST: HISTORY: Decreased mobility. COMPARISON: 07/20/2017 FINDINGS: Single view of the chest shows a normal sized cardiomediastinal silhouette. The pacemaker is unchang ed in position. Atherosclerotic calcifications are seen in the aorta. There is no evidence of conso lidation, mass, or pleural effusion. Degenerative changes are seen in the spine. IMPRESSION: No evidence of acute cardiopulmonary disease. POS: [facility]
[2017-08-14] MEDS ORDERED: PROPOFOL 200 MG/20 ML VIAL ONE (13:42)
[2017-08-14] MEDS ORDERED: PHENYLEPHRINE-NS 100 MCG/ML 10 ML SYRINGE ONE (13:42)
[2017-08-14] MEDS ORDERED: Lidocaine 1% PF 5 ML VIAL ONE (13:42)
[2017-08-14] MEDS: Sodium Chloride 0.9% 1,000 ML IV SCH (14:41)
--- NOTE | 2017-08-14 15:09 | CON ---
DATE OF CONSULTATION: 08/14/2017 HISTORY OF PRESENT ILLNESS: The patient was sent back to our facility from [place] for an increase i n her white blood cell count. Apparently, per our nurse in the office, she got a call that she went from 11.2 few days ago to 14.6. I speaking with the patient, they discontinued her wound VAC 4 days ago for tunneling. They did not get a request from our office or in order to discontinue the wound V AC as far as I know. She states she has no cough. She has had no fever. She denies any pain other than changing the dressing at the hip site, the femur site. She did have her ankle repaired previous ly with this femur and that is feeling good and healing well. The patient's original surgery was 09/2017. She returned to the hospital for some serosanguineous discharge and Dr. Delatorre and myself o pened and debrided the area again and looked more like fat necrosis. The concern is the rising white blood cell count. Looking through her notes from the [facility], I d o not see a recent chest x-ray and I do not have copies of the said labs. The patient denies anythin g has changed since her last visit. She continues to take the medications that she was discharged . PAST MEDICAL HISTORY: Positive for hypertension, obesity, coronary artery disease, dyslipidemia, tala yarticular arthritis, and pulmonary hypertension. ALLERGIES: No known drug allergies. MEDICATIONS: After review these with the patient as her current list was not sent with her either. SURGICAL HISTORY: Aortic valve replacement, pacemaker placement, tonsils, left femur repair, left OR IF ankle, and left femur wound washout. SOCIAL HISTORY: She is currently at [facility]. Not on nicotine prod ucts. FAMILY HISTORY: Noncontributory. PHYSICAL EXAMINATION: GENERAL: Patient is in her normal state of health. She is resting in bed and has no complaints what soever. Denies chest pain, shortness of breath. HEENT: Face symmetric, tongue midline. NECK: Supple, moving her neck well. EXTREMITIES: Upper extremity, she has an IV in her left arm, otherwise are equal size, shape, symmet ry normal bulk and tone. Lower extremities, I poked around on her left incision site, she denies any pain whatsoever. There is a little mild redness, I could be tape irritation, but otherwise no gross signs and symptoms of infection that I could appreciate, no increased warmth to the area compared to the right femur area. Incision in the left ankle healing well. Incisions are approximated. She is moving bilateral lower extremities fair and as much as she is able to. Her sensations are intact. Pulses symmetric. ASSESSMENT: Suspected wound infection left lower extremity. PLAN: I am going to get some stat labs as nothing was provided for us. Chest x-ray. We will get a stat UA, CBC, Chem-7. We will keep her n.p.o. She did eat at 8 and we have her on the schedule for 1600 today for wound washout. I will also get the Sound folks involved with her. I will probably zamarripa ve to have wound care again as a wound VAC was discontinued 4 days ago. Her Post was replaced on , so we will get a urine from that and we will continue her medications. Once I have a list, I will go over those with her, and see if we can get a list sent from the nursing facility. I spoke with patient, she understands the plan. She is amenable to go forth with a wound washout. We will keep her n.p.o. and put on the OR schedule and consented. Antonio Wetzel PA-C dictating for Shon Lazaro M.D.
[2017-08-14 15:42] LABS: Bilirubin Negative (Negative); Blood, Urine Negative (Negative); Clarity CLEAR (Clear); Glucose, Urine (Dipstick) Negative (Negative); Leukocyte Trace (Negative); Nitrite Negative (Negative); Protein, Urine (Dipstick) 30 mg/dL (Neg-Trace); Specific Gravity, Urine 1.015 (1.002-1.036); Urobilinogen 0.2 mg/dL (0.2-1.0); pH, Urine 6.5 (5.0-9.0)
[2017-08-14 15:43] LABS: Bacteria/HPF None Seen HPF (None Seen); Hyaline Casts/LPF 0-3 HYALINE CAST LPF (0-3 Hyaline); Pathc Cast-AUWi Flag 0.29 (0-2.49); RBC/HPF 0-3 HPF (0-3); Squamous Epithelial 0-3 HPF (0-3)
[2017-08-14] MEDS ORDERED: Senokot 8.6 MG TAB PO PRN (15:43)
[2017-08-14 15:45] LABS: Yeast-AUWi Flag 65.1 (0-25.0)
[2017-08-14 15:57] LABS: Yeast-All Forms 1+ HPF (None Seen)
[2017-08-14] MEDS ORDERED: CEFAZOLIN/Water 2 GM/20 ML SYRINGE ONE (16:01)
[2017-08-14] MEDS ORDERED: Fentanyl 100 MCG/2 ML VIAL ONE ×4 (16:23→18:49)
[2017-08-14] MEDS ORDERED: Neomycin-Polymyxin 1 ML AMP ONE (17:05)
[2017-08-14] MEDS ORDERED: Gentamicin 80 MG/2 ML VIAL ONE (17:05)
[2017-08-14] MEDS ORDERED: Promethazine HCl 25 MG/ML VIAL IM PRN ×2 (17:22)
[2017-08-14] MEDS ORDERED: Promethazine HCl 25 MG/ML VIAL SLOW IVP PRN ×2 (17:22)
[2017-08-14] MEDS: Carvedilol 6.25 MG TAB PO SCH (17:25)
[2017-08-14] MEDS ORDERED: Acetaminophen 500 MG TAB PO PRN (18:52)
--- NOTE | 2017-08-14 19:49 | RAD ---
TWO VIEW LEFT ANKLE SERIES: 08/14/17 INDICATION: Postoperative evaluation. FINDINGS: Plate and screw fixation are seen at the distal fibula. There is a single metallic screw traversing t he medial malleolar fracture site. No obvious hardware complication. Prominent degenerative change an d vascular calcification present. IMPRESSION: Postoperative distal fibula and tibia. POS: [facility]
--- NOTE | 2017-08-14 20:13 | RAD ---
LEFT FEMUR TWO VIEW SERIES: 08/14/17 Four views submitted. CLINICAL HISTORY: Postoperative evaluation. FINDINGS: Plate and screw fixation traverse the majority of the left femur from the level of the proximal diaph ysis through the condylar region. Fracture lucencies persist with mild displacement. There is a metal lic clip overlying distal thigh soft tissues. Incompletely assessed osseous irregularity seen at the proximal aspect of the fibula. There is prominent osteoarthritis of the knee joint. Evaluation is limited to the level of the hip joint due to underpenetration of this region. IMPRESSION: Postoperative left femur, as above. POS: [facility]
[2017-08-14] MEDS: Famotidine 20 MG TAB PO SCH (20:18)
[2017-08-14] MEDS: HYDROcodone/Acetaminophen 5/325 mg Tablet PO PRN (20:19)
--- NOTE | 2017-08-14 20:25 | PDOC.PN ---
- Subjective Encounter Start Date: 08/14/17 Encounter Start Time: 17:00 Subjective: pt in surgery, unable to see pt on multiple attempts - Objective Resuscitation Status: Resuscitation Status FULL:Full Resuscitation Vital Signs & Weight: Vital Signs (12 hours) Temp Pulse Resp BP Pulse Ox 08/14/17 18:45 98.5 F 93 18 119/64 92 L 08/14/17 12:30 99 F 97 18 92 L 08/14/17 12:29 99 F 97 18 154/80 H 92 L Weight Weight 262 lb 14.4 oz I&O: 08/13/17 08/14/17 08/15/17 06:59 06:59 06:59 Output Total 500 Balance -500 Result Diagrams: 08/19/17 08:41 08/19/17 08:41 Dx/Plan - Plan 1) possible wound infection 2) generalized weakness plan: will start pt on her home meds and abx. already spoke with PA. * .
[2017-08-14] MEDS: Meropenem 1 GM in Sodium Chloride 0.9% 100 ML IVPB SCH (22:37)
[2017-08-15] MEDS: HYDROcodone/Acetaminophen 5/325 mg Tablet PO PRN ×4 (00:01→21:01)
[2017-08-15] MEDS: Meropenem 1 GM in Sodium Chloride 0.9% 100 ML IVPB SCH (05:12)
[2017-08-15] MEDS: Sodium Chloride 0.9% 1,000 ML IV SCH ×2 (05:15→15:58)
[2017-08-15 06:16] LABS: Anion Gap 8 mmol/L (10-20); BUN (Urea Nitrogen) 17 mg/dL (9.8-20.1); Calc. Creatinine Clearance 118 mL/min (70-130); Calcium 8.5 mg/dL (7.8-10.44); Carbon Dioxide 30 mmol/L (23-31); Chloride 100 mmol/L (98-107); Estimated GFR-MDRD 70; Glucose 119 mg/dL (83-110); Potassium 4.4 mmol/L (3.5-5.1); Sodium 134 mmol/L (136-145)
[2017-08-15 06:22] LABS: Band 2 % (5-11); Hemoglobin 9.8 g/dL (12.0-16.0); Lymphocytes 10 % (21-51); MDiff Complete? YES; Mean Corpuscular HGB CONC 31.3 g/dL (32.0-36.0); Mean Corpuscular Hemoglobin 28.3 pg (27.0-31.0); Mean Corpuscular Volume 90.5 fl (81.0-99.0); Monocytes 14 % (0-10); Neutrophil 74 % (42-75); PLT Morphology Comment Appears Increased; Platelet Count 492 thou/uL (130-400); RBC Distribution Width 16.3 % (11.5-14.5); Red Blood Cell (RBC) Count 3.48 mill/uL (4.20-5.40); White Blood Cell (WBC) Count 15.7 thou/uL (4.8-10.8)
[2017-08-15] MEDS ORDERED: traMADol HCl 50 MG TAB PO PRN ×2 (08:41)
[2017-08-15] MEDS: Famotidine 20 MG TAB PO SCH ×2 (08:47→20:52)
[2017-08-15] MEDS ORDERED: Furosemide 20 MG TAB PO SCH (09:00)
[2017-08-15] MEDS ORDERED: Lisinopril 20 MG TAB PO SCH (09:00)
[2017-08-15] MEDS: Fentanyl 100 MCG/2 ML VIAL SLOW IVP PRN (09:57)
[2017-08-15] MEDS: Carvedilol 6.25 MG TAB PO SCH ×2 (10:26→16:10)
--- NOTE | 2017-08-15 11:43 | OP ---
DATE OF PROCEDURE: 08/14/2017 PREOPERATIVE DIAGNOSIS: Infected left thigh, status post open reduction internal fixation, left dist al femur. POSTOPERATIVE DIAGNOSIS: Infected left thigh, status post open reduction internal fixation, left dis letitia femur. SURGICAL PROCEDURE: Irrigation and debridement of left lateral thigh wound. ANESTHESIA: General. SURGEON: Shon Lazaro M.D. FLAT POLISHER: Antonio Wetzel PA-C. TOURNIQUET TIME: Zero. BLOOD LOSS: 100 mL SPECIMEN: Swab sent for Gram stain, culture and sensitivity, acid fast bacteria, fungus, aerobic and anaerobic. DRAINS: None. IMPLANTS: None. COMPLICATIONS: None. OUTCOME: Satisfactory. FINDINGS: Small area of necrotic fat of posterior superior wound, but no purulent material encounter ed. INDICATIONS: The patient is a 72-year-old lady status post a distal femur fracture treated with open reduction internal fixation. Unfortunately, the patient went on to develop a wound infection that i s now status post irrigation, debridement, and the patient has been treated with a wound VAC. The wo und VAC has been discontinued and with this discontinuance, patient has had an increase in her white blood cell count from 11-20 and also has had some discharge from the wound. Given the deep hardware present and the concerns for ongoing infection, patient now taken back to the operating room for irri gation and debridement. PROCEDURE: After the induction of general anesthesia, a sterile prep and drape was performed of the left lateral thigh. The packings have been previously removed. Next, the wounds were inspected and were found to extend deep, almost to the level of the lateral thigh and hardware. There was some gra nulation tissue beginning to cover the hardware with digital manipulation. This was broken down such that no cavities were left behind. There was some necrotic fat using a scalpel, the skin, subcutane ous tissue, and fat was excised. Once all necrotic tissue was removed, the wound was irrigated with 8 liters of normal saline using Pulsavac with the final 5 liters having antibiotic irrigant added. At the completion of this, the wound again inspected. No necrotic material visualized and this was packed open with plans to proceed with wound VAC tomorrow. Following the packing and dressing appli cation, the patient was transferred to recovery room in stable condition. There were no complication s.
[2017-08-15] MEDS: cefTRIAXone\\ROCEPHIN 2 GM in Sodium Chloride 0.9% 100 ML IVPB SCH (14:01)
--- NOTE | 2017-08-15 14:26 | CON ---
DATE OF CONSULTATION: 08/15/2017 REASON FOR CONSULTATION: Breakdown in the left thigh wound. HISTORY OF PRESENT ILLNESS: A 72-year-old with a history of recent distal femur fracture and ankle f racture who had open reduction and internal fixation in [facility] with subsequent develop ment of inflammatory changes associated with fever, neutrophilia tachycardia. She underwent removal of foreign material. The hardware was felt to be stable and cultures at that time yielded a few mixe d skin dulce maria, moderate gram negative rods, but no gram negative rods isolated from culture. The nestor ent was transferred to [facility] on meropenem. She initially did well, but ov er the past few days, the wound care nurse noticed deterioration of the wound appearance with tunneli ng at 11 o'clock as well as the covering of the base of the wound by yellow slough. There were some areas of necrosis in the skin margins and therefore the patient was transferred. She had no reported history of headaches. No shortness of breath or chest pain, no vomiting, hematemesis or melena. So me loose stool intermittently. No abdominal cramps. She still has a Post catheter in place from th e time of the fracture repair. PAST MEDICAL HISTORY: Obesity, aortic valve replacement which was percutaneous, hypertension, bhatia ry artery disease, pulmonary hypertension, pacemaker, following the valve replacement, distal femur a nd left ankle fracture with open reduction internal fixation, inflammatory changes with I&D in [facility] as noted above. SOCIAL HISTORY: Never a smoker. FAMILY HISTORY: Coronary artery disease. MEDICATIONS: Tylenol, [place], Coreg, Ancef, Pepcid, Sublimaze, Lasix, Zestril, meropenem. PHYSICAL EXAMINATION: VITAL SIGNS: T-max 99.9, blood pressure 117/47, pulse 108, respirations 18, O2 sat 90% to 93. GENERAL: Appears in no distress. She knows where she is and her name, knew the year, but not the mo nth. SKIN: Shows the left lateral thigh wound with a negative pressure dressing, there is a little bit of erythema surrounding the lower margins of the area. She has a number of other smaller wounds in the lower extremities with maceration of the intertriginous surfaces as well in the groin. The patient has a PICC line which appears to have been pulled 2 inches, at least from the insertion site. No lym phadenopathy. HEENT: Ocular movements are conjugate. Oral cavity normal. NECK: Supple. LUNGS: With symmetric clear breath sounds. HEART: She has a systolic 2/6 murmur at the aortic area and a fairly loud S4, regular rate. Pacer p ocket site without inflammatory changes. ABDOMEN: She has quite prominent abdominal panniculus. The abdomen is soft and not tender. No asci mandy. No organomegaly, no bladder distention. : She has a Post catheter in place. EXTREMITIES: Pulses are 1+ in dorsalis pedis. She is able to wiggle her toes. Plantar responses ar e flexure. No clonus. The site over the medial left ankle is dry with no inflammatory changes. The right inner lower leg has a small area with a yellow blister with surrounding erythematous skin amna uring about 2 cm in diameter. The incision is healed without dehiscence or drainage. LABORATORY: White cell count 20, now 15.7, hemoglobin 9.8, platelets 492, 2% bands, 81% neutrophils down to 74% at this time. Creatinine 0.84 and a urinalysis with 11-20 WBCs. The operative note from today was reviewed. Packing removed, wound inspected. The wound was felt to extend deeply almost to the level of the lateral thigh hardware. There is some granulation tissue b eginning to cover the hardware by digital manipulation, there is some necrotic fat, which was debride d with a scalpel. The wound was irrigated and negative pressure dressing applied. There is a femur x-ray from yesterday with no abnormalities other than the hardware for the fixation. There is an ank le x-ray with postoperative findings and a chest x-ray with no evidence of acute findings. ASSESSMENT: Obesity, aortic valve replacement, hypertension, coronary artery disease, and fall with distal left femur fracture and left ankle fracture status post open reduction internal fixation with subsequent development of inflammatory changes which required I&D and readmission. Cultures at that time did not reveal any organisms, with normal skin dulce maria. The patient had been discharged on merope nem and now returns with deterioration of the wound appearance with slough and some areas of necrosis , that incision was debrided. I spoke with the nursing staff at the long term and they reported t o me that MRSA has been retrieved from the deep wound. At this point, we will add vancomycin and tra nsition to Rocephin from meropenem. C. diff test has been submitted I believe. Continue wound care and transfer whenever she stabilizes after review of the most recent cultures obtained during this th ird procedure.
[2017-08-15] MEDS ORDERED: Sodium Chloride 0.9% 500 ML IV SCH (15:00)
--- NOTE | 2017-08-15 15:00 | PDOC.PN ---
- Subjective Encounter Start Date: 08/15/17 Encounter Start Time: 12:10 Subjective: pt up in bed no complains - Objective Resuscitation Status: Resuscitation Status FULL:Full Resuscitation Vital Signs & Weight: Vital Signs (12 hours) Temp Pulse Resp BP Pulse Ox 08/15/17 11:51 98.4 F 108 H 18 117/47 L 90 L 08/15/17 08:30 98.2 F 100 18 106/57 L 93 L 08/15/17 07:35 98.2 F 100 18 91/54 L 93 L 08/15/17 05:11 99.8 F H 107 H 18 123/49 L 94 L Weight Weight 262 lb 14.4 oz I&O: 08/14/17 08/15/17 08/16/17 06:59 06:59 06:59 Intake Total 1505 Output Total 1250 Balance 255 Result Diagrams: 08/15/17 05:36 08/15/17 05:36 Phys Exam - Physical Examination pt appears dehydated Neck: no nodes Respiratory: no wheezing, no rales tachcardia Gastrointestinal: soft, non-tender left thigh wound in wound vac Neurological: non-focal Dx/Plan - Plan * . 1) possible infection of left femur 2) diarrhea ? cdiff 3) leukocytosis 4) htn 5) dehydation 6) aotic valve replacement 7) obesity plan: pt s/p I&D 08/15, ID consulted for abx managment. cdiff stool to be collected improving leukocyosis pt is hypotensive will hold bp meds and will given 5ooml bolus since clinically she appear dehydrated. Review of Systems - Review of Systems Eyes: negative: Pain, Vision Change, Conjunctivae Inflammation, Eyelid Inflammation, Redness, Other ENT: negative: Ear Pain, Ear Discharge, Nose Pain, Nose Discharge, Nose Congestion, Mouth Pain, Mouth Swelling, Throat Pain, Throat Swelling, Other Respiratory: negative: Cough, Dry, Shortness of Breath, Hemoptysis, SOB with Excertion, Pleuritic Pain, Sputum, Wheezing Cardiovascular: negative: chest pain, palpitations, orthopnea, paroxysmal nocturnal dyspnea, edema, light headedness, other Gastrointestinal: negative: Nausea, Vomiting, Abdominal Pain, Diarrhea, Constipation, Melena, Hematochezia, Other Genitourinary: negative: Dysuria, Frequency, Incontinence, Hematuria, Retention , Other - Medications/Allergies Allergies/Adverse Reactions: Allergies Allergy/AdvReac Type Severity Reaction Status Date / Time pineapple [Pineapple] Allergy Verified 07/05/17 02:21 Medications: Current Medications Acetaminophen (Tylenol) 1,000 mg PO Q4H PRN PRN Reason: Headache/Fever or Pain Hydrocodone Bitart/Acetaminophen ([place] 5/325) 1 tab PO Q4H PRN PRN Reason: Moderate Pain (4-6) Hydrocodone Bitart/Acetaminophen ([place] 5/325) 2 tab PO Q4H PRN PRN Reason: Severe Pain (7-10) Last Admin: 08/15/17 04:50 Dose: 2 tab Carvedilol (Coreg) 6.25 mg PO BID-WM [facility] Cefazolin Sodium (Ancef) 2 gm SLOW IVP ONCALL-OR [facility] Famotidine (Pepcid) 20 mg PO BID [facility] Last Admin: 08/15/17 08:47 Dose: 20 mg Fentanyl (Sublimaze) 25 mcg SLOW IVP Q2H PRN PRN Reason: Breakthrough Pain Last Admin: 08/15/17 09:57 Dose: 25 mcg Furosemide (Lasix) 20 mg PO DAILY [facility] Sodium Chloride (Normal Saline 0.9%) 1,000 mls @ 75 mls/hr IV .[id number] [facility] Last Admin: 08/15/17 05:15 Dose: 1,000 mls Ceftriaxone Sodium 2 gm/ (Sodium Chloride) 100 mls @ 200 mls/hr IVPB Q24HR@ 1400 [facility] Last Admin: 08/15/17 14:01 Dose: 100 mls Vancomycin HCl 1.25 gm/ Sodium (Chloride) 250 mls @ 166.67 mls/hr IVPB 0300, 1500 [facility] Vancomycin HCl 2 gm/ Sodium (Chloride) 500 mls @ 250 mls/hr IVPB 1500 [facility] Stop: 08/15/17 18:00 Last Admin: 08/15/17 14:01 Dose: 500 mls Sodium Chloride (Normal Saline 0.9%) 500 mls @ 999 mls/hr IV .Q31M [facility] Stop: 08/15/17 15:30 Lisinopril (Zestril) 20 mg PO DAILY [facility] Miscellaneous Medication (Pharmacy To Dose) 1 each IVPB PRN PRN PRN Reason: Pharmacy to dose Ondansetron HCl (Zofran) 4 mg IVP Q6H PRN PRN Reason: Nausea/Vomiting Senna (Senokot) 1 tab PO HSPRN PRN PRN Reason: Constipation Tramadol HCl (Ultram) 50 mg PO Q4H PRN PRN Reason: Moderate Pain (4-6) Tramadol HCl (Ultram) 100 mg PO Q4H PRN PRN Reason: Severe Pain (7-10)
[2017-08-16] MEDS: Vancomycin HCl 1.25 GM in Sodium Chloride 0.9% 250 ML 250 ML IVPB SCH ×2 (03:26→14:58)
[2017-08-16] MEDS: Sodium Chloride 0.9% 1,000 ML IV SCH ×2 (07:15→17:05)
[2017-08-16] MEDS ORDERED: metroNIDAZOLE 500 MG in Premix Bag 1 BAG IVPB SCH ×2 (07:50→14:00)
[2017-08-16] MEDS: metroNIDAZOLE 500 MG in Premix Bag 1 BAG IVPB SCH ×2 (09:14→17:05)
[2017-08-16] MEDS: Lisinopril 20 MG TAB PO SCH (09:15)
[2017-08-16] MEDS: Famotidine 20 MG TAB PO SCH ×2 (09:15→21:14)
[2017-08-16] MEDS: Furosemide 20 MG TAB PO SCH (09:15)
[2017-08-16] MEDS: Carvedilol 6.25 MG TAB PO SCH ×2 (09:16→17:05)
[2017-08-16 09:29] LABS: #Eosinphils 0.2 thou/uL (0.0-0.7); #Monocytes 1.9 thou/uL (0.11-0.59); #Neutrophils 11.6 thou/uL (1.40-6.50); %Basophils 0.3 % (0.0-1.0); %Eosinophils 1.5 % (0.0-10.0); %Lymphocytes 6.9 % (21.0-51.0); %Monocytes 12.9 % (0.0-10.0); %Neutrophils 78.4 % (42.0-75.0); Hemoglobin 10.1 g/dL (12.0-16.0); Mean Corpuscular HGB CONC 31.2 g/dL (32.0-36.0); Mean Corpuscular Hemoglobin 28.7 pg (27.0-31.0); Mean Corpuscular Volume 91.8 fl (81.0-99.0); Mean Platelet Volume 6.2 fL (7.4-10.4); Platelet Count 473 thou/uL (130-400); RBC Distribution Width 16.2 % (11.5-14.5); Red Blood Cell (RBC) Count 3.51 mill/uL (4.20-5.40); White Blood Cell (WBC) Count 14.8 thou/uL (4.8-10.8)
[2017-08-16 09:48] LABS: Anion Gap 11 mmol/L (10-20); BUN (Urea Nitrogen) 18 mg/dL (9.8-20.1); Calc. Creatinine Clearance 121 mL/min (70-130); Calcium 8.4 mg/dL (7.8-10.44); Carbon Dioxide 26 mmol/L (23-31); Chloride 102 mmol/L (98-107); Estimated GFR-MDRD 72; Glucose 117 mg/dL (83-110); Magnesium 1.4 mg/dL (1.6-2.6); Potassium 4.1 mmol/L (3.5-5.1); Sodium 135 mmol/L (136-145)
[2017-08-16] MEDS: cefTRIAXone\\ROCEPHIN 2 GM in Sodium Chloride 0.9% 100 ML IVPB SCH (14:58)
--- NOTE | 2017-08-16 15:21 | PDOC.PN ---
- Subjective Encounter Start Date: 08/16/17 Encounter Start Time: 10:15 Subjective: pt up in bed asleep, easily arousable. pt states diarrhea has improved - Objective Resuscitation Status: Resuscitation Status FULL:Full Resuscitation Vital Signs & Weight: Vital Signs (12 hours) Temp Pulse Resp BP Pulse Ox 08/16/17 12:14 97.8 F 84 18 137/64 92 L 08/16/17 08:00 98.8 F 93 18 94 L 08/16/17 07:50 98.8 F 93 18 189/69 H 94 L 08/16/17 06:16 97.9 F 97 18 144/70 H 93 L Weight Admit Weight 262 lb Weight 262 lb 14.4 oz I&O: 08/15/17 08/16/17 08/17/17 06:59 06:59 06:59 Intake Total 1505 3885 Output Total 1250 975 Balance 255 2910 Result Diagrams: 08/19/17 08:41 08/19/17 08:41 Phys Exam - Physical Examination HEENT: PERRLA Neck: no nodes, no JVD Respiratory: no wheezing, no rales Cardiovascular: RRR, no significant murmur Gastrointestinal: soft, non-tender mild to lower ext, wound vac to right thigh. Dx/Plan - Plan 1) possible infection of left femur 2) cdiff 3) leukocytosis 4) htn 5) dehydation 6) aotic valve replacement 7) obesity plan: pt s/p I&D 08/15, ID consulted for abx management. cx from I&D indicated gram neg rods cdiff positive pt on flagyl improving leukocyosis pt's heart rate and bp has improved. * . Review of Systems - Review of Systems Eyes: negative: Pain, Vision Change, Conjunctivae Inflammation, Eyelid Inflammation, Redness, Other ENT: negative: Ear Pain, Ear Discharge, Nose Pain, Nose Discharge, Nose Congestion, Mouth Pain, Mouth Swelling, Throat Pain, Throat Swelling, Other Respiratory: negative: Cough, Dry, Shortness of Breath, Hemoptysis, SOB with Excertion, Pleuritic Pain, Sputum, Wheezing Cardiovascular: negative: chest pain, palpitations, orthopnea, paroxysmal nocturnal dyspnea, edema, light headedness, other Gastrointestinal: negative: Nausea, Vomiting, Abdominal Pain, Diarrhea, Constipation, Melena, Hematochezia, Other Genitourinary: negative: Dysuria, Frequency, Incontinence, Hematuria, Retention , Other - Medications/Allergies Allergies/Adverse Reactions: Allergies Allergy/AdvReac Type Severity Reaction Status Date / Time pineapple [Pineapple] Allergy Verified 07/05/17 02:21 Medications: Current Medications Acetaminophen (Tylenol) 1,000 mg PO Q4H PRN PRN Reason: Headache/Fever or Pain Hydrocodone Bitart/Acetaminophen ([place] 5/325) 1 tab PO Q4H PRN PRN Reason: Moderate Pain (4-6) Last Admin: 08/15/17 21:01 Dose: 1 tab Hydrocodone Bitart/Acetaminophen ([place] 5/325) 2 tab PO Q4H PRN PRN Reason: Severe Pain (7-10) Last Admin: 08/15/17 04:50 Dose: 2 tab Carvedilol (Coreg) 6.25 mg PO BID-[facility] Last Admin: 08/16/17 09:16 Dose: 6.25 mg Cefazolin Sodium (Ancef) 2 gm SLOW IVP ONCALL-OR [facility] Famotidine (Pepcid) 20 mg PO BID [facility] Last Admin: 08/16/17 09:15 Dose: 20 mg Fentanyl (Sublimaze) 25 mcg SLOW IVP Q2H PRN PRN Reason: Breakthrough Pain Last Admin: 08/15/17 09:57 Dose: 25 mcg Furosemide (Lasix) 20 mg PO DAILY [facility] Last Admin: 08/16/17 09:15 Dose: 20 mg Sodium Chloride (Normal Saline 0.9%) 1,000 mls @ 75 mls/hr IV .[id number] [facility] Last Admin: 08/16/17 07:15 Dose: 1,000 mls Ceftriaxone Sodium 2 gm/ (Sodium Chloride) 100 mls @ 200 mls/hr IVPB Q24HR@ 1400 [facility] Last Admin: 08/16/17 14:58 Dose: 100 mls Vancomycin HCl 1.25 gm/ Sodium (Chloride) 250 mls @ 166.67 mls/hr IVPB 0300, 1500 [facility] Last Admin: 08/16/17 14:58 Dose: 250 mls Metronidazole 500 mg/ Device 100 mls @ 100 mls/hr IVPB Q8H [facility] Last Admin: 08/16/17 09:14 Dose: 100 mls Magnesium Sulfate 1 gm/ Sodium (Chloride) 102 mls @ 100 mls/hr IVPB NOW [facility] Stop: 08/16/17 17:30 Lisinopril (Zestril) 20 mg PO DAILY [facility] Last Admin: 08/16/17 09:15 Dose: 20 mg Miscellaneous Medication (Pharmacy To Dose) 1 each IVPB PRN PRN PRN Reason: Pharmacy to dose Ondansetron HCl (Zofran) 4 mg IVP Q6H PRN PRN Reason: Nausea/Vomiting Senna (Senokot) 1 tab PO HSPRN PRN PRN Reason: Constipation Sodium Chloride (Flush - Normal Saline) 10 ml IVF Q12HR [facility] Last Admin: 08/16/17 09:16 Dose: 10 ml Sodium Chloride (Flush - Normal Saline) 10 ml IVF PRN PRN PRN Reason: Saline Flush Tramadol HCl (Ultram) 50 mg PO Q4H PRN PRN Reason: Moderate Pain (4-6) Tramadol HCl (Ultram) 100 mg PO Q4H PRN PRN Reason: Severe Pain (7-10)
--- NOTE | 2017-08-16 18:00 | PRG ---
DATE OF SERVICE: 08/16/2017 SUBJECTIVE: She is having diarrhea. Left thigh wound with negative pressure dressing. No respirato ry symptoms. OBJECTIVE: VITAL SIGNS: Normal except for slight elevation of systolic blood pressure. GENERAL: Appears chronically ill, awake and oriented in no acute distress. LUNGS: With symmetric clear breath sounds. HEART: S1 and S2, regular rate. ABDOMEN: With a prominent panniculus, somewhat distended. Bowel sounds are normal. EXTREMITIES: The left thigh wound site is about the same. NEUROLOGIC: No changes in neurological exam. LABORATORY DATA: White cell count 14.8, hemoglobin 10 and platelets 473. Sodium 135 and creatinine 0.78. Microbiology: We have 2 gram-negative rods isolated from the femur cultures. The previous cu ltures with negative culture results from 07/20, except for a normal mixed skin dulce maria. The C. diff i n stool was positive, both antigen and toxin. ASSESSMENT: Obesity, aortic valve replacement, hypertension, coronary artery disease, pacemaker, fal l and femur and ankle fracture, left side open reduction and internal fixation, subsequent inflammato ry changes, status post incision and drainage of the left femur site, discharged on meropenem and now returns with deterioration of the wound. Methicillin-resistant Staphylococcus aureus was retrieved and now I find out that also highly resistant Acinetobacter was retrieved from the cultures done at [facility]. Here, we have 2 different organisms retrieved. DISCUSSION: Depending on the susceptibilities of Acinetobacter, we might be forced to add colistin t o the regimen. Colistin can sometimes be associated with renal insufficiency and would complicate ma nagement for this lady. Now, she has C. difficile and we will switch her to oral vancomycin, which i s more effective than Flagyl, has a treatment of choice together with Dificid.
[2017-08-16] MEDS: Meropenem 1 GM in Sodium Chloride 0.9% 100 ML IVPB SCH (21:14)
[2017-08-16] MEDS: Vancomycin HCl 25 MG/ML Oral PO SCH (21:21)
[2017-08-17] MEDS: metroNIDAZOLE 500 MG in Premix Bag 1 BAG IVPB SCH ×3 (01:07→16:43)
[2017-08-17] MEDS: Vancomycin HCl 1.25 GM in Sodium Chloride 0.9% 250 ML 250 ML IVPB SCH ×2 (02:15→14:04)
[2017-08-17] MEDS: Sodium Chloride 0.9% 1,000 ML IV SCH ×2 (02:18→10:28)
[2017-08-17 02:30] LABS: Vancomycin, Trough 20.4 ug/mL
[2017-08-17] MEDS: Meropenem 1 GM in Sodium Chloride 0.9% 100 ML IVPB SCH ×4 (06:15→23:00)
[2017-08-17] MEDS: Furosemide 20 MG TAB PO SCH (08:41)
[2017-08-17] MEDS: Famotidine 20 MG TAB PO SCH ×2 (08:41→22:23)
[2017-08-17] MEDS: Lisinopril 20 MG TAB PO SCH (08:41)
[2017-08-17] MEDS: Carvedilol 6.25 MG TAB PO SCH (08:41)
[2017-08-17] MEDS: Vancomycin HCl 25 MG/ML Oral PO SCH ×4 (08:44→22:22)
[2017-08-17] MEDS ORDERED: Lisinopril 20 MG TAB PO SCH (09:00)
[2017-08-17] MEDS ORDERED: Carvedilol 6.25 MG TAB PO SCH (09:00)
[2017-08-17] MEDS: Fentanyl 100 MCG/2 ML VIAL SLOW IVP PRN (10:27)
--- NOTE | 2017-08-17 12:04 | PDOC.PN ---
- Subjective Encounter Start Date: 08/17/17 Encounter Start Time: 11:00 Subjective: pt up in bed no complains, diarrhea has stopped - Objective Resuscitation Status: Resuscitation Status FULL:Full Resuscitation Vital Signs & Weight: Vital Signs (12 hours) Temp Pulse Resp BP BP Pulse Ox 08/17/17 08:41 161/66 H 08/17/17 07:55 98.2 F 81 20 161/66 H 97 08/17/17 04:35 98.4 F 86 15 149/67 H 93 L 08/17/17 00:32 98.5 F 85 19 135/71 96 Weight Admit Weight 262 lb Weight 262 lb 14.4 oz I&O: 08/16/17 08/17/17 08/18/17 06:59 06:59 06:59 Intake Total 3885 2180 1505 Output Total 975 850 425 Balance 2910 1330 1080 Result Diagrams: 08/16/17 09:10 08/16/17 09:10 Phys Exam - Physical Examination HEENT: PERRLA Neck: no nodes Respiratory: no wheezing, no rales Cardiovascular: RRR Gastrointestinal: soft, non-tender Musculoskeletal: edema present left thigh dressing intact Dx/Plan - Plan 1) possible infection of left femur 2) cdiff 3) leukocytosis 4) htn 5) dehydation 6) aotic valve replacement 7) obesity plan: pt s/p I&D 08/15, ID consulted for abx management. cx from I&D indicated gram neg rods on abx cdiff positive pt on flagyl and vanco improving leukocyosis pt's heart rate and bp has improved. . Review of Systems - Review of Systems Eyes: negative: Pain, Vision Change, Conjunctivae Inflammation, Eyelid Inflammation, Redness, Other ENT: negative: Ear Pain, Ear Discharge, Nose Pain, Nose Discharge, Nose Congestion, Mouth Pain, Mouth Swelling, Throat Pain, Throat Swelling, Other Respiratory: negative: Cough, Dry, Shortness of Breath, Hemoptysis, SOB with Excertion, Pleuritic Pain, Sputum, Wheezing Cardiovascular: negative: chest pain, palpitations, orthopnea, paroxysmal nocturnal dyspnea, edema, light headedness, other Gastrointestinal: negative: Nausea, Vomiting, Abdominal Pain, Diarrhea, Constipation, Melena, Hematochezia, Other Genitourinary: negative: Dysuria, Frequency, Incontinence, Hematuria, Retention , Other - Medications/Allergies Allergies/Adverse Reactions: Allergies Allergy/AdvReac Type Severity Reaction Status Date / Time pineapple [Pineapple] Allergy Verified 07/05/17 02:21 Medications: Current Medications Acetaminophen (Tylenol) 1,000 mg PO Q4H PRN PRN Reason: Headache/Fever or Pain Hydrocodone Bitart/Acetaminophen ([place] 5/325) 1 tab PO Q4H PRN PRN Reason: Moderate Pain (4-6) Last Admin: 08/15/17 21:01 Dose: 1 tab Hydrocodone Bitart/Acetaminophen ([place] 5/325) 2 tab PO Q4H PRN PRN Reason: Severe Pain (7-10) Last Admin: 08/15/17 04:50 Dose: 2 tab Aspirin (Aspirin Chewable) 81 mg PO DAILY [facility] Last Admin: 08/17/17 10:26 Dose: 81 mg Carvedilol (Coreg) 25 mg PO BID-WM [facility] Cefazolin Sodium (Ancef) 2 gm SLOW IVP ONCALL-OR [facility] Famotidine (Pepcid) 20 mg PO BID [facility] Last Admin: 08/17/17 08:41 Dose: 20 mg Fentanyl (Sublimaze) 25 mcg SLOW IVP Q2H PRN PRN Reason: Breakthrough Pain Last Admin: 08/17/17 10:27 Dose: 25 mcg Furosemide (Lasix) 20 mg PO DAILY [facility] Last Admin: 08/17/17 08:41 Dose: 20 mg Vancomycin HCl 1.25 gm/ Sodium (Chloride) 250 mls @ 166.67 mls/hr IVPB 0300, 1500 [facility] Last Admin: 08/17/17 02:15 Dose: 250 mls Metronidazole 500 mg/ Device 100 mls @ 100 mls/hr IVPB Q8H [facility] Last Admin: 08/17/17 08:42 Dose: 100 mls Meropenem 1 gm/ Sodium (Chloride) 100 mls @ 200 mls/hr IVPB Q8HR [facility] Last Admin: 08/17/17 06:15 Dose: 100 mls Sodium Chloride (Normal Saline 0.9%) 1,000 mls @ 50 mls/hr IV .Q20H [facility] Last Admin: 08/17/17 10:28 Dose: Not Given Lisinopril (Zestril) 20 mg PO DAILY [facility] Last Admin: 08/17/17 08:41 Dose: 20 mg Miscellaneous Medication (Pharmacy To Dose) 1 each IVPB PRN PRN PRN Reason: Pharmacy to dose Ondansetron HCl (Zofran) 4 mg IVP Q6H PRN PRN Reason: Nausea/Vomiting Senna (Senokot) 1 tab PO HSPRN PRN PRN Reason: Constipation Sodium Chloride (Flush - Normal Saline) 10 ml IVF Q12HR [facility] Last Admin: 08/17/17 08:45 Dose: Not Given Sodium Chloride (Flush - Normal Saline) 10 ml IVF PRN PRN PRN Reason: Saline Flush Tramadol HCl (Ultram) 50 mg PO Q4H PRN PRN Reason: Moderate Pain (4-6) Tramadol HCl (Ultram) 100 mg PO Q4H PRN PRN Reason: Severe Pain (7-10) Vancomycin HCl (First Vancomycin) 125 mg PO QID [facility] Last Admin: 08/17/17 08:44 Dose: 125 mg
[2017-08-17] MEDS: Carvedilol 25 MG TAB PO SCH (16:43)
--- NOTE | 2017-08-17 17:46 | PRG ---
DATE OF SERVICE: 08/17/2017 SUBJECTIVE: Gia still appears more comfortable. She is not diaphoretic. She is comfortable at res t, oriented, had less bowel movement earlier this morning, a small amount of liquid stool. No cramps . No chest pain. She had a wound changed in the left thigh region. The wound photo notes were revi ewed and she has fresh wound margins with red tissue covering all the base of the wound of the wound. OBJECTIVE: LUNGS: Clear. CARDIAC: S1, S2, regular rate. No S3 or S4. VITAL SIGNS: The temperature is normal, BP 120/64. LABORATORY DATA: White cell count of 14.8 yesterday, hemoglobin 10, platelets 473 and creatinine 0.7 8. Microbiology with Proteus mirabilis, Acinetobacter baumannii and coagulase-negative Staph from th e sample obtained by Dr. Lazaro. This is described the left femur wound culture. The susceptibili ty to tobramycin, trimethoprim, and sulfamethoxazole on the part of the Acinetobacter resistant to ge ntamicin. The Proteus mirabilis susceptible to all the antimicrobials except for cefoxitin. We will add trimethoprim and sulfamethoxazole to regimen or tobramycin, probably trimethoprim sulfa. Contin ue meropenem. Discontinue IV vancomycin. Continue oral vancomycin for management of C. difficile in fection.
[2017-08-17] MEDS ORDERED: MEROPENEM 1 GM/50 ML 1 GM in Premix Bag 1 BAG IVPB SCH (22:00)
[2017-08-17] MEDS: Sulfameth/Trimethoprim DS 800-160mg TAB PO SCH (22:22)
[2017-08-18] MEDS: metroNIDAZOLE 500 MG in Premix Bag 1 BAG IVPB SCH ×2 (01:42→09:10)
[2017-08-18] MEDS: Vancomycin HCl 1.25 GM in Sodium Chloride 0.9% 250 ML 250 ML IVPB SCH (04:05)
[2017-08-18] MEDS: Sodium Chloride 0.9% 1,000 ML IV SCH ×2 (06:22→17:45)
[2017-08-18] MEDS: Meropenem 1 GM in Sodium Chloride 0.9% 100 ML IVPB SCH ×3 (06:32→21:10)
[2017-08-18] MEDS: Lisinopril 20 MG TAB PO SCH (09:10)
[2017-08-18] MEDS: Famotidine 20 MG TAB PO SCH ×2 (09:10→21:05)
[2017-08-18] MEDS: Sulfameth/Trimethoprim DS 800-160mg TAB PO SCH ×2 (09:10→21:06)
[2017-08-18] MEDS: Furosemide 20 MG TAB PO SCH (09:10)
[2017-08-18] MEDS: Vancomycin HCl 25 MG/ML Oral PO SCH ×4 (09:10→21:06)
[2017-08-18] MEDS: Carvedilol 25 MG TAB PO SCH ×2 (09:11→17:45)
[2017-08-18] MEDS: HYDROcodone/Acetaminophen 5/325 mg Tablet PO PRN (12:07)
--- NOTE | 2017-08-18 13:10 | RAD ---
AP VIEW CHEST: HISTORY: Shortness of breath. FINDINGS: AP view chest is obtained on 08/18/17. Comparison is made to the previous exam from 08/14/17. AP view chest demonstrates a dual-lead intracardiac pacing device. The lungs demonstrate some modera te pulmonary vascular congestion. No evidence of effusions, pneumonia, or pneumothorax seen. IMPRESSION: Pulmonary vascular congestion; otherwise, unremarkable AP view chest. POS: [facility]
[2017-08-18 14:21] LABS: Vancomycin, Trough 26.6 ug/mL
[2017-08-18] MEDS: Heparin 5,000 UNITS/ML VIAL SC SCH ×4 (15:22→21:06)
--- NOTE | 2017-08-18 22:38 | PDOC.PN ---
- Subjective Encounter Start Date: 08/18/17 Encounter Start Time: 08:45 Subjective: pt up in bed feels better, diarrhea has stopped - Objective Resuscitation Status: Resuscitation Status FULL:Full Resuscitation Vital Signs & Weight: Vital Signs (12 hours) Temp Pulse Resp BP Pulse Ox 08/18/17 20:00 99.0 F 86 16 95 08/18/17 19:44 99.0 F 86 16 147/70 H 95 08/18/17 15:29 97.1 F L 75 15 175/70 H 91 L 08/18/17 11:59 98.4 F 73 18 135/63 91 L Weight Admit Weight 262 lb Weight 362 lb 9 oz I&O: 08/17/17 08/18/17 08/19/17 06:59 06:59 06:59 Intake Total 2180 4785 2425 Output Total 850 1775 775 Balance 1330 3010 1650 Result Diagrams: 08/16/17 09:10 08/16/17 09:10 Phys Exam - Physical Examination HEENT: PERRLA, moist MMs, sclera anicteric, TM's clear, oral pharynx no lesions , 2+ tonsils mild crackles to bases Cardiovascular: RRR, no significant murmur, no rub, gallop, irregular Gastrointestinal: soft, non-tender, no distention, positive bowel sounds left thigh wound vac Neurological: non-focal, normal sensation, moves all 4 limbs Dx/Plan - Plan * 1) possible infection of left femur 2) cdiff 3) leukocytosis 4) htn 5) dehydation 6) aotic valve replacement 7) obesity plan: pt s/p I&D 08/15, ID consulted for abx management. cx from I&D indicated Acinetobactor, proteus and coagulase neg staph. cdiff positive pt on vanco improving leukocyosis pt's heart rate and bp has improved. will get cxr today Review of Systems - Review of Systems Eyes: negative: Pain, Vision Change, Conjunctivae Inflammation, Eyelid Inflammation, Redness, Other ENT: negative: Ear Pain, Ear Discharge, Nose Pain, Nose Discharge, Nose Congestion, Mouth Pain, Mouth Swelling, Throat Pain, Throat Swelling, Other Respiratory: negative: Cough, Dry, Shortness of Breath, Hemoptysis, SOB with Excertion, Pleuritic Pain, Sputum, Wheezing Cardiovascular: negative: chest pain, palpitations, orthopnea, paroxysmal nocturnal dyspnea, edema, light headedness, other Gastrointestinal: negative: Nausea, Vomiting, Abdominal Pain, Diarrhea, Constipation, Melena, Hematochezia, Other Musculoskeletal: Leg Pain - Medications/Allergies Allergies/Adverse Reactions: Allergies Allergy/AdvReac Type Severity Reaction Status Date / Time pineapple [Pineapple] Allergy Verified 07/05/17 02:21 Medications: Current Medications Acetaminophen (Tylenol) 1,000 mg PO Q4H PRN PRN Reason: Headache/Fever or Pain Hydrocodone Bitart/Acetaminophen ([place] 5/325) 1 tab PO Q4H PRN PRN Reason: Moderate Pain (4-6) Last Admin: 08/18/17 12:07 Dose: 1 tab Hydrocodone Bitart/Acetaminophen ([place] 5/325) 2 tab PO Q4H PRN PRN Reason: Severe Pain (7-10) Last Admin: 08/15/17 04:50 Dose: 2 tab Aspirin (Aspirin Chewable) 81 mg PO DAILY [facility] Last Admin: 08/18/17 09:10 Dose: 81 mg Carvedilol (Coreg) 25 mg PO BID-[facility] Last Admin: 08/18/17 17:45 Dose: 25 mg Cefazolin Sodium (Ancef) 2 gm SLOW IVP ONCALL-OR [facility] Famotidine (Pepcid) 20 mg PO BID [facility] Last Admin: 08/18/17 21:05 Dose: 20 mg Fentanyl (Sublimaze) 25 mcg SLOW IVP Q2H PRN PRN Reason: Breakthrough Pain Last Admin: 08/17/17 10:27 Dose: 25 mcg Furosemide (Lasix) 20 mg PO DAILY [facility] Last Admin: 08/18/17 09:10 Dose: 20 mg Heparin Sodium (Porcine) (Heparin) 5,000 units SC TID [facility] Last Admin: 08/18/17 21:06 Dose: 5,000 units Sodium Chloride (Normal Saline 0.9%) 1,000 mls @ 50 mls/hr IV .Q20H [facility] Last Admin: 08/18/17 17:45 Dose: 1,000 mls Meropenem 1 gm/ Sodium (Chloride) 100 mls @ 100 mls/hr IVPB Q8HR [facility] Last Admin: 08/19/17 05:12 Dose: 100 mls Vancomycin HCl 1 gm/ Device 200 mls @ 200 mls/hr IVPB 0300,1500 [facility] Last Admin: 08/19/17 02:48 Dose: 200 mls Lisinopril (Zestril) 20 mg PO DAILY [facility] Last Admin: 08/18/17 09:10 Dose: 20 mg Miscellaneous Medication (Pharmacy To Dose) 1 each IVPB PRN PRN PRN Reason: Pharmacy to dose Ondansetron HCl (Zofran) 4 mg IVP Q6H PRN PRN Reason: Nausea/Vomiting Senna (Senokot) 1 tab PO HSPRN PRN PRN Reason: Constipation Sodium Chloride (Flush - Normal Saline) 10 ml IVF Q12HR [facility] Last Admin: 08/18/17 21:06 Dose: 10 ml Sodium Chloride (Flush - Normal Saline) 10 ml IVF PRN PRN PRN Reason: Saline Flush Tramadol HCl (Ultram) 50 mg PO Q4H PRN PRN Reason: Moderate Pain (4-6) Tramadol HCl (Ultram) 100 mg PO Q4H PRN PRN Reason: Severe Pain (7-10) Trimethoprim/Sulfamethoxazole (Bactrim Ds) 2 tab PO BID [facility] Last Admin: 08/18/17 21:06 Dose: 2 tab Vancomycin HCl (First Vancomycin) 125 mg PO QID [facility] Last Admin: 08/18/17 21:06 Dose: 125 mg
[2017-08-19] MEDS: Vancomycin HCl 1 GM in Premix Bag 1 BAG IVPB SCH ×2 (02:48→16:25)
[2017-08-19] MEDS: Meropenem 1 GM in Sodium Chloride 0.9% 100 ML IVPB SCH ×2 (05:12→13:40)
[2017-08-19 08:49] LABS: #Eosinphils 0.3 thou/uL (0.0-0.7); #Lymphocytes 0.8 thou/uL (1.20-3.40); #Monocytes 1.3 thou/uL (0.11-0.59); #Neutrophils 11.1 thou/uL (1.40-6.50); %Basophils 0.3 % (0.0-1.0); %Eosinophils 2.1 % (0.0-10.0); %Monocytes 9.7 % (0.0-10.0); Hemoglobin 9.8 g/dL (12.0-16.0); Mean Corpuscular HGB CONC 32.2 g/dL (32.0-36.0); Mean Corpuscular Hemoglobin 28.9 pg (27.0-31.0); Mean Corpuscular Volume 89.7 fl (81.0-99.0); Mean Platelet Volume 6.2 fL (7.4-10.4); Platelet Count 540 thou/uL (130-400); RBC Distribution Width 16.3 % (11.5-14.5); Red Blood Cell (RBC) Count 3.38 mill/uL (4.20-5.40); White Blood Cell (WBC) Count 13.5 thou/uL (4.8-10.8)
[2017-08-19 09:09] LABS: Anion Gap 9 mmol/L (10-20); BUN (Urea Nitrogen) 16 mg/dL (9.8-20.1); Calc. Creatinine Clearance 141 mL/min (70-130); Calcium 8.4 mg/dL (7.8-10.44); Carbon Dioxide 25 mmol/L (23-31); Chloride 106 mmol/L (98-107); Estimated GFR-MDRD 60; Glucose 173 mg/dL (83-110); Magnesium 1.6 mg/dL (1.6-2.6); Phosphorus 2.8 mg/dL (2.3-4.7); Potassium 4.3 mmol/L (3.5-5.1); Sodium 136 mmol/L (136-145)
[2017-08-19] MEDS: Famotidine 20 MG TAB PO SCH ×2 (09:15→21:02)
[2017-08-19] MEDS: Lisinopril 20 MG TAB PO SCH (09:15)
[2017-08-19] MEDS: Heparin 5,000 UNITS/ML VIAL SC SCH ×6 (09:16→21:02)
[2017-08-19] MEDS: Vancomycin HCl 25 MG/ML Oral PO SCH ×4 (09:16→21:02)
[2017-08-19] MEDS: Carvedilol 25 MG TAB PO SCH ×2 (09:16→16:25)
[2017-08-19] MEDS: Sulfameth/Trimethoprim DS 800-160mg TAB PO SCH ×2 (09:16→21:02)
[2017-08-19] MEDS: Furosemide 20 MG TAB PO SCH (09:16)
--- NOTE | 2017-08-19 14:19 | PDOC.PN ---
- Subjective Encounter Start Date: 08/19/17 Encounter Start Time: 13:45 Subjective: pt up in bed no complains - Objective Resuscitation Status: Resuscitation Status FULL:Full Resuscitation Vital Signs & Weight: Vital Signs (12 hours) Temp Pulse Resp BP BP Pulse Ox 08/19/17 09:15 159/68 H 08/19/17 08:15 98.3 F 84 18 93 L 08/19/17 08:08 98.3 F 84 18 159/68 H 93 L 08/19/17 03:51 98.4 F 83 18 102/60 95 Weight Admit Weight 262 lb Weight 362 lb 9 oz I&O: 08/18/17 08/19/17 08/20/17 06:59 06:59 06:59 Intake Total 4785 3525 Output Total 1775 1475 Balance 3009 2049 Result Diagrams: 08/19/17 08:41 08/19/17 08:41 Phys Exam - Physical Examination HEENT: PERRLA, moist MMs, sclera anicteric, TM's clear, oral pharynx no lesions , 2+ tonsils Neck: no nodes, no JVD, supple, full ROM mild crackles to bases Cardiovascular: RRR, no significant murmur, no rub, gallop, irregular Gastrointestinal: soft, non-tender, no distention, positive bowel sounds left thigh wound vac Dx/Plan - Plan 1) possible infection of left femur 2) cdiff 3) leukocytosis 4) htn 5) dehydation 6) aotic valve replacement 7) obesity 8) pressure ulcers stage 3-4 plan: pt s/p I&D 08/15, ID consulted for abx management. cx from I&D indicated Acinetobactor, proteus and coagulase neg staph. cdiff positive pt on vanco improving leukocyosis pt's heart rate and bp has improved. mild pulmonary edema noted on cxr, pt on po lasix will give one dose of iv. Pt is bed bound. high risk for DVT and PE. on sq heparin. pt has a espitia cath due to pressure ulcer not healing. * . Review of Systems - Review of Systems ENT: negative: Ear Pain, Ear Discharge, Nose Pain, Nose Discharge, Nose Congestion, Mouth Pain, Mouth Swelling, Throat Pain, Throat Swelling, Other Respiratory: negative: Cough, Dry, Shortness of Breath, Hemoptysis, SOB with Excertion, Pleuritic Pain, Sputum, Wheezing Cardiovascular: negative: chest pain, palpitations, orthopnea, paroxysmal nocturnal dyspnea, edema, light headedness, other Gastrointestinal: negative: Nausea, Vomiting, Abdominal Pain, Diarrhea, Constipation, Melena, Hematochezia, Other Genitourinary: negative: Dysuria, Frequency, Incontinence, Hematuria, Retention , Other Musculoskeletal: negative: Neck Pain, Shoulder Pain, Arm Pain, Back Pain, Hand Pain, Leg Pain, Foot Pain, Other - Medications/Allergies Allergies/Adverse Reactions: Allergies Allergy/AdvReac Type Severity Reaction Status Date / Time pineapple [Pineapple] Allergy Verified 07/05/17 02:21 Medications: Current Medications Acetaminophen (Tylenol) 1,000 mg PO Q4H PRN PRN Reason: Headache/Fever or Pain Hydrocodone Bitart/Acetaminophen ([place] 5/325) 1 tab PO Q4H PRN PRN Reason: Moderate Pain (4-6) Last Admin: 08/18/17 12:07 Dose: 1 tab Hydrocodone Bitart/Acetaminophen ([place] 5/325) 2 tab PO Q4H PRN PRN Reason: Severe Pain (7-10) Last Admin: 08/15/17 04:50 Dose: 2 tab Aspirin (Aspirin Chewable) 81 mg PO DAILY [facility] Last Admin: 08/19/17 09:16 Dose: 81 mg Carvedilol (Coreg) 25 mg PO BID-[facility] Last Admin: 08/19/17 09:16 Dose: 25 mg Cefazolin Sodium (Ancef) 2 gm SLOW IVP ONCALL-OR [facility] Famotidine (Pepcid) 20 mg PO BID [facility] Last Admin: 08/19/17 09:15 Dose: 20 mg Fentanyl (Sublimaze) 25 mcg SLOW IVP Q2H PRN PRN Reason: Breakthrough Pain Last Admin: 08/17/17 10:27 Dose: 25 mcg Ferrous Sulfate (Feosol) 325 mg PO BID [facility] Furosemide (Lasix) 20 mg PO DAILY [facility] Last Admin: 08/19/17 09:16 Dose: 20 mg Furosemide (Lasix) 40 mg SLOW IVP ONE [facility] Stop: 08/19/17 18:00 Heparin Sodium (Porcine) (Heparin) 5,000 units SC TID [facility] Last Admin: 08/19/17 09:16 Dose: 5,000 units Sodium Chloride (Normal Saline 0.9%) 1,000 mls @ 50 mls/hr IV .Q20H [facility] Last Admin: 08/18/17 17:45 Dose: 1,000 mls Meropenem 1 gm/ Sodium (Chloride) 100 mls @ 100 mls/hr IVPB Q8HR [facility] Last Admin: 08/19/17 13:40 Dose: 100 mls Vancomycin HCl 1 gm/ Device 200 mls @ 200 mls/hr IVPB 0300,1500 [facility] Last Admin: 08/19/17 02:48 Dose: 200 mls Lisinopril (Zestril) 20 mg PO DAILY [facility] Last Admin: 08/19/17 09:15 Dose: 20 mg Miscellaneous Medication (Pharmacy To Dose) 1 each IVPB PRN PRN PRN Reason: Pharmacy to dose Ondansetron HCl (Zofran) 4 mg IVP Q6H PRN PRN Reason: Nausea/Vomiting Senna (Senokot) 1 tab PO HSPRN PRN PRN Reason: Constipation Sodium Chloride (Flush - Normal Saline) 10 ml IVF Q12HR [facility] Last Admin: 08/19/17 09:16 Dose: Not Given Sodium Chloride (Flush - Normal Saline) 10 ml IVF PRN PRN PRN Reason: Saline Flush Tramadol HCl (Ultram) 50 mg PO Q4H PRN PRN Reason: Moderate Pain (4-6) Tramadol HCl (Ultram) 100 mg PO Q4H PRN PRN Reason: Severe Pain (7-10) Trimethoprim/Sulfamethoxazole (Bactrim Ds) 2 tab PO BID [facility] Last Admin: 08/19/17 09:16 Dose: 2 tab Vancomycin HCl (First Vancomycin) 125 mg PO QID [facility] Last Admin: 08/19/17 13:40 Dose: 125 mg
[2017-08-19] MEDS ORDERED: Nystatin Powder 15 GM BOT TOP PRN (14:23)
[2017-08-19] MEDS ORDERED: Furosemide 40 MG/4 ML VIAL SLOW IVP SCH (15:00)
[2017-08-19] MEDS: Ferrous Sulfate 325 MG TAB PO SCH (21:02)
[2017-08-19] MEDS: MEROPENEM 1 GM/50 ML 1 GM in Premix Bag 1 BAG IVPB SCH (21:08)
[2017-08-19] MEDS: Sodium Chloride 0.9% 1,000 ML IV SCH (21:09)
[2017-08-20] MEDS: Vancomycin HCl 1 GM in Premix Bag 1 BAG IVPB SCH (03:34)
[2017-08-20] MEDS: MEROPENEM 1 GM/50 ML 1 GM in Premix Bag 1 BAG IVPB SCH ×3 (05:32→21:45)
[2017-08-20] MEDS: Lisinopril 20 MG TAB PO SCH (09:18)
[2017-08-20] MEDS: Famotidine 20 MG TAB PO SCH ×2 (09:18→21:44)
[2017-08-20] MEDS: Vancomycin HCl 25 MG/ML Oral PO SCH ×4 (09:19→21:44)
[2017-08-20] MEDS: Furosemide 20 MG TAB PO SCH (09:19)
[2017-08-20] MEDS: Ferrous Sulfate 325 MG TAB PO SCH ×2 (09:19→21:43)
[2017-08-20] MEDS: Carvedilol 25 MG TAB PO SCH ×2 (09:19→17:58)
[2017-08-20] MEDS: Sulfameth/Trimethoprim DS 800-160mg TAB PO SCH ×2 (09:19→21:43)
[2017-08-20] MEDS: Heparin 5,000 UNITS/ML VIAL SC SCH ×6 (09:20→21:48)
[2017-08-20 11:35] VITALS: BMI 55.1
[2017-08-20 14:40] LABS: Vancomycin, Trough 26.9 ug/mL
--- NOTE | 2017-08-20 15:30 | PDOC.PN ---
- Subjective Encounter Start Date: 08/20/17 Encounter Start Time: 13:00 Subjective: pt in bed no complains of pain. Diarrhea has improved - Objective Resuscitation Status: Resuscitation Status FULL:Full Resuscitation Vital Signs & Weight: Vital Signs (12 hours) Temp Pulse Resp BP BP Pulse Ox 08/20/17 12:45 98.2 F 65 16 114/55 L 93 L 08/20/17 09:18 123/62 08/20/17 08:17 97.9 F 77 20 95 08/20/17 07:45 97.9 F 77 20 123/62 95 08/20/17 03:56 97.8 F 73 18 115/63 95 Weight Admit Weight 362 lb Weight 362 lb 9 oz I&O: 08/19/17 08/20/17 08/21/17 06:59 06:59 06:59 Intake Total 3525 3210 Output Total 1475 2750 Balance 2049 460 Result Diagrams: 08/19/17 08:41 08/19/17 08:41 Phys Exam - Physical Examination HEENT: PERRLA, moist MMs, sclera anicteric, TM's clear, oral pharynx no lesions , 2+ tonsils Neck: no nodes, no JVD, supple, full ROM Respiratory: no wheezing, no rales, no rhonchi, wheezing present, clear to auscultation bilateral Cardiovascular: RRR, no significant murmur, no rub, gallop, irregular Gastrointestinal: soft, non-tender, no distention, positive bowel sounds Dx/Plan - Plan 1) possible infection of left femur 2) cdiff 3) leukocytosis 4) htn 5) dehydation 6) aotic valve replacement 7) obesity 8) pressure ulcers stage 3-4 plan: pt s/p I&D 08/15, ID consulted for abx management. cx from I&D indicated Acinetobactor, proteus and coagulase neg staph. cdiff positive pt on vanco improving leukocyosis pt's heart rate and bp has improved. mild pulmonary edema noted on cxr, pt on po lasix will give one dose of iv. Pt is bed bound. high risk for DVT and PE. on sq heparin. pt has a espitia cath due to pressure ulcer not healing. will speak with bilingual case manager for discharge. surgery ok to discharge pt as long as it is not the same [facility]. Abx per ID * . * . Review of Systems - Review of Systems Eyes: negative: Pain, Vision Change, Conjunctivae Inflammation, Eyelid Inflammation, Redness, Other ENT: negative: Ear Pain, Ear Discharge, Nose Pain, Nose Discharge, Nose Congestion, Mouth Pain, Mouth Swelling, Throat Pain, Throat Swelling, Other Respiratory: negative: Cough, Dry, Shortness of Breath, Hemoptysis, SOB with Excertion, Pleuritic Pain, Sputum, Wheezing Cardiovascular: negative: chest pain, palpitations, orthopnea, paroxysmal nocturnal dyspnea, edema, light headedness, other Gastrointestinal: negative: Nausea, Vomiting, Abdominal Pain, Diarrhea, Constipation, Melena, Hematochezia, Other Genitourinary: negative: Dysuria, Frequency, Incontinence, Hematuria, Retention , Other - Medications/Allergies Allergies/Adverse Reactions: Allergies Allergy/AdvReac Type Severity Reaction Status Date / Time pineapple [Pineapple] Allergy Verified 07/05/17 02:21 Medications: Current Medications Acetaminophen (Tylenol) 1,000 mg PO Q4H PRN PRN Reason: Headache/Fever or Pain Hydrocodone Bitart/Acetaminophen ([place] 5/325) 1 tab PO Q4H PRN PRN Reason: Moderate Pain (4-6) Last Admin: 08/18/17 12:07 Dose: 1 tab Hydrocodone Bitart/Acetaminophen ([place] 5/325) 2 tab PO Q4H PRN PRN Reason: Severe Pain (7-10) Last Admin: 08/15/17 04:50 Dose: 2 tab Aspirin (Aspirin Chewable) 81 mg PO DAILY [facility] Last Admin: 08/20/17 09:19 Dose: 81 mg Carvedilol (Coreg) 25 mg PO BID-[facility] Last Admin: 08/20/17 09:19 Dose: 25 mg Cefazolin Sodium (Ancef) 2 gm SLOW IVP ONCALL-OR [facility] Famotidine (Pepcid) 20 mg PO BID [facility] Last Admin: 08/20/17 09:18 Dose: 20 mg Fentanyl (Sublimaze) 25 mcg SLOW IVP Q2H PRN PRN Reason: Breakthrough Pain Last Admin: 08/17/17 10:27 Dose: 25 mcg Ferrous Sulfate (Feosol) 325 mg PO BID [facility] Last Admin: 08/20/17 09:19 Dose: 325 mg Furosemide (Lasix) 20 mg PO DAILY [facility] Last Admin: 08/20/17 09:19 Dose: 20 mg Heparin Sodium (Porcine) (Heparin) 5,000 units SC TID [facility] Last Admin: 08/20/17 09:20 Dose: 5,000 units Sodium Chloride (Normal Saline 0.9%) 1,000 mls @ 50 mls/hr IV .Q20H [facility] Last Admin: 08/19/17 21:09 Dose: Not Given Meropenem 1 gm/ Device 50 mls @ 100 mls/hr IVPB Q8HR [facility] Last Admin: 08/20/17 13:03 Dose: 50 mls Vancomycin HCl 1.5 gm/ Sodium (Chloride) 300 mls @ 200 mls/hr IVPB Q24HR@0300 [facility] Lisinopril (Zestril) 20 mg PO DAILY [facility] Last Admin: 08/20/17 09:18 Dose: 20 mg Miscellaneous Medication (Pharmacy To Dose) 1 each IVPB PRN PRN PRN Reason: Pharmacy to dose Nystatin (Mycostatin Powder) 0.5 gm TOP BID PRN PRN Reason: Rash/Topical Irritation Ondansetron HCl (Zofran) 4 mg IVP Q6H PRN PRN Reason: Nausea/Vomiting Senna (Senokot) 1 tab PO HSPRN PRN PRN Reason: Constipation Sodium Chloride (Flush - Normal Saline) 10 ml IVF Q12HR [facility] Last Admin: 08/20/17 09:20 Dose: 10 ml Sodium Chloride (Flush - Normal Saline) 10 ml IVF PRN PRN PRN Reason: Saline Flush Tramadol HCl (Ultram) 50 mg PO Q4H PRN PRN Reason: Moderate Pain (4-6) Tramadol HCl (Ultram) 100 mg PO Q4H PRN PRN Reason: Severe Pain (7-10) Trimethoprim/Sulfamethoxazole (Bactrim Ds) 2 tab PO BID [facility] Last Admin: 08/20/17 09:19 Dose: 2 tab Vancomycin HCl (First Vancomycin) 125 mg PO QID [facility] Last Admin: 08/20/17 12:49 Dose: 125 mg
[2017-08-20] MEDS: Sodium Chloride 0.9% 1,000 ML IV SCH (17:59)
[2017-08-21] MEDS: HYDROcodone/Acetaminophen 5/325 mg Tablet PO PRN (02:09)
[2017-08-21] MEDS: Vancomycin HCl 1.5 GM in Sodium Chloride 0.9% 250 ML 300 ML IVPB SCH (02:10)
[2017-08-21] MEDS: MEROPENEM 1 GM/50 ML 1 GM in Premix Bag 1 BAG IVPB SCH ×3 (06:10→21:54)
[2017-08-21] MEDS: Carvedilol 25 MG TAB PO SCH ×2 (09:06→16:27)
[2017-08-21] MEDS: Famotidine 20 MG TAB PO SCH ×2 (09:06→21:54)
[2017-08-21] MEDS: Ferrous Sulfate 325 MG TAB PO SCH ×2 (09:06→21:55)
[2017-08-21] MEDS: Furosemide 20 MG TAB PO SCH (09:07)
[2017-08-21] MEDS: Heparin 5,000 UNITS/ML VIAL SC SCH ×6 (09:07→21:55)
[2017-08-21] MEDS: Lisinopril 20 MG TAB PO SCH (09:08)
[2017-08-21] MEDS: Vancomycin HCl 25 MG/ML Oral PO SCH ×4 (09:08→21:54)
[2017-08-21] MEDS: Sulfameth/Trimethoprim DS 800-160mg TAB PO SCH ×2 (09:08→21:55)
--- NOTE | 2017-08-21 14:34 | PDOC.PN ---
- Subjective Encounter Start Date: 08/21/17 Encounter Start Time: 11:00 Fidencio is seen today, alert and oriented. She is on wound vac for her femur infection. pt remains septic. - Objective Resuscitation Status: Resuscitation Status FULL:Full Resuscitation MAR Reviewed: Yes Vital Signs & Weight: Vital Signs (12 hours) Temp Pulse Resp BP BP Pulse Ox 08/21/17 11:38 97.9 F 62 16 101/58 L 94 L 08/21/17 09:08 123/62 08/21/17 08:31 97.1 F L 67 16 129/63 97 08/21/17 08:00 97.1 F L 67 16 97 08/21/17 03:36 97.6 F 70 18 144/64 H 95 Weight Admit Weight 362 lb Weight 362 lb 9 oz I&O: 08/20/17 08/21/17 08/22/17 06:59 06:59 06:59 Intake Total 3210 1990 840 Output Total 2750 800 800 Balance 460 1190 40 Result Diagrams: 08/19/17 08:41 08/19/17 08:41 Radiology Reviewed by me: Yes EKG Reviewed by me: Yes Phys Exam - Physical Examination HEENT: PERRLA, moist MMs Neck: no nodes, no JVD Respiratory: no wheezing, no rales Cardiovascular: RRR, no significant murmur Gastrointestinal: soft, non-tender Musculoskeletal: no edema, pulses present Neurological: non-focal, normal sensation Lymphatic: no nodes Psychiatric: normal affect, A&O x 3 Skin: no rash, normal turgor Dx/Plan (1) Cellulitis and abscess of leg Code(s): L02.419 - CUTANEOUS ABSCESS OF LIMB, UNSPECIFIED; L03.119 - CELLULITIS OF UNSPECIFIED PART OF LIMB Status: Acute (2) Sepsis Code(s): A41.9 - SEPSIS, UNSPECIFIED ORGANISM Status: Acute (3) Surgical site infection Code(s): T81.4XXA - INFECTION FOLLOWING A PROCEDURE, INITIAL ENCOUNTER Status : Acute Qualifiers: Encounter type: initial encounter Qualified Code(s): T81.4XXA - Infection following a procedure, initial encounter Comment: Left ORIF infection , on IV antibitois for MRSA and Acenetobacter per Dr. Fuentes. (4) Hypertension Code(s): I10 - ESSENTIAL (PRIMARY) HYPERTENSION Status: Chronic Comment: Well controlled, at Goal, restarted home meds. (5) Morbid obesity Code(s): E66.01 - MORBID (SEVERE) OBESITY DUE TO EXCESS CALORIES Status: Chronic (6) Clostridium difficile diarrhea Code(s): A04.72 - ENTEROCOLITIS D/T CLOSTRIDIUM DIFFICILE, NOT SPCF RECUR Status: Acute Comment: Patient is on Po Vancomycin, persistant Diarrhea. Will closley Monitor. (7) Aortic valve replaced Code(s): Z95.2 - PRESENCE OF PROSTHETIC HEART VALVE Status: Acute - Plan cont current plan of care, plan discussed w/ family, continue antibiotics, PT/OT , respiratory therapy, DVT proph w/lovenox * . - Discharge Day Encounter end time: 11:35 Review of Systems - Review of Systems Constitutional: malaise. negative: fever, chills, sweats, weakness, other Eyes: negative: Pain, Vision Change, Conjunctivae Inflammation, Eyelid Inflammation, Redness, Other ENT: negative: Ear Pain, Ear Discharge, Nose Pain, Nose Discharge, Nose Congestion, Mouth Pain, Mouth Swelling, Throat Pain, Throat Swelling, Other Respiratory: negative: Cough, Dry, Shortness of Breath, Hemoptysis, SOB with Excertion, Pleuritic Pain, Sputum, Wheezing Cardiovascular: negative: chest pain, palpitations, orthopnea, paroxysmal nocturnal dyspnea, edema, light headedness, other Gastrointestinal: negative: Nausea, Vomiting, Abdominal Pain, Diarrhea, Constipation, Melena, Hematochezia, Other Musculoskeletal: negative: Neck Pain, Shoulder Pain, Arm Pain, Back Pain, Hand Pain, Leg Pain, Foot Pain, Other Skin: negative: Rash, Lesions, [place], Bruising, Other - Medications/Allergies Allergies/Adverse Reactions: Allergies Allergy/AdvReac Type Severity Reaction Status Date / Time pineapple [Pineapple] Allergy Verified 07/05/17 02:21 Medications: Current Medications Acetaminophen (Tylenol) 1,000 mg PO Q4H PRN PRN Reason: Headache/Fever or Pain Hydrocodone Bitart/Acetaminophen ([place] 5/325) 1 tab PO Q4H PRN PRN Reason: Moderate Pain (4-6) Last Admin: 08/18/17 12:07 Dose: 1 tab Hydrocodone Bitart/Acetaminophen ([place] 5/325) 2 tab PO Q4H PRN PRN Reason: Severe Pain (7-10) Last Admin: 08/21/17 02:09 Dose: 2 tab Aspirin (Aspirin Chewable) 81 mg PO DAILY [facility] Last Admin: 08/21/17 09:06 Dose: 81 mg Carvedilol (Coreg) 25 mg PO BID[facility] Last Admin: 08/21/17 09:06 Dose: 25 mg Cefazolin Sodium (Ancef) 2 gm SLOW IVP [facility] Famotidine (Pepcid) 20 mg PO BID [facility] Last Admin: 08/21/17 09:06 Dose: 20 mg Fentanyl (Sublimaze) 25 mcg SLOW IVP Q2H PRN PRN Reason: Breakthrough Pain Last Admin: 08/17/17 10:27 Dose: 25 mcg Ferrous Sulfate (Feosol) 325 mg PO BID [facility] Last Admin: 08/21/17 09:06 Dose: 324 mg Furosemide (Lasix) 20 mg PO DAILY [facility] Last Admin: 08/21/17 09:07 Dose: 20 mg Heparin Sodium (Porcine) (Heparin) 5,000 units SC TID [facility] Last Admin: 08/21/17 14:01 Dose: 5,000 units Sodium Chloride (Normal Saline 0.9%) 1,000 mls @ 50 mls/hr IV .Q20H [facility] Last Admin: 08/20/17 17:59 Dose: Not Given Meropenem 1 gm/ Device 50 mls @ 100 mls/hr IVPB Q8HR [facility] Last Admin: 08/21/17 14:01 Dose: 50 mls Vancomycin HCl 1.5 gm/ Sodium (Chloride) 300 mls @ 200 mls/hr IVPB Q24HR@0300 [facility] Last Admin: 08/21/17 02:10 Dose: 300 mls Lisinopril (Zestril) 20 mg PO DAILY [facility] Last Admin: 08/21/17 09:08 Dose: 20 mg Miscellaneous Medication (Pharmacy To Dose) 1 each IVPB PRN PRN PRN Reason: Pharmacy to dose Nystatin (Mycostatin Powder) 0.5 gm TOP BID PRN PRN Reason: Rash/Topical Irritation Ondansetron HCl (Zofran) 4 mg IVP Q6H PRN PRN Reason: Nausea/Vomiting Senna (Senokot) 1 tab PO HSPRN PRN PRN Reason: Constipation Sodium Chloride (Flush - Normal Saline) 10 ml IVF Q12HR [facility] Last Admin: 08/21/17 10:28 Dose: Not Given Sodium Chloride (Flush - Normal Saline) 10 ml IVF PRN PRN PRN Reason: Saline Flush Tramadol HCl (Ultram) 50 mg PO Q4H PRN PRN Reason: Moderate Pain (4-6) Tramadol HCl (Ultram) 100 mg PO Q4H PRN PRN Reason: Severe Pain (7-10) Trimethoprim/Sulfamethoxazole (Bactrim Ds) 2 tab PO BID [facility] Last Admin: 08/21/17 09:08 Dose: 2 tab Vancomycin HCl (First Vancomycin) 125 mg PO QID [facility] Last Admin: 08/21/17 14:00 Dose: 125 mg
[2017-08-21] MEDS: Sodium Chloride 0.9% 1,000 ML IV SCH (16:27)
[2017-08-22] MEDS: Vancomycin HCl 1.5 GM in Sodium Chloride 0.9% 250 ML 300 ML IVPB SCH (03:58)
[2017-08-22] MEDS: MEROPENEM 1 GM/50 ML 1 GM in Premix Bag 1 BAG IVPB SCH ×3 (06:57→21:00)
[2017-08-22] MEDS: Famotidine 20 MG TAB PO SCH ×2 (08:40→20:47)
[2017-08-22] MEDS: Sodium Chloride 0.9% 1,000 ML IV SCH (08:40)
[2017-08-22] MEDS: Carvedilol 25 MG TAB PO SCH ×2 (08:40→16:44)
[2017-08-22] MEDS: Heparin 5,000 UNITS/ML VIAL SC SCH ×6 (08:41→20:48)
[2017-08-22] MEDS: Lisinopril 20 MG TAB PO SCH (08:41)
[2017-08-22] MEDS: Furosemide 20 MG TAB PO SCH (08:41)
[2017-08-22] MEDS: Ferrous Sulfate 325 MG TAB PO SCH ×2 (08:41→20:47)
[2017-08-22] MEDS: Sulfameth/Trimethoprim DS 800-160mg TAB PO SCH ×2 (08:42→20:47)
[2017-08-22] MEDS: Vancomycin HCl 25 MG/ML Oral PO SCH ×4 (08:42→20:47)
--- NOTE | 2017-08-22 14:11 | PDOC.PN ---
- Subjective Encounter Start Date: 08/22/17 Encounter Start Time: 11:00 patient is seen today, alert and oriented. Explained to her she will be going to [facility]TAC to continue IV antibiotics for 40 total days till October 01 per ID. - Objective Resuscitation Status: Resuscitation Status FULL:Full Resuscitation MAR Reviewed: Yes Vital Signs & Weight: Vital Signs (12 hours) Temp Pulse Resp BP BP Pulse Ox 08/22/17 11:56 97.6 F 66 15 89/35 L 96 08/22/17 08:41 130/64 08/22/17 08:00 97.9 F 64 15 130/64 98 08/22/17 03:55 97.5 F L 67 18 114/62 98 Weight Admit Weight 362 lb Weight 362 lb 9 oz I&O: 08/21/17 08/22/17 08/23/17 06:59 06:59 06:59 Intake Total 19890 Output Total 800 1500 Balance 1190 720 Result Diagrams: 08/19/17 08:41 08/19/17 08:41 Radiology Reviewed by me: Yes Phys Exam - Physical Examination HEENT: PERRLA, moist MMs Neck: no nodes, no JVD Respiratory: no wheezing, no rales Cardiovascular: RRR, no significant murmur Gastrointestinal: soft, non-tender Musculoskeletal: no edema, pulses present Dx/Plan (1) Cellulitis and abscess of leg Code(s): L02.419 - CUTANEOUS ABSCESS OF LIMB, UNSPECIFIED; L03.119 - CELLULITIS OF UNSPECIFIED PART OF LIMB Status: Acute Comment: Will continue with ABX meropenam and TMP for 40 total days, at LTAC. (2) Sepsis Code(s): A41.9 - SEPSIS, UNSPECIFIED ORGANISM Status: Acute Comment: Improving WBC. (3) Surgical site infection Code(s): T81.4XXA - INFECTION FOLLOWING A PROCEDURE, INITIAL ENCOUNTER Status : Acute Qualifiers: Encounter type: initial encounter Qualified Code(s): T81.4XXA - Infection following a procedure, initial encounter Comment: Left ORIF infection , on IV antibitois for MRSA and Acenetobacter per Dr. Fuentes. (4) Hypertension Code(s): I10 - ESSENTIAL (PRIMARY) HYPERTENSION Status: Chronic Comment: Well controlled, at Goal, restarted home meds. (5) Morbid obesity Code(s): E66.01 - MORBID (SEVERE) OBESITY DUE TO EXCESS CALORIES Status: Chronic (6) Clostridium difficile diarrhea Code(s): A04.72 - ENTEROCOLITIS D/T CLOSTRIDIUM DIFFICILE, NOT SPCF RECUR Status: Acute Comment: Patient is on Po Vancomycin, persistant Diarrhea. Will closley Monitor. (7) Aortic valve replaced Code(s): Z95.2 - PRESENCE OF PROSTHETIC HEART VALVE Status: Acute - Plan cont current plan of care, continue antibiotics, PT/OT, hospice social worker, incentive spirometry, DVT proph w/lovenox * . - Discharge Day Encounter end time: 11:35 Review of Systems - Review of Systems Eyes: negative: Pain, Vision Change, Conjunctivae Inflammation, Eyelid Inflammation, Redness, Other ENT: negative: Ear Pain, Ear Discharge, Nose Pain, Nose Discharge, Nose Congestion, Mouth Pain, Mouth Swelling, Throat Pain, Throat Swelling, Other Respiratory: negative: Cough, Dry, Shortness of Breath, Hemoptysis, SOB with Excertion, Pleuritic Pain, Sputum, Wheezing Cardiovascular: negative: chest pain, palpitations, orthopnea, paroxysmal nocturnal dyspnea, edema, light headedness, other Gastrointestinal: negative: Nausea, Vomiting, Abdominal Pain, Diarrhea, Constipation, Melena, Hematochezia, Other Musculoskeletal: Leg Pain. negative: Neck Pain, Shoulder Pain, Arm Pain, Back Pain, Hand Pain, Foot Pain, Other Skin: negative: Rash, Lesions, Dewayne, Bruising, Other - Medications/Allergies Allergies/Adverse Reactions: Allergies Allergy/AdvReac Type Severity Reaction Status Date / Time pineapple [Pineapple] Allergy Verified 07/05/17 02:21 Medications: Current Medications Acetaminophen (Tylenol) 1,000 mg PO Q4H PRN PRN Reason: Headache/Fever or Pain Hydrocodone Bitart/Acetaminophen ([place] 5/325) 1 tab PO Q4H PRN PRN Reason: Moderate Pain (4-6) Last Admin: 08/18/17 12:07 Dose: 1 tab Hydrocodone Bitart/Acetaminophen ([place] 5/325) 2 tab PO Q4H PRN PRN Reason: Severe Pain (7-10) Last Admin: 08/21/17 02:09 Dose: 2 tab Aspirin (Aspirin Chewable) 81 mg PO DAILY [facility] Last Admin: 08/22/17 08:40 Dose: 81 mg Carvedilol (Coreg) 25 mg PO BID-[facility] Last Admin: 08/22/17 08:40 Dose: 25 mg Cefazolin Sodium (Ancef) 2 gm SLOW IVP ONCALL-OR [facility] Famotidine (Pepcid) 20 mg PO BID [facility] Last Admin: 08/22/17 08:40 Dose: 20 mg Fentanyl (Sublimaze) 25 mcg SLOW IVP Q2H PRN PRN Reason: Breakthrough Pain Last Admin: 08/17/17 10:27 Dose: 25 mcg Ferrous Sulfate (Feosol) 325 mg PO BID [facility] Last Admin: 08/22/17 08:41 Dose: 325 mg Furosemide (Lasix) 20 mg PO DAILY [facility] Last Admin: 08/22/17 08:41 Dose: 20 mg Heparin Sodium (Porcine) (Heparin) 5,000 units SC TID [facility] Last Admin: 08/22/17 08:41 Dose: 5,000 units Sodium Chloride (Normal Saline 0.9%) 1,000 mls @ 50 mls/hr IV .Q20H [facility] Last Admin: 08/22/17 08:40 Dose: Not Given Meropenem 1 gm/ Device 50 mls @ 100 mls/hr IVPB Q8HR [facility] Last Admin: 08/22/17 06:57 Dose: 50 mls Vancomycin HCl 1.5 gm/ Sodium (Chloride) 300 mls @ 200 mls/hr IVPB Q24HR@0300 [facility] Last Admin: 08/22/17 03:58 Dose: 300 mls Lisinopril (Zestril) 20 mg PO DAILY [facility] Last Admin: 08/22/17 08:41 Dose: 20 mg Miscellaneous Medication (Pharmacy To Dose) 1 each IVPB PRN PRN PRN Reason: Pharmacy to dose Nystatin (Mycostatin Powder) 0.5 gm TOP BID PRN PRN Reason: Rash/Topical Irritation Ondansetron HCl (Zofran) 4 mg IVP Q6H PRN PRN Reason: Nausea/Vomiting Senna (Senokot) 1 tab PO HSPRN PRN PRN Reason: Constipation Sodium Chloride (Flush - Normal Saline) 10 ml IVF Q12HR [facility] Last Admin: 08/22/17 08:42 Dose: Not Given Sodium Chloride (Flush - Normal Saline) 10 ml IVF PRN PRN PRN Reason: Saline Flush Tramadol HCl (Ultram) 50 mg PO Q4H PRN PRN Reason: Moderate Pain (4-6) Tramadol HCl (Ultram) 100 mg PO Q4H PRN PRN Reason: Severe Pain (7-10) Trimethoprim/Sulfamethoxazole (Bactrim Ds) 2 tab PO BID [facility] Last Admin: 08/22/17 08:42 Dose: 2 tab Vancomycin HCl (First Vancomycin) 125 mg PO QID [facility] Last Admin: 08/22/17 12:38 Dose: 125 mg
[2017-08-22] MEDS: HYDROcodone/Acetaminophen 5/325 mg Tablet PO PRN (23:50)
[2017-08-23 02:46] LABS: Vancomycin, Trough 26.3 ug/mL
[2017-08-23] MEDS: Sodium Chloride 0.9% 1,000 ML IV SCH (03:55)
[2017-08-23] MEDS: Vancomycin HCl 1.5 GM in Sodium Chloride 0.9% 250 ML 300 ML IVPB SCH (04:00)
[2017-08-23] MEDS: MEROPENEM 1 GM/50 ML 1 GM in Premix Bag 1 BAG IVPB SCH (06:34)
[2017-08-23] MEDS: Ferrous Sulfate 325 MG TAB PO SCH (08:45)
[2017-08-23] MEDS: Sulfameth/Trimethoprim DS 800-160mg TAB PO SCH (08:45)
[2017-08-23] MEDS: Famotidine 20 MG TAB PO SCH (08:45)
[2017-08-23] MEDS: Lisinopril 20 MG TAB PO SCH (08:45)
[2017-08-23] MEDS: Furosemide 20 MG TAB PO SCH (08:45)
[2017-08-23] MEDS: Carvedilol 25 MG TAB PO SCH (08:45)
[2017-08-23] MEDS: Vancomycin HCl 25 MG/ML Oral PO SCH (08:46)
[2017-08-23] MEDS: Heparin 5,000 UNITS/ML VIAL SC SCH ×2 (08:46)
[2017-08-23 11:41] VITALS: BP 115/55; TEMP 98.1
--- NOTE | 2017-08-23 12:04 | DIS ---
DATE OF ADMISSION: 08/14/2017 DATE OF DISCHARGE: 08/23/2017 ADMITTING DIAGNOSIS: Acute left femur infection postop. DISCHARGE DIAGNOSES: Acute left femur infection with Acinetobacter and Proteus. SECONDARY DIAGNOSES: 1. Clostridium difficile colitis. 2. Multiple decubitus ulcers in the buttocks bilaterally. 3. Hypertension. 4. Coronary artery disease. CONSULTATIONS: Dr. Shon Lazaro HISTORY OF PRESENT ILLNESS/HOSPITAL COURSE: In brief, this is a 72-year-old white female who had a h istory of left femur fracture and was discharged to a [place] facility for physical therapy and she h ad an elevated white count at the office visit and the patient had her wound VAC off because of the t unneling. The patient returned back to the hospital for increasing serosanguineous discharge. She w as seen by Dr. Delatorre and he opened the wound in the OR and had a debridement. There was a concern f or worsening white count, so the body fluid was sent for culture which ultimately grew Proteus and Ac inetobacter. The patient was started on wound VAC and she continued with wound care. She also had m ultiple wounds on the lower back, in the buttock area, at the decubitus where it is causing problems with urination. The patient was started on Post catheter for that reason. The patient was closely monitored, did not have any further complications following the surgery, but the patient had a worsen ing white count and fevers. She was started on multiple antibiotics and the Proteus was resistant to many antibiotics except for meropenem, so she was continued on the meropenem along with the vancomyc in IV and the trimethoprim sulfamethoxazole. The patient was started on this drug for Acinetobacter infection. Ideally, it could have been treated with colistin, but because of the worsening renal fun ctions the patient was started on Bactrim. The patient tolerated the antibiotics very well, but it w as decided by Infectious Disease that the patient needs to be on this antibiotic for at least 40 days ending on 10/01/2017. The patient was needing a higher level of care at [facility] as the patient had mul tiple wounds including the wound VAC and decubitus ulcers and the patient would need weekly CMPs to b e done to check on the kidney functions as the patient is on Bactrim and meropenem. This was suggest ed by Infectious Disease. We will closely monitor the patient. We will advise LTAC closely monitor the patient for long-term antibiotics. The patient also developed C. diff infection and she was on p .o. vancomycin and her diarrhea had stopped 2 days ago, but she would need to continue on the antibio tics to complete the course of 2 weeks, which is 10 more days of p.o. antibiotics. The patient is st able on the day of discharge, she was discharged to LTAC yesterday after [facility]. PHYSICAL EXAMINATION: On date of discharge: VITAL SIGNS: Blood pressures are 154/63. Heart rate is 67, respiration rate 16, saturation 98%. GENERAL: The patient is moderately built, moderately nourished, does not appear in acute distress. CARDIOVASCULAR: S1, S2 normal. No murmurs, rubs or gallops. LUNGS: Bilateral air entry was equal. No wheezing, no crackles. ABDOMEN: Soft, nontender. No guarding or rebound tenderness. Bowel sounds normal. DISCHARGE MEDICATIONS: Famotidine 20 mg p.o. daily, Lasix 20 mg p.o. daily, heparin 5000 subcu t.i.d ., lactobacillus 1 tablet p.o. t.i.d.., Loratadine 10 mg p.o. daily, meropenem 1 gram IV q.8h. The pa tient will continue for a total of 40 days, last day being 10/01/2017, and the patient will get weekl y CMP to check the kidney functions. Tramadol 50 mg q.4. p.r.n., docusate 100 mg p.o. b.i.d., aspir in 81 mg p.o. daily, Coreg 6.125 mg p.o. daily, ferrous sulfate 325 mg p.o. daily, lisinopril 20 mg p .o. daily, Bactrim 2 tablets p.o. b.i.d. continue until 10/01/2017. Vancomycin p.o. on 125 mg p.o. q .i.d., continue for 10 more days. Lisinopril 20 mg p.o. daily. DISCHARGE INSTRUCTIONS: 1. Continue activity as tolerated. Advised to follow up with orthopedics at the [facility] if any availab le for general consult. 2. The patient will also follow up with Infectious Disease at the facility for any questions, but o kumar need to follow up with Dr. Fuentes after completion of the antibiotics. 3. Continue the regular diet. DICTATING PHYSICIAN: Dr. Min Knapp. I spent 45 minutes with this patient on the day of discharge.
[2017-08-23] MEDS ORDERED: Vancomycin HCl 1 GM in Premix Bag 1 BAG IVPB SCH (14:00)
== END 2017-08-23 12:02 | DRG 856 ==
LOC: SURG A 12:22
PROVIDERS: ADMIT Orthopaedic Surgery; ATTEND Orthopaedic Surgery
PROC: 0JBM0ZZ Excision of Left Upper Leg Subcutaneous Tissue and Fascia, Open Approach (ICD-10-PCS; principal; 2017-08-14)
DX: T81.4XXA Infection following a procedure, initial encounter (principal); L89.324 Pressure ulcer of left buttock, stage 4; L89.314 Pressure ulcer of right buttock, stage 4; A41.9 Sepsis, unspecified organism; A04.72 Enterocolitis due to Clostridium difficile, not specified as recurrent; I27.20 Pulmonary hypertension, unspecified; E66.01 Morbid (severe) obesity due to excess calories; E86.0 Dehydration; Z68.43 Body mass index [BMI] 50.0-59.9, adult; L02.416 Cutaneous abscess of left lower limb; L03.116 Cellulitis of left lower limb; B96.4 Proteus (mirabilis) (morganii) as the cause of diseases classified elsewhere; B96.89 Other specified bacterial agents as the cause of diseases classified elsewhere; Z95.2 Presence of prosthetic heart valve; I10 Essential (primary) hypertension; I25.10 Atherosclerotic heart disease of native coronary artery without angina pectoris; Z95.0 Presence of cardiac pacemaker; E78.5 Hyperlipidemia, unspecified; M13.0 Polyarthritis, unspecified
CPT/HCPCS: 36415; 36416; 71045; 80048; 80202; 81001; 83735; 84100; 85025; 87040; 87070; 87077; 87086; 87186; 87205; 87324; 87449; A4216; G8978-GP-CM; G8979-GP-CL; G8987-GO-CL; G8988-GO-CK; J0696; J1580; J1644; J1940; J2001; J2185; J2704; J3010; J3370; J3475; J7050